=== PATIENT | male | born 1945 | race Caucasian/White ===

== ENCOUNTER 2019-09-30 12:02 | Inpatient (IN) | payer OTHER ==
[~2019-09-30] VITALS: Ht 177.8 cm; Wt 112.2 kg
[2019-09-30] MEDS ORDERED: SUCCINYLCHOLINE CHLORIDE 20 MG/ML 10ML VIAL IV ONE ×2 (12:12→12:15)
[2019-09-30] MEDS ORDERED: ETOMIDATE (2MG/ML) 20ML VIAL IV ONE ×2 (12:12→12:15)
[2019-09-30] MEDS: MIDAZOLAM DRIP 50 mg/50mL 50 ML IV SCH ×2 (12:15→21:53)
[2019-09-30] MEDS ORDERED: MIDAZOLAM DRIP 50 mg/50mL 50 ML IV ONE (12:20)
[2019-09-30] MEDS ORDERED: PROPOFOL 100 ML IV ONE (12:44)
[2019-09-30] MEDS ORDERED: SODIUM CHLORIDE 0.9% 1,000 ML IV ONE ×2 (12:45→12:50)
[2019-09-30 12:46] LABS: Basophils # (auto) 0.1 10 ^3/uL (0-0.2); Basophils % (auto) 0.7 % (0.0-2.0); Eosinophils # (auto) 0 10 ^3/uL (0-0.8); Lymphocytes # (auto) 1.5 10 ^3/uL (0.4-5.4); Lymphocytes % (auto) 17.6 % (10.0-50.0); Mean Corpuscular Hgb Conc. 31.3 g/dL (32.0-36.0); Mean Corpuscular Volume 86.3 fL (80.0-100.0); Monocytes # (auto) 0.7 10 ^3/uL (0-1.3); Monocytes % (auto) 8.1 % (0.0-12.0); Neutrophils # (auto) 6.3 10 ^3/uL (1.6-8.6); Neutrophils % (auto) 73.6 % (37.0-80.0); Nucleated Red Blood Cells % 0.3 %; Platelet Count (auto) 273 10^3/uL (140-450); Red Blood Cells 5.56 10^6/uL (4.5-5.90); Red Cell Distribution Width 18.4 % (11.8-14.3); White Blood Cell 8.6 10^3/uL (4.4-10.8)
[2019-09-30] MEDS ORDERED: InsuLIN R (HUMAN) 100 UNITS in SODIUM CHL 0.9% 99 ML IV SCH ×2 (12:50→18:04)
[2019-09-30] MEDS: SODIUM CHLORIDE 0.9% 1,000 ML IV SCH ×7 (12:50→22:04)
[2019-09-30] MEDS: PROPOFOL 100 ML IV SCH ×2 (12:50→22:41)
[2019-09-30] MEDS ORDERED: AZITHROMYCIN 500MG/ 250ML 250 ML IV ONE (13:00)
[2019-09-30] MEDS ORDERED: DEXTROSE (50%) 50ML SYRG IV PRN ×2 (13:00→18:15)
[2019-09-30] MEDS ORDERED: PIPERACILLIN-TAZOB 3.375GM 100 ML IV ONE (13:00)
[2019-09-30] MEDS ORDERED: SODIUM BICARBONATE 8.4 % INJ 50ML VIAL IV ONE ×3 (13:00→19:15)
[2019-09-30] MEDS ORDERED: INSULIN LANTUS (GLARGINE) 1 /0.01ml (100units/ml) SC ONE ×2 (13:00→18:15)
[2019-09-30] MEDS ORDERED: ACETAMINOPHEN 120 MG RECT SUPP PR ONE (13:04)
[2019-09-30 13:05] LABS: Albumin 2.7 g/dL (3.4-5.0); Anion Gap 22 (5-15); Blood Urea Nitrogen 13 mg/dL (7-18); Calcium 8.1 mg/dL (8.5-10.1); Carbon Dioxide 12 mmol/L (21-32); Chloride 99 mmol/L (98-107); Lactic Acid w/Reflex 11.8 mmol/L (0.4-2.0); Magnesium 2.5 mg/dL (1.6-2.6); Potassium 4.6 mmol/L (3.5-5.1); Sodium 133 mmol/L (136-145)
[2019-09-30 13:13] LABS: Alanine Aminotransferase 78 U/L (16-61); Alkaline Phosphatase 139 U/L (45-117); Aspartate Aminotransferase 97 U/L (15-37); BUN/Creatinine Ratio 7.1; Bilirubin, Total 0.3 mg/dL (0.2-1.0); GFR African American 47 mL/min; GFR Non-African American 39 mL/min; Lactate Dehydrogenase 596 U/L (87-241); Total Protein 7.8 g/dL (6.4-8.2)
[2019-09-30 13:30] LABS: Glucose 545 mg/dL (74-106)
[2019-09-30] MEDS ORDERED: ACETAMINOPHEN 650 MG RECT SUPP PR ONE (13:30)
[2019-09-30 13:36] LABS: CRP High Sensitivity > 19 mg/dL (< 0.3)
[2019-09-30 13:37] LABS: Urine Bacteria NONE SEEN /hpf (None Seen); Urine Blood 3+ /uL (Negative); Urine Mucus MODERATE (None Seen); Urine Specific Gravity 1.016 (1.001-1.035); Urine WBC 3 /hpf (0 - 3)
[2019-09-30] MEDS: ACCU-CHEK COMFORT CURVE STRIP VI SCH ×7 (13:45→23:54)
[2019-09-30] MEDS ORDERED: SODIUM CHLORIDE 0.9% 1,000 ML IV SCH ×3 (14:24→18:50)
[2019-09-30] MEDS ORDERED: DexAMETHasone SOD PHOS 10MG/1ML VIAL INJ IV ONE (14:30)
[2019-09-30] MEDS ORDERED: PANTOPRAZOLE 40 MG/10 ML VIAL INJ IV ONE (14:30)
[2019-09-30] MEDS ORDERED: DOCUSATE SOD 100 MG CAP PO PRN (14:30)
[2019-09-30] MEDS ORDERED: NITROGLYCERIN 0.4 MG SL TAB SL PRN ×2 (14:30→18:15)
[2019-09-30] MEDS ORDERED: ONDANSETRON HCL 4 MG/2 ML VIAL IV PRN (14:30)
[2019-09-30] MEDS ORDERED: MORPHINE SULF INJ 2 MG/ML SYRINGE 1ML IV PRN ×2 (14:30→18:15)
[2019-09-30] MEDS: D5W/SOD CHL 0.45%/KCL 20MEQ 1,000 ML IV SCH (18:04)
[2019-09-30] MEDS ORDERED: POTASSIUM CHL 20MEQ/100ML 200 ML IV PRN (18:15)
[2019-09-30 18:47] VITALS: BP 105/50
[2019-09-30] MEDS: cefTRIAXone 1GM/50ML D5W 50 ML IV SCH (18:54)
[2019-09-30] MEDS: MAGNESIUM SULFATE 1GM/100ML 200 ML IV ONE ×2 (18:55→18:58)
[2019-09-30 19:50] LABS: Basophils # (auto) 0 10 ^3/uL (0-0.2); Basophils % (auto) 0.2 % (0.0-2.0); Eosinophils # (auto) 0 10 ^3/uL (0-0.8); Hematocrit 43.7 % (41.0-53.0); Hemoglobin 14.3 g/dL (13.5-17.5); Lymphocytes # (auto) 0.2 10 ^3/uL (0.4-5.4); Lymphocytes % (auto) 2.7 % (10.0-50.0); Mean Corpuscular Hemoglobin 27.2 pg (28.0-32.0); Mean Corpuscular Hgb Conc. 32.6 g/dL (32.0-36.0); Mean Corpuscular Volume 83.4 fL (80.0-100.0); Monocytes # (auto) 0.2 10 ^3/uL (0-1.3); Monocytes % (auto) 4.1 % (0.0-12.0); Neutrophils # (auto) 5.7 10 ^3/uL (1.6-8.6); Nucleated Red Blood Cells % 0.1 %; Platelet Count (auto) 179 10^3/uL (140-450); Red Blood Cells 5.24 10^6/uL (4.5-5.90); Red Cell Distribution Width 17.3 % (11.8-14.3); White Blood Cell 6.1 10^3/uL (4.4-10.8)
[2019-09-30] MEDS ORDERED: methylPREDNISolone SOD SUCC 40 MG/ML VL IV ONE (20:15)
[2019-09-30] MEDS ORDERED: ACETAMINOPHEN 650 mg PER 20 mL UD PO ONE (20:15)
[2019-09-30] MEDS ORDERED: diphenhdrAMINE HCL 50 MG/1 ML VL IV ONE (20:15)
[2019-09-30 20:35] LABS: BUN/Creatinine Ratio 9.2; Calcium 7.6 mg/dL (8.5-10.1); Magnesium 2.8 mg/dL (1.6-2.6); Phosphorus 1.4 mg/dL (2.5-4.90); Potassium 3.8 mmol/L (3.5-5.1)
[2019-09-30 20:40] VITALS: BP 152/77
[2019-09-30] MEDS: TOCILIZUMAB 400 MG in SODIUM CHL 0.9% 80 ML IV SCH (20:45)
[2019-09-30 21:22] LABS: Amphetamine Screen, Urine NEGATIVE (NEGATIVE); Barbiturate Scree,Urine NEGATIVE (NEGATIVE); Benzodiazephine Screen, Urine POSITIVE (NEGATIVE); Cannabinoid Screen, Urine NEGATIVE (NEGATIVE); Cocaine Screen, Urine NEGATIVE (NEGATIVE); Opiate Scree,Urine NEGATIVE (NEGATIVE); Phencyclidine Screen, Urine NEGATIVE (NEGATIVE)
[2019-09-30] MEDS: ASCORBIC ACID 500 MG TAB PO SCH (21:52)
[2019-09-30] MEDS: DexAMETHasone SOD PHOS 4 MG/1ML SDV INJ IV SCH (21:52)
[2019-09-30] MEDS: FAMOTIDINE 20 MG TAB PO SCH (21:52)
[2019-09-30] MEDS ORDERED: FUROSEMIDE 40 MG/4 ML VIAL ONE (21:59)
[2019-09-30] MEDS ORDERED: FUROSEMIDE 40 MG/4 ML VIAL IV ONE (22:00)
[2019-09-30] MEDS ORDERED: POTA1080 (22:16)
[2019-09-30] MEDS ORDERED: GLIP10TA16 (22:16)
[2019-09-30] MEDS ORDERED: METF-372 (22:16)
[2019-09-30] MEDS ORDERED: LEVO150T10 (22:16)
[2019-09-30] MEDS ORDERED: BACL10TA (22:16)
[2019-09-30] MEDS ORDERED: MET25T (22:16)
[2019-09-30] MEDS ORDERED: GABA300C10 (22:16)
[2019-09-30] MEDS ORDERED: HYDR-4072 (22:16)
[2019-09-30] MEDS ORDERED: BRIM0.159 (22:16)
[2019-09-30] MEDS ORDERED: FLUO40CA (22:16)
[2019-09-30] MEDS ORDERED: LOVA40TA72 (22:16)
[2019-09-30] MEDS ORDERED: TAMS0.4C36 (22:16)
[2019-09-30] MEDS ORDERED: PRED-158 (22:16)
[2019-09-30 22:35] VITALS: BP 100/59
[2019-09-30 23:07] LABS: CRP High Sensitivity > 19.0 mg/dL (< 0.3); Lactate Dehydrogenase 695 U/L (87-241)
[2019-10-01] VITALS (12 sets, daily range): BP systolic 95–127; BP diastolic 49–57
[2019-10-01] MEDS: SODIUM CHLORIDE 0.9% 1,000 ML IV SCH ×2 (00:04→06:52)
[2019-10-01] MEDS: D5W/SOD CHL 0.45%/KCL 20MEQ 1,000 ML IV SCH ×2 (00:44→07:49)
[2019-10-01] MEDS: ACCU-CHEK COMFORT CURVE STRIP VI SCH ×14 (01:54→22:42)
[2019-10-01 02:05] LABS: Albumin 1.8 g/dL (3.4-5.0); Calcium 6.1 mg/dL (8.5-10.1)
[2019-10-01 02:10] LABS: Bilirubin, Total 0.3 mg/dL (0.2-1.0); Total Protein 5.9 g/dL (6.4-8.2)
[2019-10-01] MEDS: PROPOFOL 100 ML IV SCH ×3 (02:26→05:49)
[2019-10-01 04:04] LABS: INR 0.96 (0.9-1.15); Partial Thromboplastin Time 29.6 sec (23.64-32.05)
[2019-10-01] MEDS ORDERED: HEPARIN DRIP/D5W 100UNITS/ML 250 ML IV ONE (04:23)
[2019-10-01] MEDS ORDERED: HEPARIN SODIUM (PORCINE) 5000 UNITS/ML 1ML VIAL ONE ×2 (04:24→08:44)
[2019-10-01] MEDS ORDERED: HEPARIN SODIUM (PORCINE) 5000 UNITS/ML 1ML VIAL IV ONE (04:45)
[2019-10-01] MEDS ORDERED: InsuLIN R (HUMAN) 100 UNITS in SODIUM CHL 0.9% 99 ML IV SCH (05:08)
[2019-10-01 05:13] LABS: Basophils # (auto) 0 10 ^3/uL (0-0.2); Basophils % (auto) 0.3 % (0.0-2.0); Eosinophils # (auto) 0 10 ^3/uL (0-0.8); Hematocrit 36.5 % (41.0-53.0); Hemoglobin 12.1 g/dL (13.5-17.5); Lymphocytes # (auto) 0.2 10 ^3/uL (0.4-5.4); Lymphocytes % (auto) 3.7 % (10.0-50.0); Mean Corpuscular Hemoglobin 27.8 pg (28.0-32.0); Mean Corpuscular Hgb Conc. 33.2 g/dL (32.0-36.0); Mean Corpuscular Volume 83.7 fL (80.0-100.0); Monocytes # (auto) 0.1 10 ^3/uL (0-1.3); Monocytes % (auto) 2.7 % (0.0-12.0); Neutrophils # (auto) 4.3 10 ^3/uL (1.6-8.6); Neutrophils % (auto) 93.3 % (37.0-80.0); Nucleated Red Blood Cells % 0.1 %; Platelet Count (auto) 175 10^3/uL (140-450); Red Blood Cells 4.37 10^6/uL (4.5-5.90); Red Cell Distribution Width 17.7 % (11.8-14.3); White Blood Cell 4.6 10^3/uL (4.4-10.8)
[2019-10-01] MEDS: HEPARIN DRIP/D5W 100UNITS/ML 250 ML IV SCH (05:20)
[2019-10-01 05:34] LABS: BUN/Creatinine Ratio 9.9; Calcium 6.7 mg/dL (8.5-10.1); Potassium 4.2 mmol/L (3.5-5.1)
[2019-10-01] MEDS: MIDAZOLAM DRIP 50 mg/50mL 50 ML IV SCH (05:50)
[2019-10-01] MEDS ORDERED: InsuLIN REG 1unit/0.01ml Soln (100units/ml) ONE (06:25)
[2019-10-01] MEDS: InsuLIN REG 1unit/0.01ml Soln (100units/ml) SC SCH ×3 (06:52→17:00)
--- NOTE | 2019-10-01 06:54 | NUR ---
Respiratory note: RECEIVED PATIENT ON V2 V200 VENT ORALLY INTUBATED WITH AN 8.0 ETT SECURED VIA ODALYS AT THE 24CM MARKING AT THE LIP, AND MECHANICALLY VENTILATED WITH THE CHARTED SETTINGS. SPO2 95%, LUNG SOUNDS DIM T/O, NO SECRETIONS WHEN SUCTIONED. SKIN IS WARM/DRY TO THE TOUCH AND IS INTACT NEAR ODALYS SITE. THERE IS A NGT IN THE RIGHT NARE AND SECURED TO THE NOSE, AND A TRIPLE LUMEN CENTRAL LINE IS PLACED IN THE RIGHT IJ. NON PITTING EDEMA NOTED IN BILATERAL UPPER EXTREMITIES, AND PITTING EDEMA NOTED IN BILATERAL LOWER EXTREMITIES. NO NEW AM CXR TO ASSESS. PATIENT IS UNRESPONSIVE TO BOTH VERBAL/TACTILE STIMULI AND IS SEDATED ON VERSED AND PROPOFOL DRIPS. HE IS RESTING COMFORTABLY AND TOLERATING VENT WELL, NO CHANGES MADE. VENT PLUGGED INTO RED OUTLET AND ALL ALARMS ARE SET AND AUDIBLE. WILL CONTINUE TO ASSESS PATIENT WELL VENTILATOR FUNCTION.
[2019-10-01] MEDS ORDERED: methylPREDNISolone SOD SUCC 40 MG/ML VL IV ONE (08:15)
[2019-10-01] MEDS ORDERED: ACETAMINOPHEN 650 mg PER 20 mL UD PO ONE (08:15)
[2019-10-01] MEDS ORDERED: diphenhdrAMINE HCL 50 MG/1 ML VL IV ONE (08:15)
[2019-10-01] MEDS ORDERED: ceFAZolin 1GM/50ML 100 ML IV ONE (08:45)
[2019-10-01] MEDS ORDERED: INSULIN LANTUS (GLARGINE) 1 /0.01ml (100units/ml) SC SCH ×2 (10:00)
[2019-10-01] MEDS: TOCILIZUMAB 400 MG in SODIUM CHL 0.9% 80 ML IV SCH (10:00)
[2019-10-01] MEDS ORDERED: PIPERACILLIN-TAZOB 3.375GM 100 ML IV ONE (10:00)
[2019-10-01] MEDS ORDERED: AZITHROMYCIN 500MG/ 250ML 250 ML IV ONE (10:00)
[2019-10-01] MEDS ORDERED: ENOXAPARIN SOD 30 MG/0.3 ML SYRINGE SC SCH (10:00)
--- NOTE | 2019-10-01 10:18 | NUR ---
Respiratory note: VENT CHANGES MADE: RATE INCREASED TO 24, VT INCREASED TO 600, AND PEEP INCREASED TO [address] CRAMER'S VERBAL ORDER.
[2019-10-01] MEDS ORDERED: POTASSIUM PHOSPHATE 44 MEQ in D5W 5% 250 ML IV ONE (11:30)
[2019-10-01] MEDS ORDERED: FUROSEMIDE 40 MG/4 ML VIAL IV ONE (11:30)
[2019-10-01 11:40] LABS: Calcium 6.6 mg/dL (8.5-10.1); Potassium 4.1 mmol/L (3.5-5.1)
[2019-10-01 11:58] LABS: INR 0.98 (0.9-1.15)
[2019-10-01 12:03] LABS: Partial Thromboplastin Time 77.9 sec (23.64-32.05)
--- NOTE | 2019-10-01 12:20 | NUR ---
Respiratory note: FIO2 DECREASED TO 90% AT THIS TIME POST ABG RESULTS. RN MADE AWARE OF CHANGE. SPO2 MAINTAINED AT 97%, WILL CONTINUE TO TITRATE TOLERATED.
[2019-10-01] MEDS: DexAMETHasone SOD PHOS 4 MG/1ML SDV INJ IV SCH ×2 (12:30→22:21)
[2019-10-01] MEDS: cefTRIAXone 1GM/50ML D5W 50 ML IV SCH (12:30)
[2019-10-01] MEDS: ZINC SULFATE 220mg CAP or TAB PO SCH (12:30)
[2019-10-01] MEDS: AZITHROMYCIN 500MG/ 250ML 250 ML IV SCH (12:30)
[2019-10-01] MEDS ORDERED: SODIUM BICARBONATE 8.4 % INJ 50ML VIAL IV ONE (12:30)
[2019-10-01] MEDS: ASCORBIC ACID 500 MG TAB PO SCH ×2 (12:30→22:00)
[2019-10-01] MEDS ORDERED: MET25T PO (13:03)
[2019-10-01] MEDS ORDERED: TAMS0.4C36 PO (13:03)
[2019-10-01] MEDS ORDERED: GLIP10TA16 PO (13:03)
[2019-10-01] MEDS ORDERED: RAMI2.5C33 PO (13:03)
[2019-10-01] MEDS ORDERED: BRIM0.159 EACHEYE (13:03)
[2019-10-01] MEDS ORDERED: METF-372 PO (13:03)
[2019-10-01] MEDS ORDERED: POTA1080 PO (13:03)
[2019-10-01] MEDS ORDERED: PRED-158 PO (13:03)
[2019-10-01] MEDS ORDERED: FLUO40CA PO (13:03)
[2019-10-01] MEDS ORDERED: LOVA40TA72 PO (13:03)
[2019-10-01] MEDS ORDERED: GABA300C10 PO (13:03)
[2019-10-01] MEDS ORDERED: IBAN1TAB2 PO (13:03)
[2019-10-01] MEDS ORDERED: BACL10TA PO (13:03)
[2019-10-01] MEDS ORDERED: PANT40TA2 PO (13:03)
[2019-10-01] MEDS ORDERED: LEVO150T10 PO (13:03)
[2019-10-01] MEDS: IPRATROPIUM BROM 0.5 MG/2.5ML INH SOL NEB SCH ×3 (16:44→22:00)
[2019-10-01] MEDS: ALBUTEROL SULF 2.5 MG/0.5ML(0.5%) NEB SOLN NEB SCH ×3 (16:44→22:00)
[2019-10-01] MEDS ORDERED: SODIUM PHOSPHATES 20 MEQ in SODIUM CHL 0.9% 100 ML IV ONE (16:45)
[2019-10-01 17:09] LABS: BUN/Creatinine Ratio 8.1; Calcium 6.5 mg/dL (8.5-10.1); Potassium 3.9 mmol/L (3.5-5.1)
[2019-10-01 17:27] LABS: INR 0.97 (0.9-1.15); Partial Thromboplastin Time 56.4 sec (23.64-32.05)
[2019-10-01] MEDS: SODIUM BICARB 50ML SYR 75 ML in SOD CHL 0.45% 1,000 ML IV SCH (18:30)
[2019-10-01] MEDS: FUROSEMIDE 20 MG/2 ML VIAL IV SCH (20:43)
[2019-10-01] MEDS: FAMOTIDINE 20 MG TAB PO SCH (22:00)
[2019-10-01] MEDS: INSULIN LANTUS (GLARGINE) 1 /0.01ml (100units/ml) SC SCH (22:22)
[2019-10-01 22:59] LABS: INR 0.96 (0.9-1.15); Partial Thromboplastin Time 53.1 sec (23.64-32.05)
[2019-10-02] VITALS (97 sets, daily range): BP systolic 99–135; BP diastolic 53–78
[2019-10-02] MEDS: ACCU-CHEK COMFORT CURVE STRIP VI SCH ×9 (00:24→20:00)
--- NOTE | 2019-10-02 02:00 | NUR ---
Respiratory note: PT TRANSPORTED TO ICU BED 112 VIA TRANSPORT VENT WITHOUT INCIDENT.
[2019-10-02] MEDS ORDERED: InsuLIN REG 1unit/0.01ml Soln (100units/ml) ONE (02:39)
[2019-10-02 05:41] LABS: Basophils # (auto) 0 10 ^3/uL (0-0.2); Basophils % (auto) 0.1 % (0.0-2.0); Eosinophils # (auto) 0 10 ^3/uL (0-0.8); Hematocrit 36.9 % (41.0-53.0); Lymphocytes # (auto) 0.2 10 ^3/uL (0.4-5.4); Lymphocytes % (auto) 3.5 % (10.0-50.0); Mean Corpuscular Hemoglobin 27.2 pg (28.0-32.0); Mean Corpuscular Hgb Conc. 32.5 g/dL (32.0-36.0); Mean Corpuscular Volume 83.6 fL (80.0-100.0); Monocytes # (auto) 0.2 10 ^3/uL (0-1.3); Monocytes % (auto) 3.6 % (0.0-12.0); Neutrophils # (auto) 5.9 10 ^3/uL (1.6-8.6); Neutrophils % (auto) 92.8 % (37.0-80.0); Nucleated Red Blood Cells % 0.1 %; Platelet Count (auto) 205 10^3/uL (140-450); Red Blood Cells 4.41 10^6/uL (4.5-5.90); Red Cell Distribution Width 17.9 % (11.8-14.3); White Blood Cell 6.3 10^3/uL (4.4-10.8)
[2019-10-02 05:54] LABS: INR 0.97 (0.9-1.15); Partial Thromboplastin Time 45.4 sec (23.64-32.05)
[2019-10-02 05:58] LABS: Potassium 3.9 mmol/L (3.5-5.1)
[2019-10-02] MEDS: FUROSEMIDE 20 MG/2 ML VIAL IV SCH ×2 (06:00→18:14)
[2019-10-02 06:09] LABS: BUN/Creatinine Ratio 8.3; Calcium 6.7 mg/dL (8.5-10.1)
[2019-10-02] MEDS: IPRATROPIUM BROM 0.5 MG/2.5ML INH SOL NEB SCH ×6 (06:59→22:21)
[2019-10-02] MEDS: ALBUTEROL SULF 2.5 MG/0.5ML(0.5%) NEB SOLN NEB SCH ×6 (07:00→22:21)
[2019-10-02] MEDS ORDERED: InsuLIN R (HUMAN) 100 UNITS in SODIUM CHL 0.9% 99 ML IV SCH (07:05)
[2019-10-02] MEDS ORDERED: DEXTROSE (50%) 50ML SYRG IV PRN ×2 (07:15→10:45)
[2019-10-02] MEDS: InsuLIN REG 1unit/0.01ml Soln (100units/ml) SC SCH ×4 (07:38→20:00)
[2019-10-02] MEDS: HEPARIN DRIP/D5W 100UNITS/ML 250 ML IV SCH (07:42)
--- NOTE | 2019-10-02 08:00 | NUR ---
RESPIRATORY RT Kia decreased FIO2 to 90%.
[2019-10-02] MEDS: MIDAZOLAM DRIP 50 mg/50mL 50 ML IV SCH ×2 (08:08→10:50)
[2019-10-02] MEDS: SODIUM BICARB 50ML SYR 75 ML in SOD CHL 0.45% 1,000 ML IV SCH ×2 (08:31→19:10)
[2019-10-02] MEDS: NOREPINEPHRINE 8 MG/250ML KIT 250 ML IV SCH (08:33)
[2019-10-02] MEDS: cefTRIAXone 1GM/50ML D5W 50 ML IV SCH (08:58)
--- NOTE | 2019-10-02 09:10 | NUR ---
FAMILY Received phone call from patients daughter Andres, correct password provided and updated on patient condition.
[2019-10-02] MEDS: ASCORBIC ACID 500 MG TAB PO SCH (09:45)
[2019-10-02] MEDS: DexAMETHasone SOD PHOS 4 MG/1ML SDV INJ IV SCH (09:45)
[2019-10-02] MEDS: ZINC SULFATE 220mg CAP or TAB PO SCH (09:45)
[2019-10-02] MEDS: AZITHROMYCIN 500MG/ 250ML 250 ML IV SCH (09:45)
[2019-10-02] MEDS: INSULIN LANTUS (GLARGINE) 1 /0.01ml (100units/ml) SC SCH (09:46)
--- NOTE | 2019-10-02 10:00 | NUR ---
MD Dr. Leavitt at bedside updated on patient condition with no new orders, MD called and spoke to Belén and Marilyn regarding plan of care and obtained consent for plasma infusion for treatment of COVID 19.
--- NOTE | 2019-10-02 10:10 | NUR ---
CONSENT Obtain consent for blood transfusion via telephone with Belén, patients .
--- NOTE | 2019-10-02 10:15 | NUR ---
MD Dr. Solomon called and updated on patient condition with new orders. This RN to input into system. Will carry out orders. aware of slight pink tinge noted to urine output and patient is on Heparin GTT MD states " Consult Dr. Martinez and let him know about Heparin GTT."
--- NOTE | 2019-10-02 12:00 | NUR ---
RESPIRATORY RT Kia at bedside decreased FIO2 TO 80%.
[2019-10-02] MEDS: PROPOFOL 100 ML IV SCH (12:44)
--- NOTE | 2019-10-02 14:00 | NUR ---
RESPIRATORY RT Kia at bedside decreased FIO2 to 70%.
[2019-10-02 15:17] LABS: INR 0.95 (0.9-1.15); Partial Thromboplastin Time 60.8 sec (23.64-32.05)
--- NOTE | 2019-10-02 15:20 | NUR ---
HEPARIN GTT Received PTT results of 60.8 per protocol no change/bolus will continue Heparin GTT at current rate.
[2019-10-02 15:35] LABS: BUN/Creatinine Ratio 9.3; Calcium 6.6 mg/dL (8.5-10.1); Potassium 4.1 mmol/L (3.5-5.1)
[2019-10-02] MEDS: LINEZOLID 600MG/300ML 300 ML IV SCH (16:15)
--- NOTE | 2019-10-02 16:58 | NUR ---
WOUND CARE NOTE: Added patient to wound care monitoring list due to intubation status, putting patient to high risk for skin breakdown. Patient is 74 years old male with admitting diagnosis of Sepsis, DKA. Patient is resting in ICU bed in Rm. 112, on isolation due to CoVid. Patient is intubated, and mechanically ventilated. Patient appears to be in no pain using Mann Silverio Faces Pain Scale. HIs Luiz score is 15. Patient came in with open partial thickness to bilateral dorsal hand. Bedside nurse took photograph of patient's skin tear upon admission for reference, cleansed and applied Opti foam gentle dressing per MD order. Patient's nurse, ZAID Faria just got out of patient's room, clustering care for less exposure, reported that no other wound noted upon assessment other than skin tears to bilateral hands, no pressure injury per bedside nurse. He's receiving BID/PRN cleaning and application of Barrier cream to sacral, buttocks with preventative Opti foam sacral dressing. RECOMMENDATION: Nursing to continue with BID/PRN cleaning and application of Barrier cream to sacral, buttocks as preventative,continuation of Q3days dressing change to bilateral hand skin tear per MD order, Dietary consult, frequent turning and repositioning schedule as condition permits, redistribute pressure points with pillows, elevate heels on pillows, continue monitoring by wound care while patient is intubated.
--- NOTE | 2019-10-02 18:45 | NUR ---
RESPIRATORY RT decreased FIO2 to 60%.
[2019-10-03] VITALS (107 sets, daily range): BP systolic 107–149; BP diastolic 51–93
[2019-10-03] MEDS: ACCU-CHEK COMFORT CURVE STRIP VI SCH ×6 (00:29→23:00)
[2019-10-03] MEDS: InsuLIN REG 1unit/0.01ml Soln (100units/ml) SC SCH ×6 (00:30→23:10)
[2019-10-03] MEDS: NOREPINEPHRINE 8 MG/250ML KIT 250 ML IV SCH (01:30)
[2019-10-03 01:52] LABS: INR 0.99 (0.9-1.15); Partial Thromboplastin Time 38.8 sec (23.64-32.05)
[2019-10-03] MEDS: IPRATROPIUM BROM 0.5 MG/2.5ML INH SOL NEB SCH ×6 (02:25→22:26)
[2019-10-03] MEDS: ALBUTEROL SULF 2.5 MG/0.5ML(0.5%) NEB SOLN NEB SCH ×6 (02:25→22:26)
[2019-10-03] MEDS: MIDAZOLAM DRIP 50 mg/50mL 50 ML IV SCH ×2 (03:34→08:54)
[2019-10-03] MEDS: HEPARIN DRIP/D5W 100UNITS/ML 250 ML IV SCH (03:52)
[2019-10-03 05:25] LABS: Potassium 3.7 mmol/L (3.5-5.1)
[2019-10-03 05:35] LABS: BUN/Creatinine Ratio 10.9; Calcium 6.4 mg/dL (8.5-10.1)
[2019-10-03] MEDS: FUROSEMIDE 20 MG/2 ML VIAL IV SCH ×2 (07:00→18:00)
[2019-10-03] MEDS: cefTRIAXone 1GM/50ML D5W 50 ML IV SCH (08:55)
[2019-10-03] MEDS: SODIUM BICARB 50ML SYR 75 ML in SOD CHL 0.45% 1,000 ML IV SCH ×2 (09:30→23:50)
--- NOTE | 2019-10-03 09:30 | NUR ---
MD Dr. Leavitt at bedside updated on patient condition with new order after speaking to MD regarding Blood glucose in the 400's. This RN to input into system. Will carry out orders.
[2019-10-03] MEDS: PROPOFOL 100 ML IV SCH ×3 (09:57→18:40)
--- NOTE | 2019-10-03 10:00 | NUR ---
MD Dr. Hardin at bedside updated on patient condition with new orders to turn off Heparin GTT secondary to urine has become pink tinged in color. Will carry put orders.
[2019-10-03] MEDS: AZITHROMYCIN 500MG/ 250ML 250 ML IV SCH (10:05)
--- NOTE | 2019-10-03 10:20 | NUR ---
FAMILY Attempted to call patients daughter Sasha back at [phone] but phone number states "it has been disconnected."
--- NOTE | 2019-10-03 10:41 | NUR ---
Respiratory note: ROUTINE VENT CHECK COMPLETE. FIO2 TITRATED FROM 80%, TO 60% PER DR CRAMER ORDER. PT TOLERATING CHANGE WELL. RN AWARE. WILL CONTINUE TO MONITOR PT.
[2019-10-03] MEDS: DexAMETHasone SOD PHOS 4 MG/1ML SDV INJ IV SCH ×2 (10:43)
[2019-10-03] MEDS: LINEZOLID 600MG/300ML 300 ML IV SCH ×3 (10:43→23:00)
[2019-10-03] MEDS: ZINC SULFATE 220mg CAP or TAB PO SCH (10:43)
[2019-10-03] MEDS: ASCORBIC ACID 500 MG TAB PO SCH ×3 (10:44→23:00)
[2019-10-03] MEDS: INSULIN LANTUS (GLARGINE) 1 /0.01ml (100units/ml) SC SCH ×3 (11:05→22:38)
--- NOTE | 2019-10-03 12:57 | NUR ---
Consult Consider Jevity 1.2 at 35ml/hr per MD approval if TF is considered with prostat BID. Increase rate of Jevity 1.2 if pt propofol decreases. Propofol at current rate provides 913 kcal from fat Est energy needs 0468-7751 kcal (14-18 kcal/kg BW 115.298kg) Est protein needs 69-86g (0.6-0.75g/kg BW 115.289 kg, r/t elevated RFT, no HD) Will reassess prn. Addendum: 10/03/19 at [address] Amended: Links added.
--- NOTE | 2019-10-03 13:50 | NUR ---
PHYSICAL THERAPY Physical therapist came by and unable to perform rang of motion secondary to COVID 19 positive.
--- NOTE | 2019-10-03 16:09 | NUR ---
assessment Patient is a 74 year old male who is in ICU on a vent. Per patients daughter Marilyn Shell [phone] prior to admission patient lived home with his and needed some assistance with cooking and cleaning. Patient uses a fww at home. Patients PCP is Dr Roberson. Per Marilyn patient became ill last Monday09/25/19, patient went to ER at [facility] on Monday09/27/19 and was sent home the same day with anti nausea medication. Per Marilyn patient became more weak over the weekend with shortness of breath and she and patients took patient to [facility] urgent care on Monday morning. Patient was rushed to ER by ambulance and placed on a vent. Patient was found to be covid positive. Patients and daughter are self quarantine and has been tested for Covid. I informed Marilyn patients post discharge needs to be determined after extubation and prior to discharge. Marilyn verbalized understanding. Addendum: 10/03/19 at 1615 by Smita BARILLAS Amended: Links added.
--- NOTE | 2019-10-03 21:00 | NUR ---
NO SEDATION VACATION PERFORMED, IT IS INAPPROPRIATE AT THIS TIME; WILL CONT. TO MONITOR.
[2019-10-03] MEDS: FAMOTIDINE 20 MG TAB PO SCH ×2 (23:00)
[2019-10-04] VITALS (100 sets, daily range): BP systolic 103–139; BP diastolic 57–74
[2019-10-04] MEDS: fentaNYL Drip 2500mCg/250mlNS 250 ML IV SCH ×2 (00:52→08:22)
[2019-10-04] MEDS: NOREPINEPHRINE 8 MG/250ML KIT 250 ML IV SCH (01:30)
[2019-10-04] MEDS: IPRATROPIUM BROM 0.5 MG/2.5ML INH SOL NEB SCH ×6 (02:31→22:37)
[2019-10-04] MEDS: ALBUTEROL SULF 2.5 MG/0.5ML(0.5%) NEB SOLN NEB SCH ×6 (02:32→22:37)
[2019-10-04] MEDS: FUROSEMIDE 20 MG/2 ML VIAL IV SCH ×2 (06:00→17:50)
[2019-10-04] MEDS: InsuLIN REG 1unit/0.01ml Soln (100units/ml) SC SCH ×5 (06:20→17:37)
[2019-10-04] MEDS: ACCU-CHEK COMFORT CURVE STRIP VI SCH ×4 (06:24→17:37)
[2019-10-04 06:43] LABS: Basophils # (auto) 0 10 ^3/uL (0-0.2); Basophils % (auto) 0.1 % (0.0-2.0); Eosinophils # (auto) 0 10 ^3/uL (0-0.8); Hematocrit 35.8 % (41.0-53.0); Hemoglobin 11.8 g/dL (13.5-17.5); Lymphocytes # (auto) 0.3 10 ^3/uL (0.4-5.4); Lymphocytes % (auto) 4.9 % (10.0-50.0); Mean Corpuscular Hemoglobin 27.1 pg (28.0-32.0); Mean Corpuscular Volume 82.2 fL (80.0-100.0); Monocytes # (auto) 0.3 10 ^3/uL (0-1.3); Monocytes % (auto) 4.4 % (0.0-12.0); Neutrophils # (auto) 5.2 10 ^3/uL (1.6-8.6); Neutrophils % (auto) 90.6 % (37.0-80.0); Nucleated Red Blood Cells % 0.1 %; Platelet Count (auto) 259 10^3/uL (140-450); Red Blood Cells 4.36 10^6/uL (4.5-5.90); Red Cell Distribution Width 17.4 % (11.8-14.3); White Blood Cell 5.7 10^3/uL (4.4-10.8)
[2019-10-04 07:05] LABS: BUN/Creatinine Ratio 14.7; Calcium 6.5 mg/dL (8.5-10.1); Potassium 3.1 mmol/L (3.5-5.1)
[2019-10-04] MEDS: cefTRIAXone 1GM/50ML D5W 50 ML IV SCH (09:11)
[2019-10-04] MEDS: AZITHROMYCIN 500MG/ 250ML 250 ML IV SCH (09:41)
[2019-10-04] MEDS: INSULIN LANTUS (GLARGINE) 1 /0.01ml (100units/ml) SC SCH ×2 (10:00→22:00)
[2019-10-04] MEDS: DexAMETHasone SOD PHOS 4 MG/1ML SDV INJ IV SCH (10:03)
[2019-10-04] MEDS: LINEZOLID 600MG/300ML 300 ML IV SCH ×2 (10:03→22:00)
[2019-10-04] MEDS: ASCORBIC ACID 500 MG TAB PO SCH ×2 (10:04→22:00)
[2019-10-04] MEDS: ZINC SULFATE 220mg CAP or TAB PO SCH (10:04)
[2019-10-04] MEDS ORDERED: SODIUM BICARB 50ML SYR 50 ML in SOD CHL 0.45% 1,000 ML IV SCH (11:30)
[2019-10-04] MEDS: POTASSIUM CHL 20MEQ/100ML 100 ML IV SCH ×2 (11:30→13:30)
--- NOTE | 2019-10-04 12:00 | NUR ---
UNABLE TO REPOSITION PATIENT UNABLE TO REPOSITION PATIENT DUE TO PATIENT O2 SAT DECREASING INTO MID 80'S AND TAKING SEVERAL MINUTES TO BRING UP OXYGEN LEVELS. DR. CRAMER, ANDREZ AND CELESTE ALL AWARE.
[2019-10-04] MEDS: MIDAZOLAM DRIP 50 mg/50mL 50 ML IV SCH ×2 (12:15→22:00)
--- NOTE | 2019-10-04 12:25 | NUR ---
DECREASED RESP. RATE TO 20, PER DR. CRAMER'S ORDERS.
--- NOTE | 2019-10-04 12:51 | NUR ---
UPDATED PATIENTS DAUGHTER ON PATIENTS CURRENT CONDITION. ALL QUESTIONS ANSWERED.
--- NOTE | 2019-10-04 19:17 | NUR ---
Report received from ZAID Allen. Patient intubated ETT 8.0 24 CM at L/L. Vent settings: AC 20 Tv 600 FiO2 40%, PEEP 12. Patient IV Drips: Propofol 30 mcg/kg/min; Versed 15 mg/hr; Fentanyl 25 mcg/hr. Will continue with POC; and, will continue to monitor VS, RASS, and clinical status.
[2019-10-04] MEDS: FAMOTIDINE 20 MG TAB PO SCH (22:00)
--- NOTE | 2019-10-04 22:00 | NUR ---
Versed bag changed to new bag.
--- NOTE | 2019-10-04 22:45 | NUR ---
Diprovan bottle changed to new bottle.
[2019-10-04] MEDS: PROPOFOL 100 ML IV SCH (22:58)
--- NOTE | 2019-10-04 23:40 | NUR ---
Respiratory note: CHANGED PT TO V5 VENT AT THIS TIME DUE TO PREVIOUS VENT RESTARTING WHILE PT WAS CONNECTED. PT DESAT TO 84% BEFORE VENT TURNED BACK ON AND STARTED VENTILATING. PT RECOVERED TO SAT OF 94%
[2019-10-05] VITALS (97 sets, daily range): BP systolic 93–136; BP diastolic 60–79
--- NOTE | 2019-10-05 | NUR ---
Accucheck 265 mg/dl. Patient covered with Regular Insulin S/S 6 units SQ.
[2019-10-05] MEDS: InsuLIN REG 1unit/0.01ml Soln (100units/ml) SC SCH ×4 (00:25→18:24)
[2019-10-05] MEDS: fentaNYL Drip 2500mCg/250mlNS 250 ML IV SCH (00:52)
[2019-10-05] MEDS: NOREPINEPHRINE 8 MG/250ML KIT 250 ML IV SCH (01:30)
[2019-10-05] MEDS: MIDAZOLAM DRIP 50 mg/50mL 50 ML IV SCH (02:01)
[2019-10-05] MEDS: ALBUTEROL SULF 2.5 MG/0.5ML(0.5%) NEB SOLN NEB SCH ×6 (02:43→22:15)
[2019-10-05] MEDS: IPRATROPIUM BROM 0.5 MG/2.5ML INH SOL NEB SCH ×6 (02:43→22:15)
[2019-10-05] MEDS: PROPOFOL 100 ML IV SCH ×6 (03:01→21:37)
--- NOTE | 2019-10-05 03:20 | NUR ---
Warping Machine Operator at bedside. Spool Maker collected blood from CVC and specimens given to Warping Machine Operator, specimens sent to lab.
--- NOTE | 2019-10-05 06:00 | NUR ---
Accucheck 170 mg/dl. Patient covered with Regular Insulin 3 units SQ.
[2019-10-05] MEDS: FUROSEMIDE 20 MG/2 ML VIAL IV SCH ×2 (06:24→18:00)
[2019-10-05] MEDS: ACCU-CHEK COMFORT CURVE STRIP VI SCH ×4 (06:25→18:23)
[2019-10-05] MEDS: cefTRIAXone 1GM/50ML D5W 50 ML IV SCH (09:16)
[2019-10-05] MEDS: DexAMETHasone SOD PHOS 4 MG/1ML SDV INJ IV SCH (11:15)
[2019-10-05] MEDS: AZITHROMYCIN 500MG/ 250ML 250 ML IV SCH (11:16)
--- NOTE | 2019-10-05 11:55 | NUR ---
Nutrition Followup Notes Wt: 115.2 kg Pt continues to be intubated sedated with propofol @ 20.75 ml/hr providing 547 kcals from fats. pt continues to be NPO Est energy needs 5602-7380 kcal (14-18 kcal/kg BW 115.298kg) Est protein needs 69-86g (0.6-0.75g/kg BW 115.289 kg, r/t elevated RFT, no HD) Will reassess prn. LABS: BUN 34 H, CREAT 2.31 H, CA 6.5 L GI: Pt has no BM reported per RN doc. BS: 15 mod risk. Please refer to wound assessment report for full details. PES: 1) Altered nutrition related lab values r.t current chronic medical condition aeb elevated RFTs, hyperglycemia, severe hypoalb Recommendation: 1) Consider alternate nutrition if pt is NPO >48 hours 2) Consider Glucerna at 45 ml/hr on current rate of propofol 3) Advance diet as medically feasible to Renal Speicifc 70g if pt is not on HD 4) F/u 2-3 days
[2019-10-05] MEDS: ASCORBIC ACID 500 MG TAB PO SCH ×2 (12:00→21:38)
[2019-10-05] MEDS: INSULIN LANTUS (GLARGINE) 1 /0.01ml (100units/ml) SC SCH ×2 (12:00→21:39)
[2019-10-05] MEDS: ZINC SULFATE 220mg CAP or TAB PO SCH (12:00)
[2019-10-05] MEDS: LINEZOLID 600MG/300ML 300 ML IV SCH ×2 (13:30→21:37)
[2019-10-05] MEDS ORDERED: Glucerna 1.2 Cal 1Liter BOTTLE GT SCH (19:45)
--- NOTE | 2019-10-05 20:00 | NUR ---
SHIFT OPENING NOTE RECEIVED PATIENT SEDATED AND INTUBATED, FENTANYL INFUSING AT 25 AND PROPOFOL AT 30. ETT SIZE 8, 23 AT THE LIP. VENT SETTINGS AC 18, TV 600, FI02 40% PEEP 12, NG TUBE TO RIGHT NARE CLAMPED. DYE CATH DRAINING YELLOW URINE WITH SEDIMENT TO GRAVITY. RIGHT IJ 3 LUMEN INFUSING DRIPS. ON ISOLATION FOR POSITIVE COVID. PHYSICAL ASSESSMENT COMPLETED, SEE INTERVENTIONS. WILL CLOSELY MONITOR.
[2019-10-05] MEDS: FAMOTIDINE 20 MG TAB PO SCH (21:37)
[2019-10-06] VITALS (104 sets, daily range): BP systolic 101–140; BP diastolic 60–98
[2019-10-06] MEDS: ACCU-CHEK COMFORT CURVE STRIP VI SCH ×4 (00:16→18:30)
[2019-10-06] MEDS: NOREPINEPHRINE 8 MG/250ML KIT 250 ML IV SCH (00:16)
[2019-10-06] MEDS: fentaNYL Drip 2500mCg/250mlNS 250 ML IV SCH (00:20)
[2019-10-06] MEDS: InsuLIN REG 1unit/0.01ml Soln (100units/ml) SC SCH ×4 (00:21→18:28)
[2019-10-06] MEDS: IPRATROPIUM BROM 0.5 MG/2.5ML INH SOL NEB SCH ×6 (02:47→22:39)
[2019-10-06] MEDS: ALBUTEROL SULF 2.5 MG/0.5ML(0.5%) NEB SOLN NEB SCH ×6 (02:47→22:39)
[2019-10-06] MEDS: FUROSEMIDE 20 MG/2 ML VIAL IV SCH ×2 (05:05→18:30)
--- NOTE | 2019-10-06 05:15 | NUR ---
MORNING HYGIENE CARE PARTIAL BED BATH PERFORMED WITH CHG WIPES. PARTIAL LINEN CHANGED. PATIENT DID NOT TOLERATED TURN WELL. POX FELL INTO THE 60S. PATIENT PULLED UP IN BED AND ELEVATED HEAD OF BED. SATS SLOWLY STARTED TO RISE. POX NOW 96%.
[2019-10-06 05:18] LABS: Albumin 2.5 g/dL (3.4-5.0); Calcium 7.1 mg/dL (8.5-10.1); Potassium 3.7 mmol/L (3.5-5.1)
[2019-10-06 05:20] LABS: BUN/Creatinine Ratio 20.5
[2019-10-06 05:23] LABS: Bilirubin, Total 0.8 mg/dL (0.2-1.0); Total Protein 6.7 g/dL (6.4-8.2)
[2019-10-06] MEDS: PROPOFOL 100 ML IV SCH (06:36)
--- NOTE | 2019-10-06 07:05 | NUR ---
END OF SHIFT REPORT GIVEN AND CARE ENDORSED TO JENNY MAR.
--- NOTE | 2019-10-06 09:45 | NUR ---
FAMILY: Received phone call from patient's daughter, provided update on patient condition. Informed daughter that patient remains stable, and that at this time there is no plan or order to attempt ventilator weaning. Verbalized understanding.
[2019-10-06] MEDS: cefTRIAXone 1GM/50ML D5W 50 ML IV SCH (10:00)
--- NOTE | 2019-10-06 10:00 | NUR ---
ROUNDS; Tube feeding started as per orders at 30 mL/hr. Oral care provided. Propofol remains on pause at this time patient opens eyes to name, does not follow commands. Patient does not tolerate large turns to either side, able to slightly reposition side to side without desaturations.
[2019-10-06] MEDS: DexAMETHasone SOD PHOS 4 MG/1ML SDV INJ IV SCH (10:22)
[2019-10-06] MEDS: ASCORBIC ACID 500 MG TAB PO SCH ×2 (10:23→21:59)
[2019-10-06] MEDS: ZINC SULFATE 220mg CAP or TAB PO SCH (10:23)
[2019-10-06] MEDS: AZITHROMYCIN 500MG/ 250ML 250 ML IV SCH (10:50)
--- NOTE | 2019-10-06 11:04 | NUR ---
AT BEDSIDE: Dr. Hardin at bedside, discussed medication regimen and lab values. Orders received.
[2019-10-06] MEDS: LINEZOLID 600MG/300ML 300 ML IV SCH ×2 (11:25→21:59)
[2019-10-06] MEDS: MIDAZOLAM DRIP 50 mg/50mL 50 ML IV SCH (12:15)
[2019-10-06] MEDS: INSULIN LANTUS (GLARGINE) 1 /0.01ml (100units/ml) SC SCH ×2 (12:30→21:59)
[2019-10-06 14:01] LABS: Basophils # (auto) 0 10 ^3/uL (0-0.2); Eosinophils # (auto) 0.2 10 ^3/uL (0-0.8); Hematocrit 38.4 % (41.0-53.0); Monocytes # (auto) 0.2 10 ^3/uL (0-1.3); Neutrophils # (auto) 8.8 10 ^3/uL (1.6-8.6); White Blood Cell 9.4 10^3/uL (4.4-10.8)
[2019-10-06 14:02] LABS: Basophils % (auto) 0.2 % (0.0-2.0); Eosinophils % (auto) 1.9 % (0.0-7.0); Hemoglobin 12.7 g/dL (13.5-17.5); Lymphocytes # (auto) 0.2 10 ^3/uL (0.4-5.4); Lymphocytes % (auto) 1.9 % (10.0-50.0); Mean Corpuscular Hemoglobin 27.1 pg (28.0-32.0); Mean Corpuscular Volume 82.1 fL (80.0-100.0); Monocytes % (auto) 2.3 % (0.0-12.0); Neutrophils % (auto) 93.7 % (37.0-80.0); Nucleated Red Blood Cells % 0.3 %; Platelet Count (auto) 282 10^3/uL (140-450); Red Blood Cells 4.68 10^6/uL (4.5-5.90); Red Cell Distribution Width 17.4 % (11.8-14.3)
--- NOTE | 2019-10-06 19:30 | NUR ---
OPENING SHIFT RECEIVED REPORT FROM DAY SHIFT RN. ASSUMED CARE OF PATIENT. PATIENT INTUBATED AND SEDATED WITH NO SIGNS OR SYMPTOMS OF SOB, PAIN OR DISTRESS. RIGHT INTERNAL JUGULAR TLC AND LEFT ANTECUBITAL IV - CLEAN/DRY/INTACT. PATIENT DOES NOT TOLERATE MAJOR TURNS, ABLE TO TOLERATE SLIGHT TURNS WITHOUT DESATURATIONS. DYE HUNG TO GRAVITY. SEDATION: FENTANYL - 25MCG/HR PROPOFOL - 5MCG/KG/HR BED IN LOWEST POSITION, SIDE RAILS UP X2. WILL CONTINUE TO MONITOR.
[2019-10-06] MEDS: FAMOTIDINE 20 MG TAB PO SCH (21:59)
[2019-10-07] VITALS (107 sets, daily range): BP systolic 78–140; BP diastolic 50–78
[2019-10-07] MEDS: fentaNYL Drip 2500mCg/250mlNS 250 ML IV SCH ×2 (00:52→18:49)
[2019-10-07] MEDS: NOREPINEPHRINE 8 MG/250ML KIT 250 ML IV SCH (01:30)
[2019-10-07] MEDS: ALBUTEROL SULF 2.5 MG/0.5ML(0.5%) NEB SOLN NEB SCH ×6 (02:29→22:23)
[2019-10-07] MEDS: IPRATROPIUM BROM 0.5 MG/2.5ML INH SOL NEB SCH ×6 (02:29→22:23)
[2019-10-07] MEDS: ACCU-CHEK COMFORT CURVE STRIP VI SCH ×4 (05:16→18:12)
[2019-10-07] MEDS: InsuLIN REG 1unit/0.01ml Soln (100units/ml) SC SCH ×4 (05:16→18:00)
[2019-10-07] MEDS ORDERED: POTASSIUM CHL 20MEQ/100ML 100 ML IV SCH (05:45)
[2019-10-07 05:58] LABS: Potassium 3.1 mmol/L (3.5-5.1)
[2019-10-07] MEDS: FUROSEMIDE 20 MG/2 ML VIAL IV SCH ×2 (06:04→18:13)
[2019-10-07 06:09] LABS: Albumin 2.5 g/dL (3.4-5.0); BUN/Creatinine Ratio 22.3; Bilirubin, Total 0.8 mg/dL (0.2-1.0); Total Protein 6.5 g/dL (6.4-8.2)
--- NOTE | 2019-10-07 06:27 | NUR ---
PAGED DR. ALONSO AWAITING CALL BACK
--- NOTE | 2019-10-07 06:52 | NUR ---
O2 SATURATIONS AT 89%, INCREASED FIO2 TO 60%. SPO2 NOW MAINTAINING 94%.
--- NOTE | 2019-10-07 07:37 | NUR ---
END OF SHIFT REPORT GIVEN TO DAY SHIFT RN. CARE ENDORSED.
--- NOTE | 2019-10-07 08:00 | NUR ---
INITIAL CONTACT REPORT RECEIVED FROM DEE RN, CARE ASSUMED. MALE PT OBSERVED RESTING IN BED, ORALLY INTUBATED. PT SEDATED ON DIPRIVAN AND FENTANYL GTT. PT OPENS EYES AND ATTEMPTS TO TRACK WITH TACTILE STIMULI. 99.5 RECTAL TEMPERATURE. SINUS TACHYCARDIA 110-120'S ON RESEARCH RN SPEC. PT WITH R. IJ TLC ALL PORTS PATENT EXCEPT WHITE PORT DOES PROVIDE SOME RESISTANCE WHEN FLUSHING. DRESSING CDI. RIGHT NARE NGT CONNECTED TO TUBE FEEDINGS. RESIDUAL CHECKED. TOLERATING AT THIS TIME. PLACEMENT VERIFIED. DYE TO GRAVITY DRAINING YELLOW URINE. BILATERAL LOWER EXTREMITIES SCD'S IN PLACE. SEE SKIN ASSESSMENT. BED IN LOWEST LOCKED POSITION. PILLOWS USED TO OFFLOAD BONY PROMINENCES AND BILATERAL HEELS. PATIENT ON FREQUENT TURNING SCHEDULE. PT NOT STABLE AT THIS TIME FOR BIG TURNS DUE TO DESATURATION. HOB ELEVATED 30 DEGREES. ORAL CARE PROVIDED. PT IN FULL VIEW OF RN STATION. WILL CONTINUE TO MONITOR.
--- NOTE | 2019-10-07 09:20 | NUR ---
LABS Blood obtained from right IJ TLC, sent to lab.
[2019-10-07] MEDS: cefTRIAXone 1GM/50ML D5W 50 ML IV SCH (09:42)
[2019-10-07] MEDS: PROPOFOL 100 ML IV SCH ×2 (09:42→13:53)
[2019-10-07] MEDS: POTASSIUM CHL 20MEQ/100ML 100 ML IV SCH ×2 (09:42→11:22)
[2019-10-07] MEDS: ZINC SULFATE 220mg CAP or TAB PO SCH (09:42)
--- NOTE | 2019-10-07 09:43 | NUR ---
MD VISIT Dr.Momin fernandez. aware of am labs.
--- NOTE | 2019-10-07 09:50 | NUR ---
MD VISIT Dr.Ahluwalia fernandez. MD aware of labs, IV medications, CXR, and current ventilator settings. New orders received.
--- NOTE | 2019-10-07 10:10 | NUR ---
FAMILY Spoke with daughter regarding plan of care. All questions and concerns addressed.
[2019-10-07 10:13] LABS: CRP High Sensitivity 1.81 mg/dL (< 0.3)
--- NOTE | 2019-10-07 10:30 | NUR ---
VENT CHANGES ORDERED BY DR CRAMER: DECREASED RR TO 16, INCREASED PEEP TO +14. CHANGES MADE WITHOUT INCIDENT. PLATEAU PRESSURE MEASURED [id number], MD AWARE OF PLATEAU PRESSURE, NO NEW ORDERS. WILL CONTINUE TO MONITOR.
[2019-10-07] MEDS: ASCORBIC ACID 500 MG TAB PO SCH ×2 (11:00→22:12)
[2019-10-07] MEDS: LINEZOLID 600MG/300ML 300 ML IV SCH ×2 (11:00→22:12)
[2019-10-07] MEDS: DexAMETHasone SOD PHOS 4 MG/1ML SDV INJ IV SCH (11:00)
[2019-10-07] MEDS: INSULIN LANTUS (GLARGINE) 1 /0.01ml (100units/ml) SC SCH ×2 (11:00→22:32)
--- NOTE | 2019-10-07 11:45 | NUR ---
TF Tube feeding residuals checked, only 20 cc noted. Continue at same rate.
[2019-10-07] MEDS: MIDAZOLAM DRIP 50 mg/50mL 50 ML IV SCH (12:15)
--- NOTE | 2019-10-07 12:22 | NUR ---
Nutrition Followup Notes Wt: 115.3 kg Pt in isolation room d/t COVID positive. Pt continues to be intubated sedated with propofol @ 10.377 ml/hr providing 274 kcals from fats. pt continues to be NPO. Glucerna 1.2 ordered at 30ml/hr Est energy needs 3051-3723 kcal (14-18 kcal/kg BW 115.298kg) Est protein needs 69-86g (0.6-0.75g/kg BW 115.289 kg, r/t elevated RFT, no HD) Will reassess prn. LABS: BUN 33H, Creat 1.48H, GLUC 138H, Ca 8.0L, Alb 2.5L GI: Pt has no BM reported per RN doc. BS: 12 high risk. Please refer to wound assessment report for full details. PES: 1) Altered nutrition related lab values r.t current chronic medical condition aeb elevated RFTs, hyperglycemia, severe hypoalb Recommendation: 1) Consider alternate nutrition if pt is NPO >48 hours 2) Consider Glucerna at 45 ml/hr on current rate of propofol 3) Advance diet as medically feasible to Renal Speicifc 70g if pt is not on HD 4) F/u 2-3 days
[2019-10-07] MEDS: AZITHROMYCIN 500MG/ 250ML 250 ML IV SCH (13:53)
--- NOTE | 2019-10-07 14:10 | NUR ---
VENT CHANGES VT DECREASED TO [address] CRAMER. CHANGES MADE WITHOUT INCIDENT. NOTIFIED RN OF VENT CHANGES. CURRENT VENT SETTINGS: AC, RR 16, VT 550, PEEP +14, FIO2 60%
--- NOTE | 2019-10-07 14:26 | NUR ---
SVT Patient had a short episode of svt 182. Patient then returned 120's without any intervention.
--- NOTE | 2019-10-07 16:51 | NUR ---
CARES Oral care complete. Patient pulled up in bed. Patient turned on side with assistance. Sacrum skin assessed. Skin is moist, old Optifoam removed, mild amount of serous drainage noted. Antifungal cream applied to groin area near reddened skin. Patient tolerated activity fair, oxygen saturations decreased to 88% temporarily put returned to 93%. No distress noted. Tube feeding residuals checked, 30 cc noted. Continue at same rate.
--- NOTE | 2019-10-07 19:18 | NUR ---
REPORT Report given to Rayne MAR, care endorsed.
--- NOTE | 2019-10-07 20:05 | NUR ---
OPEN NOTES ASSUMED CARE OF PATIENT. PATIENT RECEIVED SEDATED WITH IV PROPOFOL AND FENTANYL. OPEN EYES TO STIMULI, NOT RESTLESS. MITTENS AT BOTH HANDS. COUGH AND GAG NOTED. INTUBATED AND VENTILATED AC MODE, FIO2 60% SUCTIONED BLOOD ORALLY SMALL AMOUNT, ETT THICK CREAMY. ORAL CARE DONE. BED ON TURN ASSIST MODE. HR 120'S /MIN, BP STABLE. TEMP 99.5F RIGHT NARES NGT WITH GLUCERNA AT 30ML/HR. RESIDUAL CHECKED = 60MLS. HELD FEEDING FOR NOW.WILL RECHECK IN 2HOURS. DYE CATHETER DRAINING TO YELLOWISH WITH SEDIMENTS OUTPUT SCD'S AT BOTH LEGS. FULL ASSESSMENT -REFER INTERVENTIONS ON ISOLATION FOR COVID POSITIVE
[2019-10-07] MEDS: ENOXAPARIN SOD 60 MG/0.6 ML SYRINGE SC SCH (22:12)
[2019-10-07] MEDS: FAMOTIDINE 20 MG TAB PO SCH (22:12)
--- NOTE | 2019-10-07 22:20 | NUR ---
TUBE FEEDING RESIDUAL CHECKED 15MLS RE-STARTED FEEDING AT 20ML/HR WILL CONTINUE TO MONITOR
[2019-10-08] VITALS (105 sets, daily range): BP systolic 70–135; BP diastolic 39–75
[2019-10-08] MEDS: ACCU-CHEK COMFORT CURVE STRIP VI SCH ×4 (00:10→17:34)
[2019-10-08] MEDS: InsuLIN REG 1unit/0.01ml Soln (100units/ml) SC SCH ×4 (00:13→18:12)
[2019-10-08] MEDS: PROPOFOL 100 ML IV SCH ×3 (00:31→20:30)
[2019-10-08] MEDS: NOREPINEPHRINE 8 MG/250ML KIT 250 ML IV SCH (01:30)
[2019-10-08] MEDS: ALBUTEROL SULF 2.5 MG/0.5ML(0.5%) NEB SOLN NEB SCH ×5 (02:25→22:45)
[2019-10-08] MEDS: IPRATROPIUM BROM 0.5 MG/2.5ML INH SOL NEB SCH ×5 (02:25→22:45)
[2019-10-08] MEDS: fentaNYL Drip 2500mCg/250mlNS 250 ML IV SCH ×2 (04:09→16:44)
[2019-10-08 04:42] LABS: Basophils # (auto) 0 10 ^3/uL (0-0.2); Basophils % (auto) 0.2 % (0.0-2.0); Eosinophils # (auto) 0.2 10 ^3/uL (0-0.8); Eosinophils % (auto) 1.2 % (0.0-7.0); Hematocrit 39.3 % (41.0-53.0); Hemoglobin 12.9 g/dL (13.5-17.5); Lymphocytes # (auto) 0.5 10 ^3/uL (0.4-5.4); Lymphocytes % (auto) 3.1 % (10.0-50.0); Mean Corpuscular Hemoglobin 27.3 pg (28.0-32.0); Mean Corpuscular Hgb Conc. 32.9 g/dL (32.0-36.0); Mean Corpuscular Volume 83.1 fL (80.0-100.0); Monocytes # (auto) 0.3 10 ^3/uL (0-1.3); Monocytes % (auto) 2.1 % (0.0-12.0); Neutrophils # (auto) 13.7 10 ^3/uL (1.6-8.6); Neutrophils % (auto) 93.4 % (37.0-80.0); Platelet Count (auto) 352 10^3/uL (140-450); Red Blood Cells 4.73 10^6/uL (4.5-5.90); Red Cell Distribution Width 17.6 % (11.8-14.3); White Blood Cell 14.6 10^3/uL (4.4-10.8)
[2019-10-08 04:53] LABS: Albumin 2.5 g/dL (3.4-5.0); Calcium 8.6 mg/dL (8.5-10.1); Potassium 3.8 mmol/L (3.5-5.1)
[2019-10-08 04:58] LABS: Bilirubin, Total 0.7 mg/dL (0.2-1.0); Total Protein 6.7 g/dL (6.4-8.2)
--- NOTE | 2019-10-08 05:03 | NUR ---
RADIOLOGIST CALLED RE:CHEST XRAY DONE THIS AM HE SAID THAT IS WORSE THAN THE LAST XRAY REFER CHEST XRAY REPORT
[2019-10-08] MEDS: FUROSEMIDE 20 MG/2 ML VIAL IV SCH ×2 (05:16→17:34)
[2019-10-08] MEDS ORDERED: ADENOSINE 6 MG/2 ML INJ IV ONE ×2 (06:55→06:56)
--- NOTE | 2019-10-08 07:08 | NUR ---
SVT PATIENT HAD AN EPISODE OF SVT [address] MAGUIRE NOTIFIED - ORDERED IV ADENOSINE 6MG X 1 DOSE - WITH NO EFFECT ICE PACKS AROUND THE HEAD - HR DROPPED TO 126/MIN SINUS TACH BP STABLE THE WHOLE INCIDENT
--- NOTE | 2019-10-08 07:15 | NUR ---
REPORT REPORT GIVEN TO ZAID PHILLIPS INFORMED OF SVT EPISODE AND CHEST XRAY RESULTS ASKED TO INFORM PULMONOLOGY AND CARDIOLOGY MDS
--- NOTE | 2019-10-08 07:40 | NUR ---
INITIAL CONTACT REPORT RECEIVED FROM SCOTTIE MAR, CARE ASSUMED. MALE PT OBSERVED RESTING IN BED, ORALLY INTUBATED. PT SEDATED ON DIPRIVAN AND FENTANYL GTT. PT OPENS EYES AND ATTEMPTS TO TRACK WITH TACTILE STIMULI. NO DISTRESS NOTED. 100.0 RECTAL TEMPERATURE, COOLING MEASURES INITIATED. SINUS TACHYCARDIA 120'S ON PHOTOGRAPHY INSTRUCTOR. PT WITH RIGHT IJ TLC ALL PORTS PATENT EXCEPT WHITE PORT DOES PROVIDE SOME RESISTANCE WHEN FLUSHING. DRESSING CDI. RIGHT NARE NGT CONNECTED TO TUBE FEEDINGS. TOLERATING AT THIS TIME. PLACEMENT VERIFIED. DYE TO GRAVITY DRAINING YELLOW URINE. BILATERAL LOWER EXTREMITIES SCD'S IN PLACE. SEE SKIN/WOUND ASSESSMENT. BED IN LOWEST LOCKED POSITION. PILLOWS USED TO OFFLOAD BONY PROMINENCES AND BILATERAL HEELS. PATIENT ON CONTINUOUS TURNING ROTATION ON BED. PT NOT STABLE AT THIS TIME FOR BIG TURNS DUE TO DESATURATION AND EPISODE OF SVT. HOB ELEVATED 30 DEGREES. ORAL CARE PROVIDED. PT IN FULL VIEW OF RN STATION. WILL CONTINUE TO MONITOR.
--- NOTE | 2019-10-08 08:45 | NUR ---
FAMILY SPOKE WITH DAUGHTER DENNIS REGARDING STATUS AND PLAN OF CARE.
--- NOTE | 2019-10-08 09:00 | NUR ---
TEMPERATURE 99.7 RECTAL, NEW ICE PACKS APPLIED TO TRUNK AND GROIN. COOL COMPRESS PLACED ON FOREHEAD.
[2019-10-08] MEDS: ZINC SULFATE 220mg CAP or TAB PO SCH (09:12)
[2019-10-08] MEDS: ENOXAPARIN SOD 60 MG/0.6 ML SYRINGE SC SCH ×2 (09:12→22:15)
[2019-10-08] MEDS: ASCORBIC ACID 500 MG TAB PO SCH ×2 (09:12→22:15)
[2019-10-08] MEDS: cefTRIAXone 1GM/50ML D5W 50 ML IV SCH (09:12)
[2019-10-08] MEDS: DexAMETHasone SOD PHOS 4 MG/1ML SDV INJ IV SCH (09:12)
--- NOTE | 2019-10-08 09:20 | NUR ---
TF Tube feeding residuals checked, only 10 cc noted. Continue at 30 CC/HR.
[2019-10-08] MEDS: INSULIN LANTUS (GLARGINE) 1 /0.01ml (100units/ml) SC SCH ×2 (09:41→22:30)
[2019-10-08] MEDS: AZITHROMYCIN 500MG/ 250ML 250 ML IV SCH (09:43)
--- NOTE | 2019-10-08 10:00 | NUR ---
MD VISIT DR.MOMIN LOPEZ. MD AWARE OF LABS, CXR, AND VENTILATOR SETTING. NO NEW ORDERS RECEIVED AT THIS TIME. WILL CONTINUE TO MONITOR.
--- NOTE | 2019-10-08 10:30 | NUR ---
MD VISIT DR.AHLUWALIA LOPEZ. AWARE OF CHEST XRAY RESULTS AND ABG RESULTS. NEW VENT ORDERS RECEIVED. WOULD ALSO LIKE TO PLACE PATIENT ON REMDESIVIR ADMINISTRATION. AWAITING TO ROUND TO APPROVE.
--- NOTE | 2019-10-08 10:42 | NUR ---
PHARMACY APPROVED OF REMDESIVIR ADMINISTRATION. PHARMACIST NOTIFIED OF NEW ORDER.
--- NOTE | 2019-10-08 11:24 | NUR ---
CHANGED VT TO [address] Ang CRAMER'S ORDERS.
--- NOTE | 2019-10-08 11:32 | NUR ---
CONSENTS CONSENT OBTAINED FOR REMDESIVIR VIA TELEPHONE BY TWO RN FROM MARICRUZ. CONSENT PLACED IN CHART AND COPY SENT TO PHARMACY.
[2019-10-08] MEDS: MIDAZOLAM DRIP 50 mg/50mL 50 ML IV SCH (11:48)
[2019-10-08] MEDS: LINEZOLID 600MG/300ML 300 ML IV SCH ×2 (11:48→22:13)
[2019-10-08] MEDS ORDERED: REMDESIVIR 200 MG in NS 210ml LOADING DOSE ADULT IV ONE (14:00)
--- NOTE | 2019-10-08 14:00 | NUR ---
REMDESIVIR ADMINISTRATION BEGUN. PT TOLERATING INFUSION. NO ADVERSE REACTIONS NOTED AT THIS TIME. WILL CONTINUE TO MONITOR.
--- NOTE | 2019-10-08 15:08 | NUR ---
CARES RN AND RT AT BEDSIDE. PATIENT PREOXYGENATED. PT REPOSITIONED UP IN BED. RN ABLE TO POSITION PATIENT ON SIDE TO PERFORM RIGO CARE, PHOTOGRAPH OF SACRUM, AND PLACE OPTIFOAM. PARTIAL LINE CHANGE COMPLETE. PATIENT REPOSITIONED ON BED. CONTINUOUS TURN ROTATION IN PLACE. ALL EXTREMITIES OFF LOADED ON PILLOWS. ORAL CARE COMPLETE. NO DISTRESS NOTED. SEDATION INCREASED DUE TO PATIENT STACKING BREATHS AFTER REPOSITIONING. OXYGEN SATURATION 97%, ALL OTHER VITAL SIGNS REMAIN STABLE AT THIS TIME. WILL CONTINUE TO MONITOR.
--- NOTE | 2019-10-08 15:28 | NUR ---
FAMILY SPOKE WITH DAUGHTER DENNIS REGARDING STATUS. ALL QUESTIONS AND CONCERNS ADDRESSED.
--- NOTE | 2019-10-08 18:10 | NUR ---
AFIB RVR PATIENT HEART RATE INCREASED TO 160'S AND SUSTAINING. EKG PERFORMED, AFIB RVR ON TWO EKG READINGS. NOTIFIED OF EVENT. ORDERS OBTAINED FOR AMIODARONE PROTOCOL.
[2019-10-08] MEDS ORDERED: AMIODARONE HCL (50 MG/ ML) 3 ML VIAL IV ONE (18:11)
[2019-10-08] MEDS: AMIODARONE 450mg/250ml AE 250 ML IV SCH ×2 (18:15→23:32)
[2019-10-08] MEDS ORDERED: AMIODARONE HCL 150 MG in D5W 5% 100 ML IV ONE (18:15)
--- NOTE | 2019-10-08 18:50 | NUR ---
CARDIOLOGY PAGED SPOKE WITH REGARDING SCT, AFIB RVR, AND AMIODARONE PROTOCOL INITIATED. MD AWARE. ORDERS OBTAINED FOR ADENOSINE IV PUSH IF PATIENT GOES BACK INTO SVT. NO FURTHER ORDERS RECEIVED AT THIS TIME.
--- NOTE | 2019-10-08 19:13 | NUR ---
REPORT REPORT GIVEN TO SCOTTIE MAR, CARE ENDORSED.
[2019-10-08] MEDS ORDERED: ADENOSINE 6 MG/2 ML INJ IV PRN (19:45)
--- NOTE | 2019-10-08 21:31 | NUR ---
OPEN NOTES PATIENT RECEIVED SEDATED WITH IV PROPOFOL AND FENTANYL. OPEN EYES TO STIMULI, NOT RESTLESS. MITTENS AT BOTH HANDS. COUGH AND GAG NOTED. ISOLATED FOR POSITIVE COVID TEST TEMP 99.5F RECTALLY INTUBATED AND VENTILATED AC MODE, FIO2 60% , TV INCREASED TO 600MLS SUCTIONED BLOOD ORALLY SMALL AMOUNT. ORAL CARE DONE. BED ASSIST TURNING DONE. PATIENT IS NOW ON IV AMIODARONE AT 1MG/MIN. HR 100-105/MIN SINUS TACHYCARDIA. BP STABLE. WILL DECREASE IV AMIODARONE TO 0.5MG/MIN AT 0100HRS PER PROTOCOL NGT WITH TUBE FEEDING GLUCERNA AT 30ML/HR TOLERATED WELL, 5ML RESIDUAL ASPIRATED. DYE CATHETER DRAINING TO YELLOWISH OUTPUT WITH SEDIMENTS FULL ASSESSMENT DONE -REFER INTERVENTIONS WILL CONTINUE TO MONITOR
[2019-10-08] MEDS: FAMOTIDINE 20 MG TAB PO SCH (22:15)
[2019-10-09] VITALS (105 sets, daily range): BP systolic 88–134; BP diastolic 36–77
[2019-10-09] MEDS: ACCU-CHEK COMFORT CURVE STRIP VI SCH ×4 (00:27→17:57)
[2019-10-09] MEDS: InsuLIN REG 1unit/0.01ml Soln (100units/ml) SC SCH ×4 (00:33→17:58)
[2019-10-09] MEDS: AMIODARONE 450mg/250ml AE 250 ML IV SCH ×2 (01:00→11:54)
--- NOTE | 2019-10-09 01:00 | NUR ---
AMIODARONE DECREASED TO 0.5MG/MIN PER PROTOCOL
[2019-10-09] MEDS: NOREPINEPHRINE 8 MG/250ML KIT 250 ML IV SCH (01:30)
[2019-10-09] MEDS: fentaNYL Drip 2500mCg/250mlNS 250 ML IV SCH ×2 (03:48→15:55)
[2019-10-09 04:26] LABS: Basophils # (auto) 0 10 ^3/uL (0-0.2); Basophils % (auto) 0.3 % (0.0-2.0); Eosinophils # (auto) 0.1 10 ^3/uL (0-0.8); Eosinophils % (auto) 1.2 % (0.0-7.0); Hematocrit 36.1 % (41.0-53.0); Lymphocytes # (auto) 0.5 10 ^3/uL (0.4-5.4); Lymphocytes % (auto) 4.3 % (10.0-50.0); Mean Corpuscular Hemoglobin 27.5 pg (28.0-32.0); Mean Corpuscular Hgb Conc. 33.1 g/dL (32.0-36.0); Monocytes # (auto) 0.3 10 ^3/uL (0-1.3); Monocytes % (auto) 2.8 % (0.0-12.0); Neutrophils # (auto) 9.6 10 ^3/uL (1.6-8.6); Neutrophils % (auto) 91.4 % (37.0-80.0); Nucleated Red Blood Cells % 0.1 %; Platelet Count (auto) 301 10^3/uL (140-450); Red Blood Cells 4.36 10^6/uL (4.5-5.90); Red Cell Distribution Width 17.1 % (11.8-14.3); White Blood Cell 10.5 10^3/uL (4.4-10.8)
--- NOTE | 2019-10-09 04:30 | NUR ---
HYGIENE PATIENT CLEANED WITH CHG WIPES LINENS CHANGED - TOLERATED WELL REPOSITIONED ORAL CARE DONE
[2019-10-09 04:47] LABS: Albumin 2.3 g/dL (3.4-5.0); Potassium 3.2 mmol/L (3.5-5.1)
[2019-10-09 04:50] LABS: Calcium 8.7 mg/dL (8.5-10.1)
[2019-10-09 04:52] LABS: Bilirubin, Total 0.6 mg/dL (0.2-1.0); Total Protein 6.4 g/dL (6.4-8.2)
[2019-10-09] MEDS: FUROSEMIDE 20 MG/2 ML VIAL IV SCH ×2 (05:21→18:00)
--- NOTE | 2019-10-09 05:30 | NUR ---
TEMP 100.0F RECTALLY COOLING MEASURES STARTED
--- NOTE | 2019-10-09 05:45 | NUR ---
ASAEL ALEXIS FOR LAB RESULTS TALKED TO DR. PHAM OVER THE PHONE AND INFORMED OF POTASSIUM 3.2 MMOL TELEPHONE ORDER RECEIVED AND VERIFIED
[2019-10-09] MEDS: POTASSIUM CHL 20MEQ/100ML 100 ML IV SCH ×2 (06:24→08:22)
[2019-10-09] MEDS: ALBUTEROL SULF 2.5 MG/0.5ML(0.5%) NEB SOLN NEB SCH ×3 (06:50→22:45)
[2019-10-09] MEDS: IPRATROPIUM BROM 0.5 MG/2.5ML INH SOL NEB SCH ×3 (06:50→22:45)
--- NOTE | 2019-10-09 07:31 | NUR ---
REPORT REPORT GIVEN TO ZAID HACKETT
--- NOTE | 2019-10-09 07:31 | NUR ---
REPORT RECEIVED FROM ASSOCIATE PROFESSOR OF EDUCATION RN
[2019-10-09] MEDS: PROPOFOL 100 ML IV SCH (07:36)
[2019-10-09] MEDS: cefTRIAXone 1GM/50ML D5W 50 ML IV SCH (08:22)
[2019-10-09] MEDS: AZITHROMYCIN 500MG/ 250ML 250 ML IV SCH (08:59)
[2019-10-09] MEDS: ENOXAPARIN SOD 60 MG/0.6 ML SYRINGE SC SCH ×2 (10:04→22:00)
[2019-10-09] MEDS: ASCORBIC ACID 500 MG TAB PO SCH ×2 (10:04→22:00)
[2019-10-09] MEDS: INSULIN LANTUS (GLARGINE) 1 /0.01ml (100units/ml) SC SCH ×2 (10:04→22:00)
[2019-10-09] MEDS: DexAMETHasone SOD PHOS 4 MG/1ML SDV INJ IV SCH (10:05)
[2019-10-09] MEDS: ZINC SULFATE 220mg CAP or TAB PO SCH (10:05)
--- NOTE | 2019-10-09 10:41 | NUR ---
DR. CRAMER AT BEDSIDE
--- NOTE | 2019-10-09 10:42 | NUR ---
DR. MAGUIRE AT BEDSIDE
[2019-10-09] MEDS: LINEZOLID 600MG/300ML 300 ML IV SCH ×2 (11:36→22:00)
[2019-10-09] MEDS: MIDAZOLAM DRIP 50 mg/50mL 50 ML IV SCH (12:15)
--- NOTE | 2019-10-09 12:41 | NUR ---
FAMILY UPDATED ON PATIENT STATUS. ALL QUESTIONS AND CONCERNS ADDRESSED AT THIS TIME
[2019-10-09] MEDS ORDERED: REMDESIVIR 100mg in NS 230ml DAILYx4DAYS (NO VENT) IV SCH (14:00)
--- NOTE | 2019-10-09 14:12 | NUR ---
ORAL CARE PERFORMED PATIENT TOLERATED WELL
--- NOTE | 2019-10-09 16:26 | NUR ---
Nutrition Followup Notes Wt: 113.0 kg Pt is in isolation room d/t COVID positive. Pt continues to be intubated sedated with propofol @ 3.48 ml/hr providing 92 kcals from fats. Pt continues to be NPO receiving EN nutrition support Glucerna 1.2 at 30ml/hr, tolerating well. Will continue to monitor PO status, skin status, pertinent labs and weight trends. Will f/u in 2-3 days. Est energy needs 1077-2711 kcal (14-18 kcal/kg BW 115.298kg) Est protein needs 69-86g (0.6-0.75g/kg BW 115.289 kg, r/t elevated RFT, no HD) Will reassess prn. LABS: BUN 35 H, Creat 1.40 H, GFR 53 L, GLUC 137 H, Alb 2.3 L GI: Pt has no BM reported per RN doc. BS: 12 high risk. Please refer to wound assessment report for full details. PES: 1) Altered nutrition related lab values r.t current chronic medical condition aeb elevated RFTs, hyperglycemia, severe hypoalb Recommendation: 1) Consider alternate nutrition if pt is NPO >48 hours ([id number]) 2) Consider Glucerna at 45 ml/hr on current rate of propofol 3) Advance diet as medically feasible to Renal Specific 70g if pt is not on HD 4) F/u 2-3 days
--- NOTE | 2019-10-09 16:34 | NUR ---
UNABLE TO TURN PATIENT AT THIS TIME PATIENT POSITIONED TO RIGHT SIDE 02 SATURATIONS DROPPED INTO 80'S PATIENT PLACED BACK IN PREVIOUS POSITION
[2019-10-09] MEDS: REMDESIVIR 100mg in NS 230ml DAILYx4DAYS (NO VENT) IV SCH (17:23)
--- NOTE | 2019-10-09 18:30 | NUR ---
Respiratory note: RECEIVED PT ON VENT V5. VENT CHECK BEING DONE BY DOOR DUE TO COVID-19, PRECAUTIONS. VENT IS SEEN TO BE CONNECTED TO RED OUTLET AND O2 SOURCE. AMBU BAG AND MASK IS VISIBLE AND AT BEDSIDE. CURRENT BODY TEMP READS 99.6F. WILL CONTINUE TO MONITOR.
--- NOTE | 2019-10-09 19:42 | NUR ---
ADMITTED ON 09/30/2019 FROM AN URGENT CARE. INTUBATED IN OUR ER. +COVID, - INFLUENZA AND - STREP. LATEST BLOOD CULTURE NEGATIVE.LAST RESPIRATORY CULTURE KENDRICK. HYPOKALEMIC TODAY. POTASSIUM REPLACED. ECHOCARDIOGRAM PENDING. FIRST DAY OF 4 ON REMDESIVIR. ETT TO VENTILATOR. SEDATION: DIPRIVAN AND FENTANYL. PREVIOUS SVT AND IS ON AN AMIODARONE DRIP AT .5. NUTRITION: GLUCERNA AT 30CC/HR. SKIN ISSUES: GLUTEAL CLEFT RED. RIGHT EAR DTI. RIGHT THUMB BLISTER. SKIN TEAR ON RIGHT ARM X 2 AND LEFT ARM X 1. ACCUCHECK Q 6.
--- NOTE | 2019-10-09 20:00 | NUR ---
USING BED TO TURN PATIENT. ADDED AIR TO THE ETT CUFF. EMPTIED WATER FROM THE VENTILATOR TUBING. ORAL CARE DONE. PATIENT OPENED EYES AND LOOKED AT ME. GOOD URINE OUTPUT. 15CC RESIDUAL FROM THE TUBE FEEDING. PULSES WEAK. BILATERAL MITTENS ON. GENERALIZED EDEMA.
[2019-10-09] MEDS: FAMOTIDINE 20 MG TAB PO SCH (22:00)
--- NOTE | 2019-10-09 22:45 | NUR ---
Respiratory note: AT BEDSIDE FOR ROUTINE VENT CHECK. MED NEB TX GIVEN VIA AEROGEN. NO ADVERSE REACTION NOTED. CURRENT BODY TEMP READS 99.3F. WILL CONTINUE TO MONITOR.
[2019-10-10] VITALS (102 sets, daily range): BP systolic 76–129; BP diastolic 26–76
--- NOTE | 2019-10-10 | NUR ---
USING BED TO TURN PATIENT. TOLERATING THE TURNING. NSR WITHOUT ECTOPY. SBP STABLE. NO FEVERS. ABDOMEN ROUND SOFT, LARGE. ADEQUATE URINE OUTPUT. LEFT ARM IS WEEPING A LARGE AMOUNT OF SEROUS FLUID ONTO A PAD. NGT RESIDUAL 20CC. SUCTIONED ETT FOR A SMALL AMOUNT OF CREAMY SECRETIONS. ORAL CARE DONE. SMALL AMOUNT OF BLOOD FROM THE MOUTH. FILM OF BLOOD ON LIP. MOISTURIZER TO LIP. GENERALIZED EDEMA. SEDATION IS HOLDING HIM IN A GOOD PLACE WHERE HE IS ABLE TO WAKE UP , OPEN HIS EYES AND THEN PEACEFULLY FALL BACK ASLEEP.
[2019-10-10] MEDS: NOREPINEPHRINE 8 MG/250ML KIT 250 ML IV SCH (01:30)
--- NOTE | 2019-10-10 02:00 | NUR ---
TURNED THE PATIENT TO HIS LEFT . ONLY LASTED ABOUT 30 MINUTES AND THEN DESATURATED. TURNED HIM BACK TO SUPINE POSITION AND NOW HIS SATURATION IS 97%. NSR WITHOUT ECTOPY. SBP STABLE. ADEQUATE URINE OUTPUT. NGT RESIDUAL 30 CC. CONTINUING THE GLUCERNA AT 25CC/HR. ORAL CARE DONE. HAS A SORE ON THE BOTTOM LIP. HAVE BEEN PUTTING MOISTURIZER ON THE LIP AND I HAVE BEEN ABLE TO CLEAN THE BLOOD FROM THE LIPS COMPLETELY NOW. PATIENT WAKES UP. OPENS EYES . LOOKS AT YOU. NEVER ATTEMPTS TO MOVE LIPS TO COMMUNICATE WITH US. NEVER MOVES EXTREMITIES.
[2019-10-10] MEDS: AMIODARONE 450mg/250ml AE 250 ML IV SCH ×2 (02:13→06:17)
[2019-10-10] MEDS: fentaNYL Drip 2500mCg/250mlNS 250 ML IV SCH ×2 (02:13→15:21)
--- NOTE | 2019-10-10 04:00 | NUR ---
AM LABS DRAWN
[2019-10-10 04:55] LABS: Calcium 8.7 mg/dL (8.5-10.1); Potassium 3.2 mmol/L (3.5-5.1)
[2019-10-10 04:57] LABS: BUN/Creatinine Ratio 26.3
[2019-10-10] MEDS: ACCU-CHEK COMFORT CURVE STRIP VI SCH ×4 (06:00→18:00)
[2019-10-10] MEDS: FUROSEMIDE 20 MG/2 ML VIAL IV SCH ×2 (06:00→18:03)
[2019-10-10] MEDS: InsuLIN REG 1unit/0.01ml Soln (100units/ml) SC SCH ×4 (06:00→18:10)
[2019-10-10] MEDS: ALBUTEROL SULF 2.5 MG/0.5ML(0.5%) NEB SOLN NEB SCH ×3 (06:27→22:19)
[2019-10-10] MEDS: IPRATROPIUM BROM 0.5 MG/2.5ML INH SOL NEB SCH ×3 (06:27→22:19)
--- NOTE | 2019-10-10 06:58 | NUR ---
DURING BATH I LAID HIM FLAT. HE DESATURATED TO 88% AND IT NEVER IMPROVED WITH ME SITTING HIM UP, SUCTIONING. RT IN ROOM. SHE DID THE SAME THING, LAVAGE, SUCTION AND HER DECISION WAS TO INCREASE THE FIO2 TO 60%. THE SAT IS NOW 93%
--- NOTE | 2019-10-10 07:39 | NUR ---
LEFT A MESSAGE TO DR. YANES'S WITH [employer] TO CALL BACK FOR ABNORMAL LAB RESULTS.
[2019-10-10] MEDS: POTASSIUM CHL 20MEQ/100ML 100 ML IV SCH ×2 (08:18→10:22)
[2019-10-10] MEDS: cefTRIAXone 1GM/50ML D5W 50 ML IV SCH (08:46)
--- NOTE | 2019-10-10 09:30 | NUR ---
AM ASSESSMENT COMPLETED PT REMAINS ON COVID 19 ISOLATION REMAINS INTUBATED ON FENTANYL AT 200 MCG/HR AND ON PROPOFOL AT 10 MCG/KG/MIN PT ABLE TO TRACK WITH EYES AND ANSWERS YES AND NO QUESTIONS BY NODDING HIS HEAD. LS CTA IN UPPER LOBES AND DIMINISHED ON THE BASES, PT IS ON 60 % FIO2, SUCTIONED THICK STEINBERG ETT SECRETIONS AND COPIOUS AMOUNTS OF THIN BLOODY ORAL SECRETIONS, WITH BLOOD CLOTS. PT HAS MULTIPLE SMALL ORAL CAVITY SORES FROM ETT. HE ALSO HAS A LARGE BLISTER TO RT HAND AND MULTILEX SKIN TEARS TOB TO HIS UPPER EXTREMITIES. COCCYX WILL BE INSPECTED WITH SPORTS MANAGEMENT PROFESSOR. PICTURES SEEN. PT IS VERY SENSITIVE TO ACTIVITY, HIS OXYGENATION DROPS WHEN HE GETS REPOSITIONED PER CREDIT UNION TELLER REPORT THAT I RECEIVE. ALL ALARMS VERIFIED. ORAL CARE RENDERED, EDUCATED ON POC, PT NODDED HEAD ON AGREEMENT.
[2019-10-10] MEDS: INSULIN LANTUS (GLARGINE) 1 /0.01ml (100units/ml) SC SCH ×2 (10:00→22:00)
--- NOTE | 2019-10-10 10:00 | NUR ---
DR. YANES ROUNDING ON PT. NO NEW ORDERS RECEIVED. UPDATED ON CURRENT GTTS.
[2019-10-10] MEDS: AZITHROMYCIN 500MG/ 250ML 250 ML IV SCH (10:23)
[2019-10-10] MEDS: ZINC SULFATE 220mg CAP or TAB PO SCH (10:23)
[2019-10-10] MEDS: DexAMETHasone SOD PHOS 4 MG/1ML SDV INJ IV SCH (10:23)
[2019-10-10] MEDS: ASCORBIC ACID 500 MG TAB PO SCH ×2 (10:24→22:25)
[2019-10-10] MEDS: ENOXAPARIN SOD 60 MG/0.6 ML SYRINGE SC SCH ×2 (10:24→22:25)
--- NOTE | 2019-10-10 11:00 | NUR ---
ACTIVITY INTOLERANCE PT SPO2 DROPPED TO THE LOW 82 % AFTER BEING REPOSITION FOR PICTURE TAKING FOR WOUND CARE. PT TURNED PURPLE AND IT TOOK HIM ALMOST ONE HOUR TO RECOVER. I SUCTIONED THICK STEINBERG ORAL SECRETIONS SBP DROPPED. LEVOPHED HAD TO BE STARTED AT 2 MCG/MIN. PT HAD TO BI GIVE 100% FIO2 INTERMITTENTLY FOR 2 MIN FOR ALMOST AN HOUR, RT HAD TO GIVE PT A BREATHING TREATMENT TO HELP PT RECOVER FROM COUGHING SPELLS. PT'S FIO2 HAD TO BE INCREASED AGAIN FROM 55% WHICH WAS PREVIOUSLY ORDERED BY DR. Ang BEEBE BACK UP TO 65% FIO2.
--- NOTE | 2019-10-10 11:00 | NUR ---
WOUND CARE NOTE: IN TO SEE PATIENT AT THIS TIME FOR SKIN/WOUND MONITORING. PATIENT CONTINUES TO BE INTUBATED, LIGHTLY SEDATED, COVID POSITIVE. PATIENT HAS DEVELOPED MULTIPLE SKIN INTEGRITY ISSUES OVER THE LAST WEEK. HE IS NOTED TO HAVE GENERALIZED EDEMA. PATIENT HAS DEVELOPED SMALL SKIN TEARS TO THE RIGHT AND LEFT FOREARM/HANDS. PATIENT'S BILATERAL HANDS/FOREARM IS VERY EDEMATOUS, LEFT FOREARM HAS BEEN WEEPING. SKIN TEARS ARE SMALL, PARTIAL THICKNESS. APPLIED THERAHONE, OPTIFOAM GENTLE DRESSINGS TO THESE OPEN WOUNDS. RIGHT DORSAL HAND AT # 2 FINGER HAS A LONG, THIN SERUM FILLED BLISTER OVER ECCHYMOSIS. LEFT OPEN TO AIR, WOUND REMAINS INTACT. RIGHT EAR HAS A DTI WITH BLISTER NOTED. PATIENT HAS BEEN FAVORING TURNING HIS HEAD TO THE RIGHT. APPLIED OPTIFOAM GENTLE DRESSING TO COVER AND PROTECT. PATIENT HAS DEVELOPED WHAT APPEARS TO BE ABRASIONS OR SCABBED BLISTERS TO HIS RIGHT/LEFT LOWER LIP. HE WOULD BENEFIT FROM DAILY BACITRACIN OINTMENT TO THE AREA. PATIENT ALSO HAS DEVELOPED A LINEAR SKIN TEAR TO THE INTRAGLUTEAL FOLD/SACRUM. WOUND IS PARTIAL THICKNESS. APPLIED ZGUARD, OPTIFOAM GENTLE SACRAL DRESSING TO WOUND. ALL WOUNDS PHOTOGRAPHED AT THIS TIME FOR REFERENCE. ALL WOUND STATS CAN BE FOUND WITHIN WOUND ASSESSMENT, LINKED TO THIS NOTE. RECOMMEND: FREQUENT TURN SCHEDULE Q 2 HOURS, PRN CONDITION PERMITS, WITH PRESSURE REDISTRIBUTION USING PILLOWS/WEDGES, DAILY/PRN DRESSING CHANGE WITH ZGUARD/OPTIFOAM GENTLE SACRAL DRESSING TO SACRAL WOUND, EOD/PRN DRESSING CHANGES TO OPEN WOUNDS ON BILATERAL UPPER EXTREMITIES, OPTIFOAM GENTLE DRESSING TO COVER AND PROTECT RIGHT EAR WOUND, BID BACITRACIN TO RIGHT LOWER LIP, CONTINUATION WITH ALL OTHER WOUND CARE ORDERS PREVIOUSLY PRESCRIBED BY MD. WOUND CARE TEAM WILL CONTINUE TO MONITOR. Addendum: 10/10/19 at 1604 by Arin Waters RN Amended: Links added.
--- NOTE | 2019-10-10 11:15 | NUR ---
FIO2 TITRATED TO 55% PER DR. CRAMER.
[2019-10-10] MEDS: PROPOFOL 100 ML IV SCH ×2 (12:03→22:26)
--- NOTE | 2019-10-10 12:10 | NUR ---
FIO2 INCREASED TO 65% DUE TO PT'S DESATURATION TO 80'S. RN BREE MADE AWARE
[2019-10-10] MEDS: MIDAZOLAM DRIP 50 mg/50mL 50 ML IV SCH (12:15)
[2019-10-10] MEDS: LINEZOLID 600MG/300ML 300 ML IV SCH ×2 (13:08→22:25)
--- NOTE | 2019-10-10 16:32 | NUR ---
ETT ADVANCED TO 26 PER XRAY. ZAID GIRON MADE AWARE
[2019-10-10] MEDS: REMDESIVIR 100mg in NS 230ml DAILYx4DAYS (NO VENT) IV SCH (18:02)
--- NOTE | 2019-10-10 19:31 | NUR ---
ADMITTED FROM AN URGENT CARE. DYSPNEA FOR 4 DAYS. OFFICIAL MD DIAGNOSIS SEPSIS, NSTEMI, + COVID. NEGATIVE INFLUENZA, NEGATIVE STREP. NEGATIVE MRSA. DIABETES BEING CONTROLLED WITH LANTUS AND Q 6 HOUR ACCUCHECKS THAT FOLLOW A MODERATE SCALE. CONTINUES ON ANTIBIOTICS. HAS GENERALIZED PITTING EDEMA. RIGHT THUMB BLISTER. LEFT ARM AC PERIPHERAL IV IS SALINE LOCKED AND STILL USEFUL. LEFT FOREARM SKIN TEAR X 2 DRAINING SEROUS FLUID. USING THERA HONEY ON WOUNDS. HAS A RIGHT EAR DTI AND BLISTER. USING THERAHONEY ON ALL WOUNDS AND COVERING WITH A FOAM DRESSING. INTERGLUTEAL SKIN TEAR. OPTIFOAM ON. PT REQUEST IN. ECHOCARDIOGRAM IS STILL PENDING. POTASSIUM LEVEL DUE AT 1999.
--- NOTE | 2019-10-10 19:37 | NUR ---
RT NOTE RECEIVED PT INTUBATED AND ON VENT V5 ON STATED SETTINGS. VENT IS PLUGGED TO RED OUTLET. ALARMS ARE ON AND AUDIBLE TO NURSING. AMBU BAG AT BEDSIDE AND CONNECTED TO O2 SOURCE. 8.0 ETT SECURED WITH ANCHORFAST AT 26 CM TO THE ORAL CENTER.NOTED ORAL BREAKDOWN ON BOTH CORNERS OF MOUTH. RN KAREN NOTIFIED. BS ARE CLEAR/DIMINISHED. PT WAS SUCTIONED FOR SMALL BLOOD TINGED RETURN FROM ETT AND ORALLY. CONT ORDERED. POX 97% Addendum: 10/10/19 at 1951 by Nguyen López RT Amended: Links added.
--- NOTE | 2019-10-10 20:00 | NUR ---
REPOSITIONED TO BACK. ORAL CARE DONE. BOTH SORES ON BOTTOM LIP BLED. HELD PRESSURE. RIGHT HAND SKIN TEAR : FOAM DRESSING SOAKED WITH SEROUS FLUID. LEFT FOREARM: 2 SKIN TEARS, BOTH DRESSINGS SOAKED WITH SEROUS FLUID. ALL WOUNDS CLEANED WITH WOUND CLEANSER. DRIED. THERAHONEY PATCH PLACED OVER WOUNDS. NEW FOAM DRESSINGS APPLIED TO SITES. RIGHT LATERAL HAND IS AN ABRASION/PARTIALLY DARK SCABBED AREA. THERAHONEY PATCH APPLIED TO SITE , FOAM DRESSING APPLIED. LUNGS CLEAR. BLOOD TINGED ETT SECRETIONS. NGT RESIDUAL 30CC. GLUCERNA AT 30CC/HR. NO STOOLS. RIGO AREA REDNESS. CREAM APPLIED TO REDNESS. RECTAL TEMP PROBE IN AND HOOKED TO MONITOR. GENERALIZED PITTING EDEMA. ALL PULSES WEAK AND BARELY PALPABLE. HEELS OFF BED. NSR WITHOUT ECTOPY. SBP STABLE OFF LEVOPHED.
--- NOTE | 2019-10-10 20:27 | NUR ---
RT NOTE ROUTINE VENT CHECK DONE. PT INTUBATED AND ON VENT V5 ON STATED SETTINGS WITH HEATED WIRE CIRCUIT. VENT IS PLUGGED TO RED OUTLET. ALARMS ARE ON AND AUDIBLE TO NURSING. AMBU BAG AT BEDSIDE AND CONNECTED TO O2 SOURCE. 8.0 ETT SECURED WITH ANCHORFAST AT 26 CM TO THE ORAL CENTER.NOTED ORAL BREAKDOWN ON BOTH CORNERS OF MOUTH. RN KAREN AWARE.WATER LEVEL ADEQUATE. CONT ORDERED. POX 97% Addendum: 10/10/19 at 2031 by Nguyen López RT Amended: Links added.
--- NOTE | 2019-10-10 22:00 | NUR ---
RIGHT THUMB HAS A THIN LINEAR BLOOD FILLED BLISTER THAT IS INTACT. REPOSITIONED. NSR WITHOUT ECTOPY. GLUCERNA CONTINUES AT 30CC/HR.
[2019-10-10] MEDS: FAMOTIDINE 20 MG TAB PO SCH (22:25)
--- NOTE | 2019-10-10 22:25 | NUR ---
RT NOTE ROUTINE VENT CHECK DONE. PT INTUBATED AND ON VENT V5 ON STATED SETTINGS WITH HEATED WIRE CIRCUIT. VENT IS PLUGGED TO RED OUTLET. ALARMS ARE ON AND AUDIBLE TO NURSING. AMBU BAG AT BEDSIDE AND CONNECTED TO O2 SOURCE. 8.0 ETT SECURED WITH ANCHORFAST AT 26 CM TO THE ORAL CENTER.NOTED ORAL BREAKDOWN ON BOTH CORNERS OF MOUTH. RN KAREN AWARE. WATER LEVEL ADEQUATE. BS ARE CLEAR/DIM. HHN GIVEN INLINE WITH 5.0 MG ALBUTEROL AND 0.5 MG ATROVENT VIA AEROGEN WITHOUT ADVERSE REACTION. PT IS AWAKE AND ABLE TO ANSWER YES OR NO QUESTIONS. PT DOES NOT WANT SUCTION AT THIS TIME. CONT ORDERED. POX 98%, PT TEMP 99.3 Addendum: 10/10/19 at 2236 by Nguyen López RT Amended: Links added.
--- NOTE | 2019-10-10 23:30 | NUR ---
DROPPED BLOOD PRESSURE AFTER ONE HOUR OF TURNING. DROPPED THE O2 SATURATION TO 90. PLACED ON BACK AND IT DID NOT IMPROVE . LEVOPHED STARTED AT 2353. OFF AT 0037. NO FEVER ISSUES. ORAL CARE DONE. SMALL AMOUNT OF BLOOD ORALLY AND THROUGH THE ETT. NSR WITHOUT ECTOPY. ABDOMEN SOFT. ALL THE DRESSINGS : WOUNDS ARE WEEPING SEROUS FLUID SLOWLY. GENERALIZED EDEMA PERSISTS. ALL PULSES WEAK. DIPRIVAN AND FENTANYL REMAIN THE SEDATION CHOICE. URINE OUTPUT ADEQUATE PER DYE. PROPOFOL TUBING CHANGED.
[2019-10-11] VITALS (103 sets, daily range): BP systolic 83–153; BP diastolic 37–93
--- NOTE | 2019-10-11 | NUR ---
AWAKE. DEVYN. RESISTS ORAL CARE.NSR WITHOUT ECTOPY. ADEQUATE URINE OUTPUT.
--- NOTE | 2019-10-11 00:17 | NUR ---
RT NOTE ROUTINE VENT CHECK DONE. PT INTUBATED AND ON VENT V5 ON STATED SETTINGS WITH HEATED WIRE CIRCUIT. VENT IS PLUGGED TO RED OUTLET. ALARMS ARE ON AND AUDIBLE TO NURSING. AMBU BAG AT BEDSIDE AND CONNECTED TO O2 SOURCE. 8.0 ETT SECURED WITH ANCHORFAST AT 26 CM TO THE ORAL CENTER.NOTED ORAL BREAKDOWN ON BOTH CORNERS OF MOUTH. RN KAREN AWARE. WATER LEVEL ADEQUATE. CONT ORDERED. POX 96%, PT TEMP 99.0 Addendum: 10/11/19 at 0018 by Nguyen López RT Amended: Links added.
[2019-10-11] MEDS: InsuLIN REG 1unit/0.01ml Soln (100units/ml) SC SCH ×4 (00:28→18:59)
[2019-10-11] MEDS: ACCU-CHEK COMFORT CURVE STRIP VI SCH ×4 (00:28→18:45)
--- NOTE | 2019-10-11 02:47 | NUR ---
RT NOTE ROUTINE VENT CHECK DONE. PT INTUBATED AND ON VENT V5 ON STATED SETTINGS WITH HEATED WIRE CIRCUIT. VENT IS PLUGGED TO RED OUTLET. ALARMS ARE ON AND AUDIBLE TO NURSING. AMBU BAG AT BEDSIDE AND CONNECTED TO O2 SOURCE. 8.0 ETT SECURED WITH ANCHORFAST AT 26 CM TO THE ORAL CENTER.NOTED ORAL BREAKDOWN ON BOTH CORNERS OF MOUTH. RN KAREN AWARE. WATER LEVEL ADEQUATE. INLINE SUCTION CHANGED WITHOUT INCIDENT. CONT ORDERED. POX 92%, PT TEMP 99.0 Addendum: 10/11/19 at 0247 by Nguyen López RT Amended: Links added.
--- NOTE | 2019-10-11 03:17 | NUR ---
UNABLE TO BE TURNED. HE DESATURATES EACH TIME. AND HE DROPS HIS BLOOD PRESSURE.
--- NOTE | 2019-10-11 04:17 | NUR ---
RT NOTE ROUTINE VENT CHECK DONE. PT INTUBATED AND ON VENT V5 ON STATED SETTINGS WITH HEATED WIRE CIRCUIT. VENT IS PLUGGED TO RED OUTLET. ALARMS ARE ON AND AUDIBLE TO NURSING. AMBU BAG AT BEDSIDE AND CONNECTED TO O2 SOURCE. 8.0 ETT SECURED WITH ANCHORFAST AT 26 CM TO THE ORAL CENTER.NOTED ORAL BREAKDOWN ON BOTH CORNERS OF MOUTH. RN KAREN AWARE. WATER LEVEL ADEQUATE. CONT ORDERED. POX 92%, PT TEMP 99.0 Addendum: 10/11/19 at 0418 by Nguyen López RT Amended: Links added.
[2019-10-11 04:55] LABS: Basophils # (auto) 0 10 ^3/uL (0-0.2); Basophils % (auto) 0.6 % (0.0-2.0); Eosinophils # (auto) 0.1 10 ^3/uL (0-0.8); Eosinophils % (auto) 1.8 % (0.0-7.0); Hematocrit 34.3 % (41.0-53.0); Hemoglobin 11.2 g/dL (13.5-17.5); Lymphocytes # (auto) 0.5 10 ^3/uL (0.4-5.4); Lymphocytes % (auto) 9.1 % (10.0-50.0); Mean Corpuscular Hemoglobin 27.5 pg (28.0-32.0); Mean Corpuscular Hgb Conc. 32.8 g/dL (32.0-36.0); Mean Corpuscular Volume 83.8 fL (80.0-100.0); Monocytes # (auto) 0.4 10 ^3/uL (0-1.3); Monocytes % (auto) 6.8 % (0.0-12.0); Neutrophils # (auto) 4.3 10 ^3/uL (1.6-8.6); Neutrophils % (auto) 81.7 % (37.0-80.0); Nucleated Red Blood Cells % 0.1 %; Platelet Count (auto) 280 10^3/uL (140-450); Red Blood Cells 4.09 10^6/uL (4.5-5.90); Red Cell Distribution Width 16.8 % (11.8-14.3); White Blood Cell 5.2 10^3/uL (4.4-10.8)
--- NOTE | 2019-10-11 05:00 | NUR ---
TRIED TURNING THE PATIENT TO THE RIGHT AND WITHIN MINUTES THE BP DROPPED. TURNED THE PATIENT BACK AND INCREASED THE PROPOFOL. SBP DROPPED. LEVOPHED STARTED. PATIENT IS SLOWLY REGAINING THE O2 SATURATION.
[2019-10-11 05:13] LABS: BUN/Creatinine Ratio 23.7; Calcium 8.7 mg/dL (8.5-10.1); Potassium 3.1 mmol/L (3.5-5.1)
[2019-10-11] MEDS: fentaNYL Drip 2500mCg/250mlNS 250 ML IV SCH ×2 (05:30→18:26)
[2019-10-11] MEDS: PROPOFOL 100 ML IV SCH ×3 (05:30→19:30)
--- NOTE | 2019-10-11 06:00 | NUR ---
CENTRAL LINE DRESSING CHANGE. NO REDNESS, SWELLING OR DRNG AT SITE. NSR RATE OF 79, NOW THAT HE IS MORE QUIET. SBP HAS INCREASED. LEVOPHED OFF.
[2019-10-11] MEDS: FUROSEMIDE 20 MG/2 ML VIAL IV SCH ×2 (06:16→18:59)
[2019-10-11] MEDS: ALBUTEROL SULF 2.5 MG/0.5ML(0.5%) NEB SOLN NEB SCH ×3 (07:03→22:34)
[2019-10-11] MEDS: IPRATROPIUM BROM 0.5 MG/2.5ML INH SOL NEB SCH ×3 (07:03→22:34)
--- NOTE | 2019-10-11 08:50 | NUR ---
DR. YANES CALLED TO GET AN UPDATED ON PT'S CONDITION I UPDATED HIM ON PT'S HIGH O2 DEMAND, NO RESERVES, DESATURATION WITH TURNING AND TAKING ABOUT ONE HOUR TO RECOVER AFTER TURNING. NOT TOLERATING BEING TURNED. LOW K 3.1, ADDED A MG LEVEL TO AM LABS. REVIEWED DATE OF INTUBATION.
[2019-10-11] MEDS: cefTRIAXone 1GM/50ML D5W 50 ML IV SCH (09:08)
[2019-10-11] MEDS: AMIODARONE 450mg/250ml AE 250 ML IV SCH (09:08)
--- NOTE | 2019-10-11 09:20 | NUR ---
DR. THAKKAR COVERING FOR DR. CONCEPCIÓN ALEXIS WANTS PT COMPLETELY SEDATED, TV AT 500 AND FI02 DECREASED TO 40%. HE ALSO WANTS DAILY CHEST X-RAY. STARTED INCREASING SEDATION.
[2019-10-11] MEDS: POTASSIUM CHL 20MEQ/100ML 100 ML IV SCH ×3 (09:44→14:06)
[2019-10-11] MEDS: AZITHROMYCIN 500MG/ 250ML 250 ML IV SCH (09:44)
--- NOTE | 2019-10-11 10:00 | NUR ---
AM ASSESSMENT COMPLETED REMAINS ON COVID 19 ISOLATION WITH [facility]. PT STILL REQUIRING HIGH OXYGENATION D/T LOW RESERVES WITH INCREASED ACTIVITY. PT SPO2 DROPS TO THE LOW 80'S WHEN REPOSITIONED OR SOMETIMES WHEN SUCTIONED BOTH THROUGH ETT AND ORALLY. PT HAS MULTIPLE LESIONS ON HIS LIP FROM ETT WHICH ARE BEING TEATED WITH BACITRACIN OINTMENT. ORAL CARE PROVIDED AT THIS TIME. PT CURRENTLY ABLE TO FOLLOW COMMANDS D/T LOW SEDATION, SEDATION IS BEING TITRATED UP TO KEEP PT MORE COMFORTABLE AND INCREASE ACTIVITY ALTHOUGH PRESSORS WILL HAVE TO BE STARTED FOR HYPOTENSION. SEE IV FLOW SHEET FOR TITRATION OF BOTH SEDATION AND PRESSORS. PT IS ALSO ON DIURETICS BID WHICH ALSO ATTRIBUTE TO PT'S HYPOTENSION. PT TOLERATING TUBE FEEDINGS RESIDUAL IS ONLY 30 ML OF SEMIDIGESTED TF. ALL MONITOR ALARMS VERIFIED.
--- NOTE | 2019-10-11 10:20 | NUR ---
DECREASED OXYGENATION PT DID NOT TOLERATE DECREASED FI02 OF 40%, SPO2 DROPPED TO 82%, DR. THAKKAR NOTIFIED HE ASKED TO PLACE PT ON 100% FIO2, WHICH I DID IMMEDIATELY RT AYE NOTIFIED OF EVENT. UNABLE TO REPOSITION PT. PT WAS STARTED ON LEVOPHED GTT TO COMPENSATE FOR INCREASED SEDATION. DR. THAKKAR WANTS PT TO BE COMPLETELY SEDATED. PT BECOMES MORE SEDATED B/P BECOMES LOWER. REFER TO IV FLOW SHEET.
[2019-10-11] MEDS: DexAMETHasone SOD PHOS 4 MG/1ML SDV INJ IV SCH (10:45)
[2019-10-11] MEDS: NOREPINEPHRINE 8 MG/250ML KIT 250 ML IV SCH ×2 (10:45→18:28)
[2019-10-11] MEDS: ENOXAPARIN SOD 60 MG/0.6 ML SYRINGE SC SCH ×2 (10:46→22:00)
[2019-10-11] MEDS: ASCORBIC ACID 500 MG TAB PO SCH ×2 (10:46→22:00)
[2019-10-11] MEDS: ZINC SULFATE 220mg CAP or TAB PO SCH (10:46)
[2019-10-11] MEDS: INSULIN LANTUS (GLARGINE) 1 /0.01ml (100units/ml) SC SCH ×2 (10:47→22:00)
[2019-10-11] MEDS: LINEZOLID 600MG/300ML 300 ML IV SCH ×2 (11:44→22:00)
[2019-10-11] MEDS: MIDAZOLAM DRIP 50 mg/50mL 50 ML IV SCH (12:15)
--- NOTE | 2019-10-11 13:30 | NUR ---
NUTRITION STILL TOLERATING TF , RESIDUAL 60 ML OF SEMI DIGESTED TF.
[2019-10-11] MEDS: BACITRACIN TOP OINT 1 UD PKG TOP SCH (14:06)
--- NOTE | 2019-10-11 14:32 | NUR ---
Nutrition Followup Notes Wt: 113.0 kg Pt is in isolation room d/t COVID positive. Pt continues to be intubated sedated with propofol @ 6.918 ml/hr providing 182 kcals from fats. Pt continues to be NPO receiving EN nutrition support Glucerna 1.2 at 30ml/hr, tolerating well. Will continue to monitor PO status, skin status, pertinent labs and weight trends. Will f/u in 2-3 days. Est energy needs 4891-5304 kcal (14-18 kcal/kg BW 115.298kg) , Est protein needs 69-86g (0.6-0.75g/kg BW 115.289 kg, r/t elevated RFT, no HD). Will reassess prn. LABS: BUN 28 H, GLUC 130 H, Alb 2.3 L, CO2 33 H GI: Pt had 1 bm 10/08 per RN doc. BS: 15 mod risk. Please refer to wound assessment report for full details. PES: 1) Altered nutrition related lab values r.t current chronic medical condition aeb elevated RFTs, hyperglycemia, severe hypoalb Recommendation: 1) Consider Glucerna at 45 ml/hr on current rate of propofol 2) Advance diet as medically feasible to Renal Specific 70g if pt is not on HD 4) F/u 2-3 days
[2019-10-11] MEDS: REMDESIVIR 100mg in NS 230ml DAILYx4DAYS (NO VENT) IV SCH (18:13)
--- NOTE | 2019-10-11 19:30 | NUR ---
ABLE TO TITRATE DOWN FIO2 BACK TO 60 % , PT STILL HAS HIGH OXYGEN CONSUMPTION WITH INCREASED ACTIVITY OR WHEN SUCTIONING. REPORT GIVEN TO BELT SEWER RN.
--- NOTE | 2019-10-11 19:46 | NUR ---
ADMITTED WITH THE MULTIPLE DIAGNOSIS OF PNEUMONIA, COVID +, NEL, HYPOKALEMIA. CXR TODAY STATED THE INFILTRATES HAVE NCREASED. DR THAKKAR WANTS HIM MORE SEDATED. FENTANYL 200 MCG, PROPOFOL 30 MCG. AMIODARONE DRIP: CONTINUES A .5. WITH THE INCREASE IN SEDATION, LEVOPHED WAS ADDED. NSR IN THE 60S. October WILL BE HIS 14TH DAY OF INTUBATION. DIFFICULTY WITH RESPIRATORY DISTRESS AND DESATURATION WITH TURNING. NUTRITION: GLUCERNA AT 20CC/HR. RESIDUALS ON THE PREVIOUS SHIFT ARE ELEVATED. NO BM. DYE IN PLACE DRAINING CLEAR YELLOW LIQUID TO DOWN DRAIN BAG. GENERALIZED EDEMA. SKIN: 2 LEFT FOREARM SKIN TEARS CONTINUE TO WEEP. RIGHT HAND SKIN TEAR AND LATERAL HAND WOUND IS WEEPING. ALL ARE BEING TREATED WITH THERAHONEY AND COVER WITH A FOAM DRESSING. ALL PULSES ARE WEAK AND PALPABLE. NO NEW CULTURES. TODAY WAS THE 3RD IV REMDESIVIR. NO FEVERS. RIGO AREA REDNESS. SLIGHT IMPROVEMENT IN REDNESS. GLUTEAL SKIN TEAR. USING Z GUARD. SCDS ON.
--- NOTE | 2019-10-11 21:00 | NUR ---
NGT RESIDUAL 110CC. GLUCERNA REDUCED TO 10CC/HR. ORAL CARE DONE. 2 SORES ON MOUTH THAT BLEED EASILY. ETT SUCTIONED FOR A SMALL AMOUNT OF CLEAR FLUID. PATIENT LAID FLAT. O2 SAT DECREASED FROM 97 TO 93% FOR 15 MINUTES AND THEN I THE PATIENT RETURNED TO A SITTING POSITION. REMDESIVIR FINISHED. FLUSHED LINE WITH 60CC OF NORMAL SALINE. BILATERAL WOUND DRESSINGS REMOVED. WOUNDS CLEANED WITH ANTIBACTERIAL SOAP. DRIED. NEW THERAHONEY STRIP PLACED ON TOP OF WOUND . ALL COVERED WITH A FOAM DRESSING.
[2019-10-11] MEDS: FAMOTIDINE 20 MG TAB PO SCH (22:00)
--- NOTE | 2019-10-11 22:00 | NUR ---
LIFTED HIS HEAD TO REMOVED PILLOW AND PLACE A STABILIZATION PROP SO THAT I COULD DO HIS EAR DRESSING, LED TO HIM COUGHING, WHICH LED TO HIS O2 DESATURATION TO 88%. HIS RECOVERY PERIOD TO AN IMPROVED SATURATION IS DELAYED. IT DID RETURN TO 96%, BUT IT TOOK APPROXIMATELY 10 MINUTES. DRESSING REMOVED FROM RIGHT EAR. EAR CLEANED WITH ANTIBACTERIAL SOAP. DRIED. THERAHONEY STRIP PLACED TO AN APPROXIMATELY 1/2 INCH AREA OF EARLOBE THAT IS RED, SHRUNKEN, OPEN AND RED. THEN COVERED AREA WITH A FOAM DRESSING. THE AREA HAD SATURATED A FOAM DRESSING WITH SEROUS DRNG. ETT SUCTIONED FOR CLEAR SECRETIONS. ORAL CARE DONE. LARGE AMOUNT OF BLOODY DRNG IN THE MOUTH. NGT RESIDUAL IS 10CC. REINSTILLED AND CONTINUED THE TUBE FEEDING AT 10CC/HR. GOOD URINE OUTPUT.
[2019-10-12] VITALS (60 sets, daily range): BP systolic 80–133; BP diastolic 43–65
--- NOTE | 2019-10-12 | NUR ---
REPOSITIONED TO RIGHT USING PILLOW INSTEAD OF THE BED TO TURN HIM. HE INITIALLY DESATURATED TO 91%. BUT THEN PICKED UP WITHIN 3 MINUTES AND SLOWLY BEGAN TO RECAPTURE HIS O2 SATURATION GRADUALLY TO 96%. LUNGS CLEAR. SMALL AMOUNT OF BLOODY SECRETIONS FROM THE ETT AND ORAL CAVITY. ABDOMEN SOFT. TEMP PICKING UP WITH BLANKETS ON. DIURESING. TUBE FEEDING OFF 20CC IN, 30CC OUT FOR 2 HOURS. AMIODARONE TUBING CHANGE.
[2019-10-12] MEDS: ACCU-CHEK COMFORT CURVE STRIP VI SCH ×4 (00:28→18:30)
[2019-10-12] MEDS: InsuLIN REG 1unit/0.01ml Soln (100units/ml) SC SCH ×4 (00:29→18:51)
[2019-10-12] MEDS: PROPOFOL 100 ML IV SCH ×4 (00:30→20:00)
--- NOTE | 2019-10-12 03:27 | NUR ---
AM LAB DRAW
[2019-10-12 04:42] LABS: Basophils # (auto) 0 10 ^3/uL (0-0.2); Basophils % (auto) 0.7 % (0.0-2.0); Eosinophils # (auto) 0.1 10 ^3/uL (0-0.8); Eosinophils % (auto) 1.4 % (0.0-7.0); Hematocrit 34.2 % (41.0-53.0); Hemoglobin 11.2 g/dL (13.5-17.5); Lymphocytes # (auto) 0.5 10 ^3/uL (0.4-5.4); Lymphocytes % (auto) 8.2 % (10.0-50.0); Mean Corpuscular Hemoglobin 27.4 pg (28.0-32.0); Mean Corpuscular Hgb Conc. 32.8 g/dL (32.0-36.0); Mean Corpuscular Volume 83.3 fL (80.0-100.0); Monocytes # (auto) 0.5 10 ^3/uL (0-1.3); Monocytes % (auto) 7.5 % (0.0-12.0); Neutrophils # (auto) 5.3 10 ^3/uL (1.6-8.6); Neutrophils % (auto) 82.2 % (37.0-80.0); Nucleated Red Blood Cells % 0.1 %; Platelet Count (auto) 327 10^3/uL (140-450); Red Blood Cells 4.11 10^6/uL (4.5-5.90); Red Cell Distribution Width 16.6 % (11.8-14.3); White Blood Cell 6.4 10^3/uL (4.4-10.8)
[2019-10-12 04:55] LABS: Albumin 2.3 g/dL (3.4-5.0); Calcium 8.4 mg/dL (8.5-10.1); Magnesium 2.1 mg/dL (1.6-2.6); Potassium 3.3 mmol/L (3.5-5.1)
[2019-10-12 04:58] LABS: BUN/Creatinine Ratio 23.3; Bilirubin, Total 0.5 mg/dL (0.2-1.0); Total Protein 6.3 g/dL (6.4-8.2)
--- NOTE | 2019-10-12 05:00 | NUR ---
LESLIG BATH. Z GUARD TO RED RIGO AREA.
[2019-10-12] MEDS: fentaNYL Drip 2500mCg/250mlNS 250 ML IV SCH ×2 (05:53→17:20)
[2019-10-12] MEDS: FUROSEMIDE 20 MG/2 ML VIAL IV SCH ×2 (06:00→20:12)
--- NOTE | 2019-10-12 06:00 | NUR ---
DIPRIVAN TUBING CHANGED. ICE BAGS TO BACK OF NECK AND BOTH AXILLA FOR A TEMP OF 99.4 AXILLARY. SCDS OFF. BLANKETS OFF. RECTAL TEMP PROBE INACCURATE. DRAW SHEET CHANGED. PATIENT DID NOT DESATURATE. WE DID HAVE TO SUCTION HIM. WE OBTAINED PINK SECRETIONS. SMEAR OF BROWN STOOL (INCONTINENT) . TUBE FEEDING TURNED BACK ON. RESIDUAL WAS 10CC OF CREAMY LIQUID.
[2019-10-12] MEDS: IPRATROPIUM BROM 0.5 MG/2.5ML INH SOL NEB SCH ×3 (06:18→22:30)
[2019-10-12] MEDS: ALBUTEROL SULF 2.5 MG/0.5ML(0.5%) NEB SOLN NEB SCH ×3 (06:19→22:30)
--- NOTE | 2019-10-12 06:30 | NUR ---
ACCUCHECK 58. D50 GIVEN. REPEAT ACCHCHECK 202.
[2019-10-12] MEDS: INSULIN LANTUS (GLARGINE) 1 /0.01ml (100units/ml) SC SCH ×2 (08:23→22:00)
[2019-10-12] MEDS: cefTRIAXone 1GM/50ML D5W 50 ML IV SCH (09:53)
[2019-10-12] MEDS: LINEZOLID 600MG/300ML 300 ML IV SCH ×2 (10:34→22:00)
[2019-10-12] MEDS: DexAMETHasone SOD PHOS 4 MG/1ML SDV INJ IV SCH (10:35)
[2019-10-12] MEDS: ASCORBIC ACID 500 MG TAB PO SCH ×2 (10:35→22:00)
[2019-10-12] MEDS: ENOXAPARIN SOD 60 MG/0.6 ML SYRINGE SC SCH ×2 (10:35→22:00)
[2019-10-12] MEDS: ZINC SULFATE 220mg CAP or TAB PO SCH (10:36)
[2019-10-12] MEDS: BACITRACIN TOP OINT 1 UD PKG TOP SCH (10:36)
--- NOTE | 2019-10-12 11:00 | NUR ---
PATIENT'S DAUGHTER PHONES THIS AM - UPDATED ON CURRENT PATIENT CONDITION - VERBALIZES UNDERSTANDING.
--- NOTE | 2019-10-12 11:15 | NUR ---
ATTEMPTED TURN ASSIST MODE FOR PATIENT - DESATTED TO 90% - FURTHER REPOSITIONING HELD.
--- NOTE | 2019-10-12 11:30 | NUR ---
DR YANES VISITS PATIENT - ORDERS RECEIVED.
--- NOTE | 2019-10-12 12:00 | NUR ---
TF RESIDUAL 60 ML -WILL CONTINUE TO INFUSE AT 10ML/HR
[2019-10-12] MEDS: MIDAZOLAM DRIP 50 mg/50mL 50 ML IV SCH ×3 (12:15→20:00)
[2019-10-12] MEDS: AZITHROMYCIN 500MG/ 250ML 250 ML IV SCH (13:00)
[2019-10-12] MEDS ORDERED: METOCLOPRAMIDE HCL 5MG/ml INJ 2ml VIAL IV ONE (13:15)
[2019-10-12] MEDS: AMIODARONE 450mg/250ml AE 250 ML IV SCH ×2 (13:45)
[2019-10-12] MEDS: POTASSIUM CHL 20MEQ/100ML 100 ML IV SCH ×2 (14:46→16:28)
--- NOTE | 2019-10-12 15:40 | NUR ---
PATIENT WITH RAPID, SHALLOW RESP RATE 40-45, R.T. AT BEDSIDE, SAO2 92%. DR STEELE VISITS - REQUESTS VERSED BE ADDED TO SEDATION REGIMEN. DIPRIVAN NOT INCREASED SECONDARY TO BRADYCARDIA.
--- NOTE | 2019-10-12 16:25 | NUR ---
PATIENT AWAKE AND TRACKING [employer] GOODS PRESS HAND, DOES NOT FOLLOW COMMANDS. Addendum: 10/12/19 at 1626 by Viviane Aguilar RN Amended: Links added.
--- NOTE | 2019-10-12 17:30 | NUR ---
PATIENT CURRENTLY IN DEEP SEDATION.
--- NOTE | 2019-10-12 18:00 | NUR ---
TF RESIDUAL 100ML-TF HELD.
[2019-10-12] MEDS: REMDESIVIR 100mg in NS 230ml DAILYx4DAYS (NO VENT) IV SCH (18:30)
--- NOTE | 2019-10-12 20:00 | NUR ---
ADMITTED WITH SEVERE PNA, COVID TEST +, RESPIRATORY FAILURE, ATELECTASIS, NEL, HYPOKALEMIA AND HIGH A1C. REMAINS INTUBATED. DAY 14 OF INTUBATION WILL BE October. TODAY, THE DAUGHTER CALLED AND REPORTED THAT THE OTHER SISTER IS NOW SICK. DESATURATED WITH TURNING. SB 59. SBP BEING SUPPORTED WITH LEVOPHED. SEDATION: VERSED, FENTANYL AND PROPOFOL. TUBE FEEDING OFF DUE TO HIGH RESIDUALS. SKIN ISSUES UNCHANGED. ABDOMEN SOFT, ROUND AND LARGE. KUB IS UNREMARKABLE. SCDS ON. DYE TO DOWN DRAIN BAG. DIURESING FROM THE BID LASIX. HAS A RIJ TLC THAT IS WORKING WELL. RAMDESIVIR 3RD DOSE TODAY. AMIODARONE DRIP AT .5. NO ECTOPY.
[2019-10-12] MEDS: FAMOTIDINE 20 MG TAB PO SCH (22:00)
--- NOTE | 2019-10-12 22:00 | NUR ---
LAID PATIENT FLAT. DID NOT DESATURATE OR DROP HIS BLOOD PRESSURE. THE HEART RATE DID GO FROM 60 TO 56. THEN IT PICKED UP IN A FEW MINUTES. PATIENT IS VERY SEDATED. ALLOWS US TO DO ORAL CARE. BOTH ARMS ARE WEEPING AT SKIN TEAR SITES. RIGHT EAR IS DRAINING FROM AN OPEN DTI WOUND. DYE DRAINING CLEAR YELLOW LIQUID IN ADEQUATE AMOUNTS. SCDS ON. NO BM. NSR WITHOUT ECTOPY. IV SITE RIJ : DRESSING IS CLEAN, DRY AND BIOPATCH AT SITE.
[2019-10-12] MEDS: NOREPINEPHRINE 8 MG/250ML KIT 250 ML IV SCH (22:50)
[2019-10-13] VITALS (93 sets, daily range): BP systolic 74–186; BP diastolic 41–95
--- NOTE | 2019-10-13 | NUR ---
REPOSITIONED TO THE RIGHT SIDE WITHOUT INCIDENT. NO DROP IN HEART RATE, NO DROP IN BLOOD PRESSURE. NO DISTRESS. ETT SUCTIONED FOR A SMALL AMT OF BLOOD TINGED SECRETIONS. ORAL CARE DONE. MOISTURIZER TO LIPS. LUNGS CLEAR. DYE DRAINING AN ADEQUATE AMOUNT OF YELLOW LIQUID TO DOWN DRAIN BAG. ARMS AREN'T WEEPING MUCH. TINY AMOUNT OF DARK BROWN STOOL. RT HAS WEANED THE FIO2 TO 40% FROM 55%. NO CHANGE IN DRIP RATES. VERY SEDATED . NO DISTRESS. TOOK AN ORAL TEMP VERSUS RECTAL TEMP PROBE. ORAL TEMP IS 98, RECTAL TEMP PROBE 97 DEGREES. SINUS BRADYCARDIA 55. NO ECTOPY
[2019-10-13] MEDS: PROPOFOL 100 ML IV SCH ×3 (01:14→09:00)
--- NOTE | 2019-10-13 02:00 | NUR ---
REPOSITIONED TO BACK. SINUS BRADYCARDIA LOW 48. DECREASED THE PROPOFOL AND VERSED. PATIENT IS STILL VERY SLEEPY. GOOD URINE OUTPUT.
--- NOTE | 2019-10-13 04:06 | NUR ---
Respiratory note: AT BEDSIDE, IN FULL PPE, TO HELP RN WITH PT REPOSITION. PT TOLERATING WELL. SPO2 NOTED AT 94%.
[2019-10-13 04:55] LABS: Basophils # (auto) 0 10 ^3/uL (0-0.2); Basophils % (auto) 0.5 % (0.0-2.0); Eosinophils # (auto) 0 10 ^3/uL (0-0.8); Eosinophils % (auto) 0.8 % (0.0-7.0); Hematocrit 34.4 % (41.0-53.0); Hemoglobin 11.4 g/dL (13.5-17.5); Lymphocytes # (auto) 0.4 10 ^3/uL (0.4-5.4); Lymphocytes % (auto) 8.3 % (10.0-50.0); Mean Corpuscular Hemoglobin 27.7 pg (28.0-32.0); Mean Corpuscular Hgb Conc. 33.1 g/dL (32.0-36.0); Mean Corpuscular Volume 83.6 fL (80.0-100.0); Monocytes # (auto) 0.4 10 ^3/uL (0-1.3); Monocytes % (auto) 8.3 % (0.0-12.0); Neutrophils # (auto) 4.4 10 ^3/uL (1.6-8.6); Neutrophils % (auto) 82.1 % (37.0-80.0); Nucleated Red Blood Cells % 0.1 %; Platelet Count (auto) 287 10^3/uL (140-450); Red Blood Cells 4.11 10^6/uL (4.5-5.90); Red Cell Distribution Width 16.7 % (11.8-14.3); White Blood Cell 5.3 10^3/uL (4.4-10.8)
[2019-10-13 05:17] LABS: Potassium 3.4 mmol/L (3.5-5.1)
[2019-10-13 05:27] LABS: BUN/Creatinine Ratio 19.8; Calcium 8.1 mg/dL (8.5-10.1)
[2019-10-13] MEDS: ACCU-CHEK COMFORT CURVE STRIP VI SCH ×4 (05:57→18:30)
[2019-10-13] MEDS: InsuLIN REG 1unit/0.01ml Soln (100units/ml) SC SCH ×4 (05:58→18:30)
[2019-10-13] MEDS: fentaNYL Drip 2500mCg/250mlNS 250 ML IV SCH ×2 (06:00→17:54)
[2019-10-13] MEDS: AMIODARONE 450mg/250ml AE 250 ML IV SCH (06:00)
[2019-10-13] MEDS: FUROSEMIDE 20 MG/2 ML VIAL IV SCH ×2 (06:00→20:13)
--- NOTE | 2019-10-13 06:00 | NUR ---
SEVERAL LINE CHANGES. BACKED OFF ON SEDATION TO REGAIN THE HEART RATE. PROPOFOL AND VERSED ARE LESS. TOLERATED TURNING WELL WITH PILLOWS , NOT THE BED.SMALL BM.
[2019-10-13] MEDS: ALBUTEROL SULF 2.5 MG/0.5ML(0.5%) NEB SOLN NEB SCH ×3 (07:12→22:37)
[2019-10-13] MEDS: IPRATROPIUM BROM 0.5 MG/2.5ML INH SOL NEB SCH ×3 (07:12→22:37)
--- NOTE | 2019-10-13 09:00 | NUR ---
PATIENT WITH SPONTANEOUS EYE OPENING - TRACKS SOFTWARE PROGRAM MANAGER - APPEARS ANXIOUS-SEDATION INCREASED - SEE IV SPREAD SHEET Addendum: 10/13/19 at 2030 by Viviane Aguilar RN Amended: Links added.
[2019-10-13] MEDS: cefTRIAXone 1GM/50ML D5W 50 ML IV SCH (09:15)
[2019-10-13] MEDS: DexAMETHasone SOD PHOS 4 MG/1ML SDV INJ IV SCH (09:26)
[2019-10-13] MEDS: LINEZOLID 600MG/300ML 300 ML IV SCH ×2 (09:26→22:00)
[2019-10-13] MEDS: BACITRACIN TOP OINT 1 UD PKG TOP SCH (09:28)
[2019-10-13] MEDS ORDERED: PANTOPRAZOLE 40 MG/10 ML VIAL INJ IV SCH (10:00)
--- NOTE | 2019-10-13 10:03 | NUR ---
PATIENT'S DAUGHTER DENNIS PHONES - GIVEN UPDATE ON PATIENT CONDITION - VERBALIZES UNDERSTANDING. DIRECTOR HEALTH PHONEElba RADIOLOGY FOR STAT CT BRAIN - STATE HAVE TO DO STAT CXR BEFORE CT BRAIN. Addendum: 10/13/19 at 1006 by Viviane Aguilar RN INCORRECT ENTRY - WRONG PATIENT.
[2019-10-13] MEDS: AZITHROMYCIN 500MG/ 250ML 250 ML IV SCH (10:16)
[2019-10-13] MEDS: ZINC SULFATE 220mg CAP or TAB PO SCH (10:17)
[2019-10-13] MEDS: ASCORBIC ACID 500 MG TAB PO SCH ×2 (10:17→22:00)
[2019-10-13] MEDS: ENOXAPARIN SOD 60 MG/0.6 ML SYRINGE SC SCH ×2 (10:17→22:00)
--- NOTE | 2019-10-13 11:17 | NUR ---
DR MERCEDES VISITS - ORDERS RECEIVED. DR YANES PHONED PATIENT'S DAUGHTER DENNIS AND DISCUSSED PATIENT CONDITION AND POC.
--- NOTE | 2019-10-13 11:29 | NUR ---
TF REMAINS ON HOLD THIS AM DUE TO HIGH RESIDUALS. SBP LOW THIS AM LEVOPHED INCREASED - SEE IV SPREAD SHEET.
[2019-10-13] MEDS ORDERED: TPN PER PHARMACY 0 ML IV SCH (11:45)
[2019-10-13 12:12] LABS: Albumin 2.4 g/dL (3.4-5.0); Bilirubin, Direct 0.4 mg/dL (0-0.2); Magnesium 2.1 mg/dL (1.6-2.6)
[2019-10-13 12:15] LABS: Bilirubin, Total 0.6 mg/dL (0.2-1.0); Phosphorus 2.8 mg/dL (2.5-4.90); Total Protein 6.4 g/dL (6.4-8.2)
[2019-10-13] MEDS ORDERED: POTASSIUM CHL 20MEQ/100ML 100 ML IV ONE (13:45)
--- NOTE | 2019-10-13 19:00 | NUR ---
Opening shift note: Primary RN received report on patient. Pt intubated ETT 8.0/24cm @ LL, Vent settings: AC 16/ TV 600/ FIO2 40%/ PEEP 14, O2 saturation 96%, bilateral lung sounds clear and diminished. Central line to right IJ triple lumen, infusing Propofol @ 30, Fentanyl @ 200, Versed @ 3, Amiodorone @ 0.5 and levo @ 5. NGT to right nare clamped, placement checked. Hernandez catheter draining via gravity with yellow urine and sediment. Safety precautions in place. Will continue to monitor. Patient in isolation for COVID-19 positive.
[2019-10-13] MEDS ORDERED: TPN PER PHARMACY IV NR ×8 (20:00)
--- NOTE | 2019-10-13 20:00 | NUR ---
TPN not administered: RN attempted to administer TPN per MD orders. Patient currently had a right IJ central line but one port is no longer flushing or pulling back. Patient currently running propofol, fentanyl, versed, levo and amio through the other two ports and they cannot be disconnected at this time d/t patient's condition. RN attempted multiple times to start peripheral IV's but was unsuccessful.
[2019-10-13] MEDS: FAMOTIDINE 20 MG TAB PO SCH (22:00)
[2019-10-13] MEDS: INSULIN LANTUS (GLARGINE) 1 /0.01ml (100units/ml) SC SCH (22:00)
--- NOTE | 2019-10-13 22:59 | NUR ---
Patient unstable: RN provided repositioning with patient and noted patient to de-saturate to 69%. RT present at bedside. Patient's FIO2 was increased to 100%, patient was given time to relax and was noted to now have a pulse ox of 96%. RN and RT decreased FIO2 to 50%. Patient continues to sat at 95%. RN will continue to monitor and assess.
[2019-10-14] VITALS (103 sets, daily range): BP systolic 94–161; BP diastolic 51–79
[2019-10-14] MEDS: AMIODARONE 450mg/250ml AE 250 ML IV SCH (01:00)
[2019-10-14] MEDS: NOREPINEPHRINE 8 MG/250ML KIT 250 ML IV SCH (01:30)
[2019-10-14] MEDS ORDERED: fentaNYL Drip 2500mCg/250mlNS 250 ML IV ONE (04:40)
[2019-10-14 04:58] LABS: Basophils # (auto) 0.1 10 ^3/uL (0-0.2); Basophils % (auto) 1.4 % (0.0-2.0); Eosinophils # (auto) 0.1 10 ^3/uL (0-0.8); Eosinophils % (auto) 2.2 % (0.0-7.0); Hematocrit 36.6 % (41.0-53.0); Lymphocytes # (auto) 0.6 10 ^3/uL (0.4-5.4); Lymphocytes % (auto) 14.2 % (10.0-50.0); Mean Corpuscular Hemoglobin 27.5 pg (28.0-32.0); Mean Corpuscular Volume 83.3 fL (80.0-100.0); Monocytes # (auto) 0.4 10 ^3/uL (0-1.3); Monocytes % (auto) 10.6 % (0.0-12.0); Neutrophils % (auto) 71.6 % (37.0-80.0); Nucleated Red Blood Cells % 0.5 %; Platelet Count (auto) 315 10^3/uL (140-450); Red Blood Cells 4.39 10^6/uL (4.5-5.90); Red Cell Distribution Width 16.7 % (11.8-14.3); White Blood Cell 4.1 10^3/uL (4.4-10.8)
[2019-10-14 05:18] LABS: Albumin 2.4 g/dL (3.4-5.0); Calcium 8.1 mg/dL (8.5-10.1); Magnesium 2.1 mg/dL (1.6-2.6); Potassium 3.5 mmol/L (3.5-5.1)
[2019-10-14 05:24] LABS: Bilirubin, Total 0.6 mg/dL (0.2-1.0); Phosphorus 2.6 mg/dL (2.5-4.90); Pre Albumin 29.7 mg/dL (20.0-40.0); Total Protein 6.6 g/dL (6.4-8.2)
[2019-10-14] MEDS: InsuLIN REG 1unit/0.01ml Soln (100units/ml) SC SCH ×4 (06:15→17:36)
[2019-10-14] MEDS: ACCU-CHEK COMFORT CURVE STRIP VI SCH ×4 (06:15→17:50)
[2019-10-14] MEDS: FUROSEMIDE 20 MG/2 ML VIAL IV SCH ×2 (06:21→17:35)
[2019-10-14] MEDS: IPRATROPIUM BROM 0.5 MG/2.5ML INH SOL NEB SCH ×3 (06:59→22:48)
[2019-10-14] MEDS: ALBUTEROL SULF 2.5 MG/0.5ML(0.5%) NEB SOLN NEB SCH ×3 (06:59→22:48)
[2019-10-14] MEDS: cefTRIAXone 1GM/50ML D5W 50 ML IV SCH (09:00)
--- NOTE | 2019-10-14 09:28 | NUR ---
SEDATION VACATION SEDATION VACATION HELD DUE TO PATIENT O2 SAT BEING COMPROMISED. AWARE
[2019-10-14] MEDS: ENOXAPARIN SOD 60 MG/0.6 ML SYRINGE SC SCH ×2 (10:00→23:53)
[2019-10-14] MEDS: ASCORBIC ACID 500 MG TAB PO SCH ×2 (10:00→23:49)
[2019-10-14] MEDS: BACITRACIN TOP OINT 1 UD PKG TOP SCH (10:00)
[2019-10-14] MEDS: ZINC SULFATE 220mg CAP or TAB PO SCH (10:00)
[2019-10-14] MEDS: DexAMETHasone SOD PHOS 4 MG/1ML SDV INJ IV SCH (10:00)
[2019-10-14] MEDS: AZITHROMYCIN 500MG/ 250ML 250 ML IV SCH (11:42)
[2019-10-14] MEDS: MIDAZOLAM DRIP 50 mg/50mL 50 ML IV SCH (13:07)
[2019-10-14] MEDS: LINEZOLID 600MG/300ML 300 ML IV SCH ×2 (13:07→23:48)
[2019-10-14 14:49] LABS: INR 0.99 (0.9-1.15)
--- NOTE | 2019-10-14 15:04 | NUR ---
Nutrition Followup Notes Wt: 113.0 kg Pt is in isolation room d/t COVID positive. Pt continues to be intubated sedated with propofol @ 17.295 ml/hr providing 457 kcals from fats. Pt continues to be NPO receiving EN nutrition support Glucerna 1.2 at 10ml/hr. Noted TPN order for pt not yet initiated. Will continue to monitor PO status, skin status, pertinent labs and weight trends. Will f/u in 2-3 days. Est energy needs 0024-5624 kcal (14-18 kcal/kg BW 115.298kg) , Est protein needs 69-86g (0.6-0.75g/kg BW 115.289 kg, r/t elevated RFT, no HD). Will reassess prn. LABS: GLUC 182 H, Alb 2.4 L, CO2 34 H, Ca 8.1 L GI: Pt had 1 bm 10/08 per RN doc. BS: 9 high risk. Please refer to wound assessment report for full details. PES: 1) Altered nutrition related lab values r.t current chronic medical condition aeb elevated RFTs, hyperglycemia, severe hypoalb Recommendation: 1) Consider Glucerna at 45 ml/hr on current rate of propofol 2) Advance diet as medically feasible to Renal Specific 70g if pt is not on HD 4) F/u 2-3 days Addendum: 10/14/19 at [address] Additional Note: Scheduled TPN to run @ 43 ml/hr, providing 50g Protein, 1050 kcals and 850 NPCs. Pt with inadequate energy intake from scheduled PN support aeb 52-65% of est caloric needs. Protein intake from PN support is inadequate aeb 58-72% of est protein needs.
--- NOTE | 2019-10-14 15:23 | NUR ---
Respiratory note: PEEP DECREASED TO [address] CRAMER'S VERBAL ORDER. ZAID ARMENDARIZ MADE AWARE OF CHANGE.
[2019-10-14] MEDS: PROPOFOL 100 ML IV SCH (16:26)
--- NOTE | 2019-10-14 19:30 | NUR ---
PT ETT TO VENT, SETTINGS AC18/TV550/FIO2 45%/PEEP10, POX96%, DIMINISHED LUNG SOUNDS BL, PT DESAT WHILE TURNING. SR ON THE MONITOR, HR 70-80'S. PT HAS RT IJ TL INTACT AND PATENT, INFUSING PROPOFOL, VERSED, LEVOPHED, TPN, AND ABX. PT HAS RT NARE NGT, PLACEMENT CHECKED, CLAMPED. DYE CATHETER DRAINING VIA GRAVITY W/ YELLOW URINE AND SEDIMENT. DRESSING INTACT ON LFA AND LOWER LFA. PT HAS DRIED BLOOD AND SCABBING ON RT AND LT SIDES OF MOUTH, HAS SMALL AMT OF BLOOD WHILE W/ ORAL CARE. SAFETY PRECAUTIONS IN PLACE. WILL CONTINUE TO MONITOR.
[2019-10-14] MEDS ORDERED: TPN PER PHARMACY IV NR ×10 (20:00)
[2019-10-14] MEDS: FAMOTIDINE 20 MG TAB PO SCH (23:49)
[2019-10-14] MEDS: AMIODARONE HCL 200 MG TAB PO SCH (23:49)
[2019-10-14] MEDS: INSULIN LANTUS (GLARGINE) 1 /0.01ml (100units/ml) SC SCH (23:50)
[2019-10-15] VITALS (101 sets, daily range): BP systolic 96–147; BP diastolic 51–75
[2019-10-15] MEDS: InsuLIN REG 1unit/0.01ml Soln (100units/ml) SC SCH ×4 (00:14→17:38)
[2019-10-15] MEDS: ACCU-CHEK COMFORT CURVE STRIP VI SCH ×4 (00:31→17:37)
[2019-10-15] MEDS: PROPOFOL 100 ML IV SCH ×3 (03:20→21:15)
[2019-10-15] MEDS: NOREPINEPHRINE 8 MG/250ML KIT 250 ML IV SCH (05:18)
--- NOTE | 2019-10-15 06:00 | NUR ---
PT ETT SECRETIONS THICK LARGE AMT, PT TOLERATING WELL, POX 95%. Addendum: 10/15/19 at 0652 by CARINA GE RN RN PT TOLERATED ETT SUCTIONING WELL, POX 95%.
[2019-10-15] MEDS: FUROSEMIDE 20 MG/2 ML VIAL IV SCH ×2 (06:30→17:37)
[2019-10-15 06:33] LABS: Basophils # (auto) 0 10 ^3/uL (0-0.2); Basophils % (auto) 0.4 % (0.0-2.0); Eosinophils # (auto) 0.1 10 ^3/uL (0-0.8); Eosinophils % (auto) 0.8 % (0.0-7.0); Hematocrit 35.2 % (41.0-53.0); Hemoglobin 11.6 g/dL (13.5-17.5); Lymphocytes # (auto) 0.7 10 ^3/uL (0.4-5.4); Lymphocytes % (auto) 7.9 % (10.0-50.0); Mean Corpuscular Hemoglobin 27.7 pg (28.0-32.0); Mean Corpuscular Hgb Conc. 33.1 g/dL (32.0-36.0); Mean Corpuscular Volume 83.8 fL (80.0-100.0); Monocytes # (auto) 0.4 10 ^3/uL (0-1.3); Monocytes % (auto) 4.4 % (0.0-12.0); Neutrophils # (auto) 8.1 10 ^3/uL (1.6-8.6); Neutrophils % (auto) 86.5 % (37.0-80.0); Platelet Count (auto) 253 10^3/uL (140-450); Red Cell Distribution Width 17.2 % (11.8-14.3); White Blood Cell 9.4 10^3/uL (4.4-10.8)
[2019-10-15] MEDS: IPRATROPIUM BROM 0.5 MG/2.5ML INH SOL NEB SCH ×3 (07:01→22:13)
[2019-10-15] MEDS: ALBUTEROL SULF 2.5 MG/0.5ML(0.5%) NEB SOLN NEB SCH ×3 (07:01→22:13)
--- NOTE | 2019-10-15 07:04 | NUR ---
Respiratory note: RECEIVED PATIENT ON V5 ESPRIT VENT ORALLY INTUBATED WITH AN 8.0 ETT SECURED VIA ODALYS AT THE 27CM MARKING AT THE LIP, AND MECHANICALLY VENTILATED WITH THE CHARTED SETTINGS. SPO2 95%, LUNG SOUNDS DIM T/O, SMALL AMOUNT OF THICK YELLOW SECRETIONS WHEN SUCTIONED. SKIN IS WARM/DRY TO THE TOUCH AND IS SHOWING SOME BREAKDOWN/IRRITATION ON UPPER LIP UNDER ODALYS. THERE IS PITTING EDEMA NOTED IN BILATERAL UPPER AND BILATERAL LOWER EXTREMITIES. AM CXR ASSESSED AND IT SHOWS ETT IN SATISFACTORY POSITION SITTING APPROX 3.5CM ABOVE THE ROXANNA, NO INDICATION TO ADJUST TUBE AT THIS TIME. PATIENT IS UNRESPONSIVE TO ALL STIMULI AND IS SEDATED ON PROPOFOL AND VERSED DRIPS. HE IS RESTING COMFORTABLY AND TOLERATING VENT WELL, NO CHANGES MADE. VENT PLUGGED INTO A RED OUTLET AND ALL ALARMS ARE SET AND AUDIBLE. WILL CONTINUE TO ASSESS PATIENT WELL VENTILATOR FUNCTION. MED-NEB RUN INLINE, ABG DRAWN.
[2019-10-15 07:15] LABS: Albumin 2.3 g/dL (3.4-5.0); BUN/Creatinine Ratio 20.4; Bilirubin, Total 0.6 mg/dL (0.2-1.0); Calcium 8.3 mg/dL (8.5-10.1); Magnesium 2.1 mg/dL (1.6-2.6); Total Protein 6.3 g/dL (6.4-8.2)
[2019-10-15 07:23] LABS: Potassium 2.9 mmol/L (3.5-5.1)
--- NOTE | 2019-10-15 07:36 | NUR ---
CALL OUT TO FATOUMATA MÉNDEZ REGARDING CRITICAL LAB OF POTASSIUM OF 2.9. DR. RHOADES STATES HE WILL PUT IN ORDERS RIGHT NOW FOR POTASSIUM.
[2019-10-15] MEDS: POTASSIUM CHL 20MEQ/100ML 100 ML IV SCH ×2 (08:03→08:48)
[2019-10-15] MEDS: cefTRIAXone 1GM/50ML D5W 50 ML IV SCH (09:16)
--- NOTE | 2019-10-15 09:30 | NUR ---
DR. Ang CRAMER HERE TO SEE PATIENT. SEE MD NOTES AND EMR FOR ANY NEW ORDERS.
[2019-10-15] MEDS ORDERED: POTASSIUM EFFERVESENT TAB 25 MEQ GT ONE (09:45)
[2019-10-15] MEDS: ZINC SULFATE 220mg CAP or TAB PO SCH (10:00)
[2019-10-15] MEDS: AMIODARONE HCL 200 MG TAB PO SCH ×2 (10:00→22:00)
[2019-10-15] MEDS: BACITRACIN TOP OINT 1 UD PKG TOP SCH (10:00)
[2019-10-15] MEDS: ASCORBIC ACID 500 MG TAB PO SCH ×2 (10:00→22:00)
[2019-10-15] MEDS: AZITHROMYCIN 500MG/ 250ML 250 ML IV SCH (10:03)
--- NOTE | 2019-10-15 10:12 | NUR ---
Respiratory note: VENT CHANGES MADE AT THIS TIME PER DR. CRAMER'S VERBAL ORDER. RR DECREASED TO 14, VT INCREASED TO 600, PEEP DECREASED TO 8. PATIENT TOLERATING CHANGES WELL AND CONTINUES TO BE UNRESPONSIVE TO STIMULI AND SEDATED ON VERSED AND PROPOFOL DRIPS. ZAID ARMENDARIZ MADE AWARE OF CHANGES.
[2019-10-15] MEDS: DexAMETHasone SOD PHOS 4 MG/1ML SDV INJ IV SCH (10:45)
[2019-10-15] MEDS: LINEZOLID 600MG/300ML 300 ML IV SCH ×2 (11:12→22:00)
[2019-10-15] MEDS: MIDAZOLAM DRIP 50 mg/50mL 50 ML IV SCH (12:15)
[2019-10-15] MEDS ORDERED: POTASSIUM PHOSPHATE 44 MEQ in D5W 5% 250 ML IV ONE (14:00)
--- NOTE | 2019-10-15 17:38 | NUR ---
CALL OUT TO DR. MON REGARDING BLOOD SUGAR OF [phone]. AWAITING CALL BACK.
--- NOTE | 2019-10-15 19:10 | NUR ---
Report received from ZAID Gamez. Patient intubated with ETT 8.0 at 24 CM L/L. Vent settings: AC 16, Vt 550, FiO2 40%, PEEP 8. Patient IVF: Levophed 3.984 mcg/min (7.47 ml/hr); Propofol 30 mcg/kg/min (20.88 ml/hr); Versed drip 5 mg/hr (5 ml/hr); TPN at 43 ml/hr. Versed to be discontinued after current bag infused. Patient to possibly discontinue sedation for SIMV in am and CPAP Trials on . Will continue with POC; and, will continue to monitor VS, RASS, and clinical status.
[2019-10-15] MEDS ORDERED: TPN*HIGH CONC* PER PHARMACY IV NR ×10 (20:00)
--- NOTE | 2019-10-15 20:20 | NUR ---
TPN bag changed to new bag.
--- NOTE | 2019-10-15 21:15 | NUR ---
Propofol bottle exchanged to new bottle.
[2019-10-15] MEDS: FAMOTIDINE 20 MG TAB PO SCH (22:00)
[2019-10-15] MEDS: INSULIN LANTUS (GLARGINE) 1 /0.01ml (100units/ml) SC SCH (22:00)
--- NOTE | 2019-10-15 22:00 | NUR ---
Accucheck 301 mg/dl. Patient medicated with scheduled Lantus 30 units SQ.
--- NOTE | 2019-10-15 23:30 | NUR ---
Levophed drip decrease to 3.499 mcg/min (6.56 ml/hr) due to BP 117/60.
[2019-10-16] VITALS (100 sets, daily range): BP systolic 91–149; BP diastolic 51–75
--- NOTE | 2019-10-16 | NUR ---
Accucheck 293 mg/dl. Patient covered with Regular Insulin 9 units SQ per Sliding Scale.
[2019-10-16] MEDS: ACCU-CHEK COMFORT CURVE STRIP VI SCH ×4 (00:58→18:27)
--- NOTE | 2019-10-16 01:15 | NUR ---
Levophed drip decrease to 2.997 mcg/min (5.62 ml/hr) due to BP 135/72.
[2019-10-16] MEDS: PROPOFOL 100 ML IV SCH ×6 (02:30→22:45)
--- NOTE | 2019-10-16 02:30 | NUR ---
Propofol bottle exchanged to new bottle.
--- NOTE | 2019-10-16 03:30 | NUR ---
Propofol increase to 35 mcg/kg/min (24.36 ml/hr) due to patient over-riding vent 21-23 breaths/min.
--- NOTE | 2019-10-16 04:05 | NUR ---
Head Of [employer] outside of room. Silk Winding Machine Operator collects am blood draw from CVC TLC. Specimens given to Head Of [employer] and specimens sent to lab.
[2019-10-16 04:54] LABS: Basophils # (auto) 0 10 ^3/uL (0-0.2); Basophils % (auto) 0.5 % (0.0-2.0); Eosinophils # (auto) 0.1 10 ^3/uL (0-0.8); Eosinophils % (auto) 0.8 % (0.0-7.0); Hematocrit 34.1 % (41.0-53.0); Hemoglobin 11.3 g/dL (13.5-17.5); Lymphocytes # (auto) 0.7 10 ^3/uL (0.4-5.4); Lymphocytes % (auto) 10.1 % (10.0-50.0); Mean Corpuscular Hemoglobin 27.7 pg (28.0-32.0); Monocytes # (auto) 0.4 10 ^3/uL (0-1.3); Monocytes % (auto) 6.3 % (0.0-12.0); Neutrophils # (auto) 5.4 10 ^3/uL (1.6-8.6); Neutrophils % (auto) 82.3 % (37.0-80.0); Nucleated Red Blood Cells % 0.2 %; Platelet Count (auto) 266 10^3/uL (140-450); Red Blood Cells 4.06 10^6/uL (4.5-5.90); Red Cell Distribution Width 17.1 % (11.8-14.3); White Blood Cell 6.6 10^3/uL (4.4-10.8)
[2019-10-16 05:12] LABS: Potassium 4.3 mmol/L (3.5-5.1)
[2019-10-16 05:18] LABS: Albumin 2.4 g/dL (3.4-5.0); BUN/Creatinine Ratio 25.2; Bilirubin, Total 0.6 mg/dL (0.2-1.0); Calcium 8.3 mg/dL (8.5-10.1); Magnesium 2.2 mg/dL (1.6-2.6); Phosphorus 3.1 mg/dL (2.5-4.90); Total Protein 6.3 g/dL (6.4-8.2)
--- NOTE | 2019-10-16 05:21 | NUR ---
PCXR done at bedside.
--- NOTE | 2019-10-16 05:50 | NUR ---
Accucheck 216 mg/dl. Patient covered with Regular Insulin 6 units SQ per Sliding Scale.
[2019-10-16] MEDS: FUROSEMIDE 20 MG/2 ML VIAL IV SCH ×2 (06:03→18:22)
[2019-10-16] MEDS: InsuLIN REG 1unit/0.01ml Soln (100units/ml) SC SCH ×4 (06:05→18:26)
[2019-10-16] MEDS: ALBUTEROL SULF 2.5 MG/0.5ML(0.5%) NEB SOLN NEB SCH ×3 (07:34→22:46)
[2019-10-16] MEDS: IPRATROPIUM BROM 0.5 MG/2.5ML INH SOL NEB SCH ×3 (07:35→22:46)
[2019-10-16] MEDS: INSULIN LANTUS (GLARGINE) 1 /0.01ml (100units/ml) SC SCH ×2 (09:30→21:34)
--- NOTE | 2019-10-16 09:45 | NUR ---
DR. BEEBE ROUNDING ON PT. NEW ORDERS RECEIVED.
[2019-10-16] MEDS ORDERED: ENOXAPARIN SOD 40 MG/0.4 ML SYRINGE SC SCH (10:00)
--- NOTE | 2019-10-16 10:00 | NUR ---
AM ASSESSMENT COMPLETED PT ON COVID ISOLATION, ALL CARE IS BEING CLUSTERED. REMAINS ON VENTILATOR. PT NOW ON 40% FI02 , IS TRYING TO WEAN DOWN SEDATION AND TRY SIMV MODE OF VENTILATION TO SEE IF PT CAN BE WEANED OFF VENTILATOR. LS CL IN UPPER LOBES AND DIMINISHED ON THE BASES, PT IS OBESE AND HAS DIFFICULTY CLEARING UP SECRETIONS. HAS ABDOMINAL COUGHING SPELLS. WHICH TAKE PT A WHILE TO RECOVER AFTER SUCTIONING OR AFTER REPOSITIONING. PT IS ON LOW DOSE OF LEVOPHED FOR BP SUPPORT WHILE ON SEDATION. SEE IV FLOW SHEET FOR TITRATION OF GTTS. PT DID NOT TOLERATED TUBE FEEDINGS AND IS RECEIVING TPN. AND IS ON ACCUCHECKS WITH BOTH REGULAR INSULIN AND LONG ACTING INSULIN COVERAGE, REFER TO PT'S E-MAR. ORAL CARE PROVIDED AT THIS TIME.
[2019-10-16] MEDS: AZITHROMYCIN 500MG/ 250ML 250 ML IV SCH (10:12)
[2019-10-16] MEDS: DexAMETHasone SOD PHOS 4 MG/1ML SDV INJ IV SCH (10:12)
[2019-10-16] MEDS: ZINC SULFATE 220mg CAP or TAB PO SCH (10:12)
[2019-10-16] MEDS: AMIODARONE HCL 200 MG TAB PO SCH ×2 (10:14→21:33)
[2019-10-16] MEDS: ASCORBIC ACID 500 MG TAB PO SCH ×2 (10:15→21:34)
[2019-10-16] MEDS: BACITRACIN TOP OINT 1 UD PKG TOP SCH (10:15)
[2019-10-16] MEDS: ENOXAPARIN SOD 60 MG/0.6 ML SYRINGE SC SCH (10:17)
[2019-10-16] MEDS: LINEZOLID 600MG/300ML 300 ML IV SCH ×2 (13:03→21:33)
--- NOTE | 2019-10-16 13:52 | NUR ---
Respiratory note: PLACED PT ON SIMV MODE ORDERED BY . PT DID NOT TOLERATE, INSTANT NOTED INCREASE IN RR AND DECREASE IN VT. PT PLACED BACK ON PREVIOUS AC MODE AND SETTING. PT NOTED TO BE TOLERATING MUCH BETTER. DECREASE IN RR NOTED AND INCREASED IN VT. RN BREE AWARE OF PT NOT TOLERATING SIMV MODE.
[2019-10-16] MEDS: ACETAMINOPHEN 325 MG TAB PO PRN (15:31)
--- NOTE | 2019-10-16 15:49 | NUR ---
Nutrition Followup Notes Wt: 113.0 kg Pt is in isolation room d/t COVID positive. Pt continues to be intubated sedated with propofol @ 24.36 ml/hr providing 643 kcals from fats. Pt continues to be NPO receiving TPN nutrition support 36ml/hr, providing 90g proteins, 860 kcals, and 500 kcal NPCs. Pt with inadequate energy intake from PN support as it meets 41% to 53% of est caloric needs. Protein intake from PN support is adequate as it meets 105% to 130% protein needs. Pt with no noted distress per RN doc. Will continue to monitor PO status, skin status, pertinent labs and weight trends. Will f/u in 2-3 days. Est energy needs 3447-8497 kcal (14-18 kcal/kg BW 115.298kg) , Est protein needs 69-86g (0.6-0.75g/kg BW 115.289 kg, r/t elevated RFT, no HD). Will reassess prn. LABS: Na 135 L, GLUC 252 H, A1c 9.6 H, Alb 2.6 L, CO2 35 H, GI: Pt had 1 bm 7/ per RN doc. BS: 11 high risk. Please refer to wound assessment report for full details. PES: 1) Altered nutrition related lab values r.t current chronic medical condition aeb elevated RFTs, hyperglycemia, severe hypoalb Recommendation: 1) Consider Glucerna at 45 ml/hr on current rate of propofol 2) Advance diet as medically feasible to Renal Specific 70g if pt is not on HD 4) F/u 2-3 days Addendum: 10/14/19 at [address] Additional Note: Scheduled TPN to run @ 43 ml/hr, providing 50g Protein, 1050 kcals and 850 NPCs. Pt with inadequate energy intake from scheduled PN support aeb 52-65% of est caloric needs. Protein intake from PN support is inadequate aeb 58-72% of est protein needs.
--- NOTE | 2019-10-16 16:48 | NUR ---
NOTIFIED DR. Blair BEEBE THAT PT DID NOT TOLERATE IMV SETTINGS AT ALL, HE'LL HAVE COUGHING FITS, LOW SPO2'S AND LOW TV IN THE LOW 200'S. PT ALSO NEEDS ADDITIONAL SEDATION. PT STILL AWAKE ON 50 ZOHRA OF PROPOFOL AND CONTINUES TO HAVE COUGHING FITS. OK TO ADD VERSED FOR SEDATION.
[2019-10-16] MEDS ORDERED: TPN*HIGH CONC* PER PHARMACY IV NR ×10 (20:00)
--- NOTE | 2019-10-16 20:00 | NUR ---
Opening Shift Note: Patient is intubated/sedated. ET size 8.0/24 @ lip. Vent settings: AC rate 14; vT 600; FiO2 40%; PEEP 8. Neuro: pupils are 5 mm in size/sluggish; flaccid extremities; + cough/gag. Cardio: NSR 80s-90s; SBPS 90s-100s; radial pulses palpable; DP pulses weak but palpable. Respiratory: lung sounds coarse throughout anterior; small amounts of blood orally; ET secretions none. GI: right nare NGT clamped; last BM 10/16/19 per report small smear. : trent inserted on 09/30/19 for strict I/O. Skin: multiple issues: see charting. IV right IJ TLC inserted on 09/30/19: running Propofol @ 50 mcg; Levo @ 3 mcg; TPN @ 44 ml/hr. Pending: echo for NSTEMI & PT. Will continue to round/reposition as tolerated/perform oral care prn.
[2019-10-16] MEDS: NOREPINEPHRINE 8 MG/250ML KIT 250 ML IV SCH (20:48)
--- NOTE | 2019-10-16 21:00 | NUR ---
Sedation Vacation: Patient is not hemodynamically stable for sedation vacation at this time.
--- NOTE | 2019-10-16 21:30 | NUR ---
Versed restarted related to patient RR in the 30s with frequent episodes of coughing/biting on tubing. Saturations are intermittently in the high 80s to low 90s.
[2019-10-16] MEDS: MIDAZOLAM DRIP 50 mg/50mL 50 ML IV SCH (21:33)
[2019-10-16] MEDS: FAMOTIDINE 20 MG TAB PO SCH (21:34)
--- NOTE | 2019-10-16 23:30 | NUR ---
FiO2 increased by RT from 40% to 60%: Patient sustaining in the high 80s related to coughing/breathing over the vent. Versed restarted at 0 along with propofol maxed @ 50 mcg.
[2019-10-17] VITALS (97 sets, daily range): BP systolic 85–178; BP diastolic 48–85
[2019-10-17] MEDS: InsuLIN REG 1unit/0.01ml Soln (100units/ml) SC SCH ×4 (00:45→18:29)
[2019-10-17] MEDS: PROPOFOL 100 ML IV SCH ×2 (02:05→22:30)
--- NOTE | 2019-10-17 04:00 | NUR ---
FiO2 decreased from 60% to 40%.
[2019-10-17] MEDS: FUROSEMIDE 20 MG/2 ML VIAL IV SCH ×2 (05:01→18:00)
[2019-10-17] MEDS: ACCU-CHEK COMFORT CURVE STRIP VI SCH ×4 (05:09→18:30)
[2019-10-17 06:31] LABS: Basophils # (auto) 0.1 10 ^3/uL (0-0.2); Basophils % (auto) 1.4 % (0.0-2.0); Eosinophils # (auto) 0.1 10 ^3/uL (0-0.8); Eosinophils % (auto) 1.9 % (0.0-7.0); Hematocrit 34.1 % (41.0-53.0); Hemoglobin 11.3 g/dL (13.5-17.5); Lymphocytes # (auto) 0.7 10 ^3/uL (0.4-5.4); Lymphocytes % (auto) 10.4 % (10.0-50.0); Mean Corpuscular Hemoglobin 27.7 pg (28.0-32.0); Mean Corpuscular Volume 83.7 fL (80.0-100.0); Monocytes # (auto) 0.4 10 ^3/uL (0-1.3); Monocytes % (auto) 5.5 % (0.0-12.0); Neutrophils # (auto) 5.3 10 ^3/uL (1.6-8.6); Neutrophils % (auto) 80.8 % (37.0-80.0); Nucleated Red Blood Cells % 0.2 %; Platelet Count (auto) 237 10^3/uL (140-450); Red Blood Cells 4.07 10^6/uL (4.5-5.90); Red Cell Distribution Width 16.9 % (11.8-14.3); White Blood Cell 6.5 10^3/uL (4.4-10.8)
[2019-10-17 06:54] LABS: Potassium 4.4 mmol/L (3.5-5.1)
[2019-10-17] MEDS: MIDAZOLAM DRIP 50 mg/50mL 50 ML IV SCH ×4 (07:00→23:24)
[2019-10-17 07:13] LABS: Albumin 2.5 g/dL (3.4-5.0); BUN/Creatinine Ratio 35.7; Bilirubin, Total 0.8 mg/dL (0.2-1.0); Calcium 8.4 mg/dL (8.5-10.1); Magnesium 2.5 mg/dL (1.6-2.6); Phosphorus 3.6 mg/dL (2.5-4.90); Total Protein 6.5 g/dL (6.4-8.2)
--- NOTE | 2019-10-17 07:35 | NUR ---
Opening Shift Note Assumed care of patient sedated and on AC mechanical ventilation. No S/S of distress/SOB or pain. Bed is in lowest position and locked. Call light within reach. Board updated. Continuous EKG monitoring, continuous pulse oximetry monitoring, and continuous rectal thermometer in place. BP cuff is to right bicep and is set to take BP measurement q 15 minutes. Instructed on POC and to call for assist PRN, will continue to monitor for changes Q1hr and PRN.
[2019-10-17] MEDS: cefTRIAXone 1GM/50ML D5W 50 ML IV SCH (08:03)
--- NOTE | 2019-10-17 08:04 | NUR ---
MD Hardin at bedside. made aware that we are currently unable to turn patient because he is hemodynamically unstable. agreed that patient should not be placed on sedation vacation for CPAP trial today.
--- NOTE | 2019-10-17 08:45 | NUR ---
MD Soler at bedside. No new orders given.
[2019-10-17] MEDS: ALBUTEROL SULF 2.5 MG/0.5ML(0.5%) NEB SOLN NEB SCH ×2 (08:47→15:18)
[2019-10-17] MEDS: IPRATROPIUM BROM 0.5 MG/2.5ML INH SOL NEB SCH ×2 (08:47→15:18)
--- NOTE | 2019-10-17 09:05 | NUR ---
Unable to attempt sedation vacation at this time. BP is currently 100/56. Oxygen saturation is 91% on 40% FiO2, down from 98% after we tony the patient up in bed. Patient's BP drops and oxygen saturation drops to 86-87% when turned. Will notify MD that sedation vacation not attempted.
--- NOTE | 2019-10-17 09:12 | NUR ---
Pharmacist called and requested patient's Diprivan be lowered if possible to prevent increase in patient's AST and ALT levels.
[2019-10-17] MEDS: fentaNYL Drip 2500mCg/250mlNS 250 ML IV SCH (09:46)
[2019-10-17] MEDS: AZITHROMYCIN 500MG/ 250ML 250 ML IV SCH (09:51)
[2019-10-17] MEDS: DexAMETHasone SOD PHOS 4 MG/1ML SDV INJ IV SCH (09:51)
[2019-10-17] MEDS: ZINC SULFATE 220mg CAP or TAB PO SCH (09:51)
[2019-10-17] MEDS: AMIODARONE HCL 200 MG TAB PO SCH ×2 (09:52→22:00)
[2019-10-17] MEDS: BACITRACIN TOP OINT 1 UD PKG TOP SCH (09:52)
[2019-10-17] MEDS: ASCORBIC ACID 500 MG TAB PO SCH ×2 (09:52→22:00)
[2019-10-17] MEDS: ENOXAPARIN SOD 60 MG/0.6 ML SYRINGE SC SCH (09:52)
[2019-10-17] MEDS: LINEZOLID 600MG/300ML 300 ML IV SCH ×2 (10:39→22:00)
--- NOTE | 2019-10-17 10:48 | NUR ---
WOUND CARE NOTE: Wound care in to see patient for reevaluation of wounds and skin integrity monitoring. Patient continue resting in ICU bed in Rm. 112. He's CoVid Positive, intubated, sedated, mechanically ventilated . Patient appears to be in no pain using Mann Silverio Faces Pain Scale. His Luiz score is 8. Skin/wound assessment done with the assistance of patient's nurse, ZAID Zavaleta. Patient continue to display generalized edema. His Rt ear lobe display scabbed abrasion and so his lower lips. ZAID Zavaleta giving patient oral care and applying ointment per MD order. Rt medial hand has resolving blister with brown scab. Rt lateral hand has intact, dry scabbed abrasion vs dry blister. Puncture skin tear noted to his Rt dorsal hand with minimal serous drainage. Patient's L hand digits display intact ecchymosis. His L forearm also has multi ecchymosis and skin tears (0.8x1cm) with minimal sanguinous drainage. Cleansed open skin tears with wound cleanser,patted dry with gauze, applied Thera honey gel and covered with Opti foam gentle dressing. Patient's bilateral dorsal foot developed rashes like, scattered erythema, more prominently to L dorsal foot. ZAID Zavaleta is aware and to notify MD. Unable to assess patient's sacral and back due to desaturation. ZAID Zavaleta reported that patient is not tolerating full turning and so pressure redistribution is done with minimal lifting of bony area and applying pillows. New photograph of mentioned skin issue are taken for reference. Patient tolerated well. RECOMMENDATION: Continuation of all wound care orders prescribed by MD, continue with skin/wound plan of care, continue monitoring by wound care while patient is hospitalized. Addendum: 10/17/19 at 1644 by Celina Regalado RN Amended: Links added.
--- NOTE | 2019-10-17 11:42 | NUR ---
Nutrition Followup Notes Wt: 113.0 kg Pt is in isolation room d/t COVID positive. Pt continues to be intubated sedated with propofol @ 34.589 ml/hr providing 912 kcal from lipids. Pt continues to be NPO receiving TPN nutrition support 44ml/hr, providing 105g proteins, 920 kcals, and 500 kcal NPCs. Pt with inadequate energy intake from PN support as it meets 41% to 53% of est caloric needs while TPN and propofol together provide 88-114% of energy needs. Protein intake from PN support is adequate as it meets 105% to 130% protein needs. Pt with no noted distress per RN doc. Will continue to monitor PO status, skin status, pertinent labs and weight trends. Will f/u in 2-3 days. Est energy needs 6687-5663 kcal (14-18 kcal/kg BW 115.298kg) , Est protein needs 69-86g (0.6-0.75g/kg BW 115.289 kg, r/t elevated RFT, no HD). Will reassess prn. LABS: BUN 35H, Gluc 232H, Alb 2.5L GI: Pt had 1 bm 10/08 per RN doc. Pt with 230 ml of gastric stool 10/12 BS: 8 high risk. Please refer to wound assessment report for full details. PES: 1) Altered nutrition related lab values r.t current chronic medical condition aeb elevated RFTs, hyperglycemia, severe hypoalb Consider adding Nephrovite and Vit C 500mg BID for wound healing Recommendation: 1) Advance TPN to meet >75% of needs if propofol rate decreases 2) Consider Glucerna at 45 ml/hr on current rate of propofol 3) Advance diet as medically feasible to Renal Specific 70g if pt is not on HD 4) F/u 2-3 days
--- NOTE | 2019-10-17 12:45 | NUR ---
Increased Levophed to 7 mcg/min. Patient's BP is 97/59 and oxygen saturation is steady at 88-89% on 40% FiO2. Will continue to assess.
--- NOTE | 2019-10-17 14:00 | NUR ---
Decreased Levophed to 5 mcg/min. Patient's BP is 122/61. Will continue to assess.
[2019-10-17] MEDS: ACETYLCYSTEINE 20%(200MG/ML) SOL 4ML IN SCH (15:23)
--- NOTE | 2019-10-17 16:00 | NUR ---
Decreased Diprovan to 20 mcg/kg/min and increased Fentanyl to 50 mcg/min in an attempt to decrease Diprovan usage, per pharmacy request. Will continue to monitor.
--- NOTE | 2019-10-17 18:50 | NUR ---
Spoke to Sasha and gave a brief update on plan of care after confirming patient's password. Sasha would like to speak to hematology nurse educator when they round in AM. Will endorse to mine shifter.
[2019-10-17] MEDS ORDERED: TPN*HIGH CONC* PER PHARMACY IV NR ×9 (20:00)
--- NOTE | 2019-10-17 20:00 | NUR ---
Opening Shift Note: Patient is intubated/sedated. ET size 8.0/24 @ lip. Vent settings: AC rate 14; vT 600; FiO2 40%; PEEP 8. Neuro: pupils are 5 mm in size/sluggish; flaccid extremities; + cough/gag. Cardio: NSR 80s-90s; SBPS 90s-100s; radial & DP pulses weak but palpable. Respiratory: lung sounds diminished throughout anterior; small amounts of blood orally; ET secretions none. GI: right nare NGT clamped; last BM 10/16/19 per report small smear. : trent inserted on 09/30/19 for strict I/O. Skin: multiple issues: see charting. IV right IJ TLC inserted on 09/30/19: running Propofol @ 20 mcg; Levo @ 5 mcg; TPN @ 55 ml/hr; Versed @ 15; Fentanyl @ 50. Pending: echo for NSTEMI & PT. Isolation precautions in place for positive COVID. Will continue to round/reposition as tolerated/perform oral care prn.
--- NOTE | 2019-10-17 21:00 | NUR ---
Sedation Vacation held at this time related to patient's unstable hemodynamic status.
[2019-10-17] MEDS: INSULIN LANTUS (GLARGINE) 1 /0.01ml (100units/ml) SC SCH (22:00)
[2019-10-17] MEDS: FAMOTIDINE 20 MG TAB PO SCH (22:00)
[2019-10-17] MEDS: NOREPINEPHRINE 8 MG/250ML KIT 250 ML IV SCH (22:30)
--- NOTE | 2019-10-17 22:30 | NUR ---
All IV tubing changed per protocol.
[2019-10-18] VITALS (96 sets, daily range): BP systolic 88–136; BP diastolic 49–75
[2019-10-18] MEDS: ACCU-CHEK COMFORT CURVE STRIP VI SCH ×5 (00:27→23:14)
[2019-10-18] MEDS: InsuLIN REG 1unit/0.01ml Soln (100units/ml) SC SCH ×5 (00:29→23:13)
[2019-10-18] MEDS: PROPOFOL 100 ML IV SCH ×3 (00:49→22:17)
--- NOTE | 2019-10-18 00:49 | NUR ---
Problems with oxygen saturation RT paged related to patient oxygen saturation sustaining in the low 80s on 50% FiO2. Patient presents with significant accessory muscle use to breath/breathing significantly over the ventilator RR 30s/frequent coughing/unable to pull volume. Sedation was increased to promote ventilator synchrony (fentanyl and propofol); levophed was increased related to SBP sustaining into the 80s. FiO2 was increased to 70%. Currently saturations are in the mid 90s after changes made. Addendum: 10/18/19 at 0350 by PIETRO SHANNON RN Wrong Time: 023
--- NOTE | 2019-10-18 01:19 | NUR ---
FiO2 increased from 40 to 50% related to oxygen saturation sustaining in the mid 80s.
[2019-10-18 05:29] LABS: Basophils # (auto) 0.1 10 ^3/uL (0-0.2); Basophils % (auto) 0.8 % (0.0-2.0); Eosinophils # (auto) 0.2 10 ^3/uL (0-0.8); Eosinophils % (auto) 2.3 % (0.0-7.0); Hematocrit 35.2 % (41.0-53.0); Hemoglobin 11.6 g/dL (13.5-17.5); Lymphocytes # (auto) 0.7 10 ^3/uL (0.4-5.4); Mean Corpuscular Hemoglobin 27.7 pg (28.0-32.0); Mean Corpuscular Hgb Conc. 32.9 g/dL (32.0-36.0); Mean Corpuscular Volume 84.1 fL (80.0-100.0); Monocytes # (auto) 0.4 10 ^3/uL (0-1.3); Monocytes % (auto) 4.3 % (0.0-12.0); Neutrophils # (auto) 7.9 10 ^3/uL (1.6-8.6); Neutrophils % (auto) 84.6 % (37.0-80.0); Nucleated Red Blood Cells % 0.5 %; Platelet Count (auto) 264 10^3/uL (140-450); Red Blood Cells 4.19 10^6/uL (4.5-5.90); Red Cell Distribution Width 16.8 % (11.8-14.3); White Blood Cell 9.3 10^3/uL (4.4-10.8)
[2019-10-18] MEDS: FUROSEMIDE 20 MG/2 ML VIAL IV SCH ×2 (05:41→18:03)
[2019-10-18 05:50] LABS: Albumin 2.6 g/dL (3.4-5.0); Calcium 8.6 mg/dL (8.5-10.1); Magnesium 2.4 mg/dL (1.6-2.6); Potassium 4.7 mmol/L (3.5-5.1)
[2019-10-18 05:54] LABS: BUN/Creatinine Ratio 44.2; Bilirubin, Total 0.8 mg/dL (0.2-1.0); Phosphorus 5.1 mg/dL (2.5-4.90); Total Protein 7.1 g/dL (6.4-8.2)
[2019-10-18] MEDS: IPRATROPIUM BROM 0.5 MG/2.5ML INH SOL NEB SCH ×3 (06:45→22:00)
[2019-10-18] MEDS: ALBUTEROL SULF 2.5 MG/0.5ML(0.5%) NEB SOLN NEB SCH ×3 (06:45→22:00)
[2019-10-18] MEDS: ACETYLCYSTEINE 20%(200MG/ML) SOL 4ML IN SCH ×3 (06:45→22:01)
--- NOTE | 2019-10-18 07:21 | NUR ---
REPORT RECEIVED FROM SQUASH CENTRE MANAGER RN
[2019-10-18] MEDS: cefTRIAXone 1GM/50ML D5W 50 ML IV SCH (07:39)
--- NOTE | 2019-10-18 08:01 | NUR ---
PATIENT NOT TOLERATING TURNING 02 SATURATIONS AND BLOOD PRESSURE DROPS WITH MINIMAL MOVEMENT.
[2019-10-18] MEDS: fentaNYL Drip 2500mCg/250mlNS 250 ML IV SCH ×2 (08:29→22:20)
[2019-10-18] MEDS: LINEZOLID 600MG/300ML 300 ML IV SCH ×2 (08:29→22:23)
--- NOTE | 2019-10-18 09:00 | NUR ---
SEDATION VACATION HELD AT THIS TIME PATIENT HEMODYNAMICALLY UNSTABLE FOR SEDATION HOLIDAY AT THIS TIME Addendum: 10/18/19 at 12 by Caio Moody RN Amended: Links added.
[2019-10-18] MEDS: BACITRACIN TOP OINT 1 UD PKG TOP SCH (09:43)
[2019-10-18] MEDS: DexAMETHasone SOD PHOS 4 MG/1ML SDV INJ IV SCH (09:43)
[2019-10-18] MEDS: ENOXAPARIN SOD 60 MG/0.6 ML SYRINGE SC SCH (09:43)
[2019-10-18] MEDS: ZINC SULFATE 220mg CAP or TAB PO SCH (09:43)
[2019-10-18] MEDS: AMIODARONE HCL 200 MG TAB PO SCH ×2 (09:43→22:38)
[2019-10-18] MEDS: ASCORBIC ACID 500 MG TAB PO SCH ×2 (09:43→22:38)
--- NOTE | 2019-10-18 09:59 | NUR ---
DR. CRAMER AT BEDSIDE
--- NOTE | 2019-10-18 10:04 | NUR ---
DR. MAGUIRE AT [facility]
[2019-10-18] MEDS: AZITHROMYCIN 500MG/ 250ML 250 ML IV SCH (10:23)
[2019-10-18] MEDS ORDERED: DEXTROSE (50%) 50ML SYRG IV SCH (12:00)
[2019-10-18] MEDS: NOREPINEPHRINE 8 MG/250ML KIT 250 ML IV SCH (12:59)
[2019-10-18] MEDS: MIDAZOLAM DRIP 50 mg/50mL 50 ML IV SCH ×3 (14:24→22:17)
[2019-10-18] MEDS: TPN*HIGH CONC* PER PHARMACY IV NR ×9 (20:10)
--- NOTE | 2019-10-18 20:20 | NUR ---
OPEN NOTES Received patient sedated with IV Propofol, Versed and Fentanyl - see IV spreadsheet Pupils both sluggishly reactive to light, cough and gag noted. No limb movement seen. Intubated and ventilated on AC mode, Fio2 50%. Suctioned secretions - orally noted some blood Oral care done. scabs noted on the lip. VS stable. received On IV Levophed at 7mcg/min - will titrate Right nares NGT - clamped. Patient NPO except meds. On IV TPN Hernandez catheter draining to yellowish output with sediments. Skin noted to have multiple skin tear and pressure sore - refer wound chart Both feet noted to have rashes Full assessment done- refer interventions
--- NOTE | 2019-10-18 20:30 | NUR ---
UNABLE TO FULLY TURN PATIENT TO SIDES PATIENT'S SATURATIONS FLUCTUATING 91-95% PATIENT PLACED ON LATERAL TURN ASSIST ON THE BED WILL CONTINUE TO MONITOR
--- NOTE | 2019-10-18 21:00 | NUR ---
sedation vacation not done
[2019-10-18] MEDS: FAMOTIDINE 20 MG TAB PO SCH (22:38)
--- NOTE | 2019-10-18 22:45 | NUR ---
CALLED BLOOD BANK RE: PLASMA NOT AVAILABLE YET
[2019-10-18] MEDS: INSULIN LANTUS (GLARGINE) 1 /0.01ml (100units/ml) SC SCH (23:12)
--- NOTE | 2019-10-18 23:30 | NUR ---
CENTRAL LINE DRESSING CENTRAL LINE DRESSING CHANGED ASEPTICALLY NO ACTIVE BLEEDING NOTED WILL CONTINUE TO MONITOR
[2019-10-19] VITALS (101 sets, daily range): BP systolic 73–122; BP diastolic 43–74
[2019-10-19] MEDS: MIDAZOLAM DRIP 50 mg/50mL 50 ML IV SCH ×5 (02:28→20:35)
[2019-10-19] MEDS: NOREPINEPHRINE 8 MG/250ML KIT 250 ML IV SCH ×2 (03:40→14:22)
--- NOTE | 2019-10-19 04:22 | NUR ---
PAGED/CALLED PULCRISTINE TALKED TO DR. GONZALEZ OVER THE PHONE. INFORMED HIM THAT PATIENT'S PIP HIGH 40-50 RT TALKED TO HIM WELL. ORDERS RECEIVED
--- NOTE | 2019-10-19 05:10 | NUR ---
HYGIENE CLEANED FRONT PART OF THE PATIENT WITH CHG WIPES GOWN CHANGED. ORAL CARE DONE UNABLE TO TURN - PATIENT DESATURATES TO LOW 88%
[2019-10-19] MEDS: ACCU-CHEK COMFORT CURVE STRIP VI SCH ×4 (05:33→23:09)
[2019-10-19] MEDS: InsuLIN REG 1unit/0.01ml Soln (100units/ml) SC SCH ×4 (05:35→23:10)
[2019-10-19] MEDS: FUROSEMIDE 20 MG/2 ML VIAL IV SCH ×2 (05:36→18:00)
[2019-10-19] MEDS: IPRATROPIUM BROM 0.5 MG/2.5ML INH SOL NEB SCH ×3 (05:39→22:00)
[2019-10-19] MEDS: ALBUTEROL SULF 2.5 MG/0.5ML(0.5%) NEB SOLN NEB SCH ×3 (05:40→22:00)
--- NOTE | 2019-10-19 05:40 | NUR ---
DESATURATION PATIENT'S SATS DROPPED TO LOW 86% RT NOTIFIED
[2019-10-19] MEDS: PROPOFOL 100 ML IV SCH ×2 (05:41→09:29)
[2019-10-19] MEDS: ACETYLCYSTEINE 20%(200MG/ML) SOL 4ML IN SCH ×3 (05:41→22:00)
[2019-10-19 05:56] LABS: Basophils # (auto) 0 10 ^3/uL (0-0.2); Basophils % (auto) 0.8 % (0.0-2.0); Eosinophils # (auto) 0.2 10 ^3/uL (0-0.8); Eosinophils % (auto) 3.1 % (0.0-7.0); Hematocrit 32.5 % (41.0-53.0); Hemoglobin 10.7 g/dL (13.5-17.5); Lymphocytes # (auto) 0.6 10 ^3/uL (0.4-5.4); Lymphocytes % (auto) 9.1 % (10.0-50.0); Mean Corpuscular Hgb Conc. 32.8 g/dL (32.0-36.0); Mean Corpuscular Volume 85.2 fL (80.0-100.0); Monocytes # (auto) 0.3 10 ^3/uL (0-1.3); Monocytes % (auto) 5.4 % (0.0-12.0); Neutrophils # (auto) 5.1 10 ^3/uL (1.6-8.6); Neutrophils % (auto) 81.6 % (37.0-80.0); Nucleated Red Blood Cells % 0.8 %; Platelet Count (auto) 177 10^3/uL (140-450); Red Blood Cells 3.81 10^6/uL (4.5-5.90); Red Cell Distribution Width 16.3 % (11.8-14.3); White Blood Cell 6.3 10^3/uL (4.4-10.8)
[2019-10-19 06:11] LABS: Albumin 2.6 g/dL (3.4-5.0); Calcium 8.6 mg/dL (8.5-10.1); Potassium 3.8 mmol/L (3.5-5.1)
[2019-10-19 06:19] LABS: Bilirubin, Total 0.7 mg/dL (0.2-1.0); Total Protein 6.6 g/dL (6.4-8.2)
[2019-10-19 06:43] LABS: Magnesium 2.3 mg/dL (1.6-2.6); Phosphorus 3.4 mg/dL (2.5-4.90)
--- NOTE | 2019-10-19 06:50 | NUR ---
CALLED BLOOD BANK TO FOLLOW UP ON THE CONVALESCENT PLASMA STILL PENDING DELIVERY
--- NOTE | 2019-10-19 07:00 | NUR ---
REPORT REPORT GIVEN TO ZAID PHILLIPS
--- NOTE | 2019-10-19 07:30 | NUR ---
REPORT REPORT RECEIVED FROM SCOTTIE MAR, CARE ASSUMED. PT RESTING, NO DISTRESS NOTED. VITALS REMAINING STABLE AT THIS TIME.
--- NOTE | 2019-10-19 08:25 | NUR ---
INITIAL CONTACT PHYSICAL ASSESSMENT COMPLETE. PT OBSERVED RESTING IN BED, INTUBATED ON VENTILATOR. TOLERATING VENTILATION WELL AT THIS TIME, NO DISTRESS NOTED. AFEBRILE. PULSES PALPABLE BILATERAL RADIAL AND PEDAL. SINUS RHYTHM NOTED ON BEDSIDE MONITOR. SCD'S ON BILATERAL EXTREMITIES. OXYGEN SATURATION 92-94%. PT INTERMITTENTLY USING ABDOMINAL MUSCLE FOR VENTILATION. RIGHT NARE NGT PRESENT, PATENT, AND CLAMPED AT THIS TIME. DYE CATHETER PATENT AND SECURED BELOW BLADDER. RIGHT IJ TLC, DRESSING IS CDI. SEE SKIN/WOUND ASSESSMENT. PT ISOLATED FOR COVID19. BED LOCKED IN LOWEST POSITION, ALARMS IN PLACE. PT ON CONTINUOUS ROTATION TURNING SCHEDULE. WILL CONTINUE TO MONITOR.
--- NOTE | 2019-10-19 09:00 | NUR ---
SEDATION VACATION SEDATION VACATION HELD AT THIS TIME DUE TO INCREASED FIO2 REQUIREMENT AND EPISODE OF DESATURATION.
--- NOTE | 2019-10-19 09:30 | NUR ---
FAMILY PT DAUGHTER KATHI CALLED FOR UPDATE. PASSWORD PROVIDED. UPDATED ON STATUS AND PLAN OF CARE.
[2019-10-19] MEDS: cefTRIAXone 1GM/50ML D5W 50 ML IV SCH (09:34)
[2019-10-19] MEDS: AZITHROMYCIN 500MG/ 250ML 250 ML IV SCH (09:37)
--- NOTE | 2019-10-19 11:13 | NUR ---
Nutrition Followup Notes Wt: 111.9 kg Pt is in isolation room d/t COVID positive. Pt continues to be intubated sedated with propofol @ 13.86ml/hr providing 364 kcal from lipids. Pt continues to be NPO receiving TPN nutrition support 57ml/hr, providing 130g proteins, 998 kcals, and 478 kcal NPCs. Pt with inadequate energy intake from PN support as it meets 65-84% of est caloric needs while TPN and propofol together provide 151-188% of energy needs. Est energy needs 2873-9920 kcal (14-18 kcal/kg BW 115.298kg), Est protein needs 69-86g (0.6-0.75g/kg BW 115.289 kg, r/t elevated RFT, no HD). Will reassess prn. LABS: BUN 51 H, GLU 174 H ALB 2.6 L GI: Pt had 1 bm 10/08 per RN doc. BS: 9 high risk. Please refer to wound assessment report for full details. PES: 1) Altered nutrition related lab values r.t current chronic medical condition aeb elevated RFTs, hyperglycemia, severe hypoalb Consider adding Nephrovite and Vit C 500mg BID for wound healing Recommendation: 1) Advance TPN to meet >75% of needs if propofol rate decreases 2) Consider Glucerna at 45 ml/hr on current rate of propofol 3) Advance diet as medically feasible to Renal Specific 70g if pt is not on HD 4) F/u 2-3 days
[2019-10-19] MEDS: ASCORBIC ACID 500 MG TAB PO SCH ×2 (11:45→22:51)
[2019-10-19] MEDS: AMIODARONE HCL 200 MG TAB PO SCH ×2 (11:45→22:51)
[2019-10-19] MEDS: ZINC SULFATE 220mg CAP or TAB PO SCH (11:45)
[2019-10-19] MEDS: ENOXAPARIN SOD 60 MG/0.6 ML SYRINGE SC SCH (11:45)
--- NOTE | 2019-10-19 11:50 | NUR ---
MD VISIT DR.YELAMANCHILI LOPEZ. ORDERED FOR RATE AND I-TIME CHANGE ON VENTILATOR. SEBASTIEN RT PAGED TO BEDSIDE. VENT CHANGES MADE. OXYGEN SATURATION IMPROVING. ABG ORDERED 2 HOURS POST VENT CHANGES. WILL NOTIFY MD OF RESULTS.
[2019-10-19] MEDS: BACITRACIN TOP OINT 1 UD PKG TOP SCH (11:52)
[2019-10-19] MEDS: LINEZOLID 600MG/300ML 300 ML IV SCH ×2 (12:37→22:52)
[2019-10-19] MEDS: DexAMETHasone SOD PHOS 4 MG/1ML SDV INJ IV SCH (12:37)
--- NOTE | 2019-10-19 14:19 | NUR ---
G SEBASTIEN RT NOTIFIED OF ABG RESULTS S/P VENTILATION CHANGES.
[2019-10-19] MEDS: fentaNYL Drip 2500mCg/250mlNS 250 ML IV SCH (14:31)
--- NOTE | 2019-10-19 17:30 | NUR ---
CARES/ELIMINATION COMPLETE LINEN CHANGE AND BED BATH GIVEN. BATH HAD LARGE LIQUID BROWN BOWEL MOVEMENT. RIGO CARE COMPLETE. SKIN REASSESSMENT PERFORMED. PATIENT REPOSITIONED ON SIDE. WOUND CARE COMPLETE. OPTIFOAM PLACED ON SACRUM. PT TOLERATED ACTIVITY WELL, NO DESATURATION NOTED. VITAL SIGNS REMAINING STABLE AT THIS TIME. BED LOCKED IN LOWEST POSITION, ALARMS IN PLACE.
--- NOTE | 2019-10-19 18:30 | NUR ---
FAMILY PT DAUGHTER KATHI CALLED FOR UPDATE. PASSWORD PROVIDED. UPDATED ON STATUS AND PLAN OF CARE.
--- NOTE | 2019-10-19 19:17 | NUR ---
REPORT REPORT GIVEN TO SCOTTIE MAR, CARE ENDORSED.
--- NOTE | 2019-10-19 19:30 | NUR ---
OPEN NOTES Received patient sedated with IV Propofol, Versed and Fentanyl - see IV spreadsheet Pupils both sluggishly reactive to light, cough and gag noted. No limb movement seen. Intubated and ventilated on PC mode, Fio2 60%. Suctioned secretions - orally noted some blood SR, Still On IV Levophed Right nares NGT - clamped. Patient NPO except meds. On IV TPN Hernandez catheter draining to yellowish output with sediments. Skin noted to have multiple skin tear and pressure sore - refer wound chart Lip scab slightly bleeding - applied pressure Both feet noted to have rashes Full assessment done- refer interventions
[2019-10-19] MEDS: TPN*HIGH CONC* PER PHARMACY IV NR ×9 (19:37)
[2019-10-19] MEDS ORDERED: TPN*HIGH CONC* PER PHARMACY IV NR ×10 (20:00)
--- NOTE | 2019-10-19 21:01 | NUR ---
PATIENT BREATHS 29-30/MIN WHEN SEDATION DECREASED Addendum: 10/19/19 at 2102 by Rayne Spivey RN Amended: Links added.
[2019-10-19] MEDS: FAMOTIDINE 20 MG TAB PO SCH (22:51)
[2019-10-19] MEDS: INSULIN LANTUS (GLARGINE) 1 /0.01ml (100units/ml) SC SCH (23:08)
[2019-10-20] VITALS (98 sets, daily range): BP systolic 87–138; BP diastolic 44–72
[2019-10-20] MEDS: MIDAZOLAM DRIP 50 mg/50mL 50 ML IV SCH ×6 (00:07→23:28)
--- NOTE | 2019-10-20 03:30 | NUR ---
HYGIENE/DRESSING CHANGED SPONGE BATH DONE. LINENS CHANGED. ORAL CARE DONE. REPOSITIONED SKIN TEAR DRESSING CHANGED. CLEANED WITH NS AND COVERED WITH OPTIFOAM GENTLE RIGHT EAR CLEANED
[2019-10-20 04:28] LABS: Basophils # (auto) 0.1 10 ^3/uL (0-0.2); Basophils % (auto) 0.8 % (0.0-2.0); Eosinophils # (auto) 0.1 10 ^3/uL (0-0.8); Hematocrit 32.8 % (41.0-53.0); Hemoglobin 10.8 g/dL (13.5-17.5); Lymphocytes # (auto) 0.8 10 ^3/uL (0.4-5.4); Lymphocytes % (auto) 9.7 % (10.0-50.0); Mean Corpuscular Hemoglobin 27.8 pg (28.0-32.0); Mean Corpuscular Hgb Conc. 32.9 g/dL (32.0-36.0); Mean Corpuscular Volume 84.4 fL (80.0-100.0); Monocytes # (auto) 0.5 10 ^3/uL (0-1.3); Monocytes % (auto) 6.8 % (0.0-12.0); Neutrophils # (auto) 6.6 10 ^3/uL (1.6-8.6); Neutrophils % (auto) 81.7 % (37.0-80.0); Nucleated Red Blood Cells % 0.8 %; Platelet Count (auto) 193 10^3/uL (140-450); Red Blood Cells 3.88 10^6/uL (4.5-5.90); Red Cell Distribution Width 16.2 % (11.8-14.3)
[2019-10-20] MEDS: NOREPINEPHRINE 8 MG/250ML KIT 250 ML IV SCH (04:39)
[2019-10-20 04:44] LABS: Albumin 2.5 g/dL (3.4-5.0); Calcium 8.4 mg/dL (8.5-10.1); Magnesium 2.1 mg/dL (1.6-2.6); Potassium 3.7 mmol/L (3.5-5.1)
[2019-10-20 04:46] LABS: BUN/Creatinine Ratio 59.3
[2019-10-20 04:48] LABS: Bilirubin, Total 0.8 mg/dL (0.2-1.0); Phosphorus 2.4 mg/dL (2.5-4.90); Total Protein 6.6 g/dL (6.4-8.2)
[2019-10-20] MEDS: PROPOFOL 100 ML IV SCH ×2 (06:14→18:29)
[2019-10-20] MEDS: ACCU-CHEK COMFORT CURVE STRIP VI SCH ×3 (06:20→17:58)
[2019-10-20] MEDS: InsuLIN REG 1unit/0.01ml Soln (100units/ml) SC SCH ×3 (06:29→17:58)
[2019-10-20] MEDS: ACETYLCYSTEINE 20%(200MG/ML) SOL 4ML IN SCH ×3 (06:35→22:35)
[2019-10-20] MEDS: IPRATROPIUM BROM 0.5 MG/2.5ML INH SOL NEB SCH ×3 (06:36→22:35)
[2019-10-20] MEDS: ALBUTEROL SULF 2.5 MG/0.5ML(0.5%) NEB SOLN NEB SCH ×3 (06:36→22:35)
[2019-10-20] MEDS: FUROSEMIDE 20 MG/2 ML VIAL IV SCH (06:41)
--- NOTE | 2019-10-20 07:00 | NUR ---
REPORT REPORT GIVEN TO ZAID PHILLIPS
--- NOTE | 2019-10-20 07:29 | NUR ---
REPORT REPORT RECEIVED FROM SCOTTIE MAR, CARE ASSUMED. PT RESTING, NO DISTRESS NOTED. VITALS REMAINING STABLE AT THIS TIME.
--- NOTE | 2019-10-20 08:00 | NUR ---
INITIAL CONTACT PHYSICAL ASSESSMENT COMPLETE. PT OBSERVED RESTING IN BED, INTUBATED ON VENTILATOR. TOLERATING VENTILATION WELL AT THIS TIME. AFEBRILE. PULSES PALPABLE BILATERAL RADIAL AND PEDAL. SINUS RHYTHM NOTED ON BEDSIDE MONITOR. SCD'S ON BILATERAL EXTREMITIES. OXYGEN SATURATION 94%. NO SIGNS OF DISTRESS NOTED. RIGHT NARE NGT PRESENT, PATENT, AND CLAMPED AT THIS TIME. DYE CATHETER PATENT AND SECURED BELOW BLADDER. RIGHT IJ TLC, DRESSING IS CDI. SEE SKIN/WOUND ASSESSMENT. PT ISOLATED FOR COVID19. BED LOCKED IN LOWEST POSITION, ALARMS IN PLACE. PT ON CONTINUOUS ROTATION TURNING SCHEDULE. WILL CONTINUE TO MONITOR.
[2019-10-20] MEDS: cefTRIAXone 1GM/50ML D5W 50 ML IV SCH (09:06)
[2019-10-20] MEDS: fentaNYL Drip 2500mCg/250mlNS 250 ML IV SCH (09:27)
[2019-10-20] MEDS: LINEZOLID 600MG/300ML 300 ML IV SCH (09:45)
--- NOTE | 2019-10-20 10:10 | NUR ---
ECTOPY PT HAVING BIGEMINAL PAC'S AND PVC'S. SINUS RHYTHM 80'S. NO OTHER ECTOPY. VITAL SIGNS REMAINING STABLE AT THIS TIME. WILL CONTINUE TO MONITOR.
--- NOTE | 2019-10-20 10:30 | NUR ---
FAMILY PATIENT DAUGHTER KATHI CALLED. PASSWORD PROVIDED. UPDATED ON PLAN AND STATUS.
--- NOTE | 2019-10-20 11:00 | NUR ---
MD VISIT DR.MOMIN LOPEZ. AWARE OF LABS, IV MEDICATIONS, AND VENTILATOR SETTINGS. NO NEW ORDERS RECEIVED AT THIS TIME.
[2019-10-20] MEDS: ASCORBIC ACID 500 MG TAB PO SCH ×2 (11:03→22:00)
[2019-10-20] MEDS: ZINC SULFATE 220mg CAP or TAB PO SCH (11:03)
[2019-10-20] MEDS: DexAMETHasone SOD PHOS 4 MG/1ML SDV INJ IV SCH (11:03)
[2019-10-20] MEDS: AMIODARONE HCL 200 MG TAB PO SCH ×2 (11:04→22:00)
[2019-10-20] MEDS: BACITRACIN TOP OINT 1 UD PKG TOP SCH (11:04)
[2019-10-20] MEDS: ENOXAPARIN SOD 40 MG/0.4 ML SYRINGE SC SCH (11:04)
--- NOTE | 2019-10-20 11:56 | NUR ---
MD VISIT ROUNDING. NO NEW ORDERS RECEIVED.
--- NOTE | 2019-10-20 15:00 | NUR ---
CARES/ELIMINATION PARTIAL LINEN CHANGE COMPLETE. RIGO CARE PERFORMED. SKIN REASSESSMENT PERFORMED. PATIENT REPOSITIONED ON SIDE. PT TOLERATED ACTIVITY WELL, NO DESATURATION NOTED. VITAL SIGNS REMAINING STABLE AT THIS TIME. BED LOCKED IN LOWEST POSITION, ALARMS IN PLACE.
--- NOTE | 2019-10-20 15:55 | NUR ---
TACHYPNEA AFTER PT REPOSITIONED IN BED, RESPIRATORY RATE STAYING ELEVATED 36-40. SEDATION INCREASED TO DECREASE TACHYPNEA. OXYGEN SATURATION MAINTAINING GREATER THAN 90%.
[2019-10-20] MEDS: FUROSEMIDE 40 MG/4 ML VIAL IV SCH (18:30)
--- NOTE | 2019-10-20 18:49 | NUR ---
Respiratory note: VENT CHECK DONE BY PTS ROOM DOOR DUE TO COVID-19 PRECAUTIONS. RECEIVED PT ON VENT V5, VENT CONNECTED TO RED OUTLET AND O2 SOURCE. ALARMS ARE SET AND AUDIBLE. AMBU BAG AND MASK AT BEDSIDE. PTS CURRENT BODY TEMP READS 98.6F. NO CHANGES MADE WILL CONTINUE TO MONITOR Q2H.
--- NOTE | 2019-10-20 19:39 | NUR ---
REPORT REPORT GIVEN TO NATHALIE MAR, CARE ENDORSED.
--- NOTE | 2019-10-20 19:40 | NUR ---
Received report from day shift RN. Assumed care of pt at this time. VSS
[2019-10-20] MEDS ORDERED: TPN*HIGH CONC* PER PHARMACY IV NR ×10 (20:00)
--- NOTE | 2019-10-20 20:14 | NUR ---
Respiratory note: VENT CHECK DONE BY PTS ROOM DOOR DUE TO COVID-19 PRECAUTIONS. NO VENT CHANGES MADE OR NEEDED AT THIS TIME. WILL CONTINUE TO MONITOR.
[2019-10-20] MEDS: FAMOTIDINE 20 MG TAB PO SCH (22:00)
[2019-10-20] MEDS: INSULIN LANTUS (GLARGINE) 1 /0.01ml (100units/ml) SC SCH (22:00)
--- NOTE | 2019-10-20 22:35 | NUR ---
Respiratory note: AT BEDSIDE IN FULL PPE FOR COVID-19 PRECAUTIONS. BS ARE COURSE SXD VIA ETT FOR THICK GREENISH/STEINBERG SECRETIONS. AEROSOL TX GIVEN VIA AEROGEN, NO ADVERSE REACTION NOTED. CURRENT BODY TEMP READS 98.6F. WILL CONTINUE TO MONITOR.
[2019-10-21] VITALS (80 sets, daily range): BP systolic 80–124; BP diastolic 45–71
--- NOTE | 2019-10-21 00:24 | NUR ---
Respiratory note: VENT CHECK DONE FROM DOOR DUE TO COVID-19 PRECAUTIONS. CURRENT BODY TEMP READS 98.1F. WILL CONTINUE TO MONITOR.
--- NOTE | 2019-10-21 02:18 | NUR ---
Respiratory note: VENT CHECK DONE FROM DOOR DUE TO COVID-19 PRECAUTIONS. CURRENT BODY TEMP READS 98.1F. WILL CONTINUE TO MONITOR.
[2019-10-21] MEDS: FUROSEMIDE 40 MG/4 ML VIAL IV SCH ×2 (05:48→17:33)
[2019-10-21] MEDS: ACCU-CHEK COMFORT CURVE STRIP VI SCH ×4 (05:49→17:34)
[2019-10-21] MEDS: InsuLIN REG 1unit/0.01ml Soln (100units/ml) SC SCH ×4 (05:49→17:34)
[2019-10-21] MEDS: fentaNYL Drip 2500mCg/250mlNS 250 ML IV SCH (05:50)
[2019-10-21] MEDS: ALBUTEROL SULF 2.5 MG/0.5ML(0.5%) NEB SOLN NEB SCH ×3 (06:25→22:36)
[2019-10-21] MEDS: ACETYLCYSTEINE 20%(200MG/ML) SOL 4ML IN SCH ×3 (06:25→22:36)
[2019-10-21] MEDS: IPRATROPIUM BROM 0.5 MG/2.5ML INH SOL NEB SCH ×3 (06:25→22:36)
--- NOTE | 2019-10-21 07:37 | NUR ---
End of Shift Note. Report given to day shift RN.
[2019-10-21] MEDS: DexAMETHasone SOD PHOS 4 MG/1ML SDV INJ IV SCH (08:19)
[2019-10-21] MEDS: ASCORBIC ACID 500 MG TAB PO SCH (08:20)
[2019-10-21] MEDS: AMIODARONE HCL 200 MG TAB PO SCH (08:20)
[2019-10-21] MEDS: ENOXAPARIN SOD 40 MG/0.4 ML SYRINGE SC SCH (08:21)
[2019-10-21] MEDS: ZINC SULFATE 220mg CAP or TAB PO SCH (08:21)
[2019-10-21] MEDS: cefTRIAXone 1GM/50ML D5W 50 ML IV SCH (08:21)
[2019-10-21 09:33] LABS: Basophils # (auto) 0.1 10 ^3/uL (0-0.2); Basophils % (auto) 1.1 % (0.0-2.0); Eosinophils # (auto) 0.2 10 ^3/uL (0-0.8); Eosinophils % (auto) 1.8 % (0.0-7.0); Hematocrit 32.2 % (41.0-53.0); Hemoglobin 10.6 g/dL (13.5-17.5); Lymphocytes # (auto) 0.8 10 ^3/uL (0.4-5.4); Lymphocytes % (auto) 9.3 % (10.0-50.0); Mean Corpuscular Hgb Conc. 32.9 g/dL (32.0-36.0); Mean Corpuscular Volume 84.9 fL (80.0-100.0); Monocytes # (auto) 0.7 10 ^3/uL (0-1.3); Monocytes % (auto) 8.4 % (0.0-12.0); Neutrophils # (auto) 6.8 10 ^3/uL (1.6-8.6); Neutrophils % (auto) 79.4 % (37.0-80.0); Nucleated Red Blood Cells % 1.1 %; Platelet Count (auto) 162 10^3/uL (140-450); Red Cell Distribution Width 16.3 % (11.8-14.3); White Blood Cell 8.6 10^3/uL (4.4-10.8)
[2019-10-21] MEDS: BACITRACIN TOP OINT 1 UD PKG TOP SCH (09:43)
[2019-10-21 09:54] LABS: Albumin 2.4 g/dL (3.4-5.0); Calcium 8.6 mg/dL (8.5-10.1); Magnesium 2.3 mg/dL (1.6-2.6); Potassium 3.7 mmol/L (3.5-5.1)
[2019-10-21 10:00] LABS: Bilirubin, Total 0.8 mg/dL (0.2-1.0); Phosphorus 2.5 mg/dL (2.5-4.90); Pre Albumin 42.1 mg/dL (20.0-40.0); Total Protein 6.4 g/dL (6.4-8.2)
[2019-10-21] MEDS: MIDAZOLAM DRIP 50 mg/50mL 50 ML IV SCH ×2 (10:02→17:45)
[2019-10-21] MEDS: PROPOFOL 100 ML IV SCH (10:05)
[2019-10-21] MEDS: NOREPINEPHRINE 8 MG/250ML KIT 250 ML IV SCH (11:10)
--- NOTE | 2019-10-21 12:18 | NUR ---
Nutrition Followup Notes Wt: 112.0 kg Pt is in isolation room d/t COVID positive. Pt continues to be intubated sedated with propofol @ 3.459 ml/hr providing 91 kcal from lipids. Pt continues to be NPO receiving TPN nutrition support 57ml/hr, providing 130g proteins, 998 kcals, and 478 kcal NPCs. Pt with inadequate energy intake from PN support as it meets 65-84% of est caloric needs while TPN and propofol together provide 151-188% of energy needs. Est energy needs 5416-0354 kcal (14-18 kcal/kg BW 115.298kg), Est protein needs 69-86g (0.6-0.75g/kg BW 115.289 kg, r/t elevated RFT, no HD). Will reassess prn. LABS: BUN 51H, GLUC 199H, Alb 2.5L, Ca 8.4L GI: Pt had 1 BM 10/19 per RN doc. BS: 9 high risk. Please refer to wound assessment report for full details. PES: 1) Altered nutrition related lab values r.t current chronic medical condition aeb elevated RFTs, hyperglycemia, severe hypoalb Consider adding Nephrovite and Vit C 500mg BID for wound healing Recommendation: 1) Advance TPN to meet >75% of needs if propofol rate decreases 2) Consider Glucerna at 45 ml/hr on current rate of propofol 3) Advance diet as medically feasible to Renal Specific 70g if pt is not on HD 4) F/u 2-3 days
[2019-10-21] MEDS: ACETAMINOPHEN 325 MG TAB PO PRN (17:30)
[2019-10-21] MEDS ORDERED: TPN*HIGH CONC* PER PHARMACY IV NR ×10 (20:00)
--- NOTE | 2019-10-21 21:00 | NUR ---
NO SEDATION VACATION PERFORMED AT THIS TIME IT IS INAPPROPRIATE; WILL CONT. TO MONITOR.
--- NOTE | 2019-10-21 22:00 | NUR ---
UPDATED PT. DAUGHTER ON PT. STATUS AND PLAN OF CARE VIA TELEPHONE.
[2019-10-22] VITALS (94 sets, daily range): BP systolic 93–140; BP diastolic 52–75
[2019-10-22] MEDS: FUROSEMIDE 40 MG/4 ML VIAL IV SCH ×2 (06:00→18:01)
[2019-10-22] MEDS: InsuLIN REG 1unit/0.01ml Soln (100units/ml) SC SCH ×5 (06:00→22:56)
[2019-10-22] MEDS: ACCU-CHEK COMFORT CURVE STRIP VI SCH ×5 (06:00→23:42)
[2019-10-22] MEDS: ALBUTEROL SULF 2.5 MG/0.5ML(0.5%) NEB SOLN NEB SCH ×3 (06:36→23:02)
[2019-10-22] MEDS: IPRATROPIUM BROM 0.5 MG/2.5ML INH SOL NEB SCH ×3 (06:36→23:02)
[2019-10-22] MEDS: ACETYLCYSTEINE 20%(200MG/ML) SOL 4ML IN SCH ×3 (06:37→23:03)
[2019-10-22 08:20] LABS: Albumin 2.4 g/dL (3.4-5.0); Calcium 8.5 mg/dL (8.5-10.1); Magnesium 2.3 mg/dL (1.6-2.6); Potassium 3.3 mmol/L (3.5-5.1)
[2019-10-22 08:23] LABS: BUN/Creatinine Ratio 65.8; Phosphorus 3.1 mg/dL (2.5-4.90); Total Protein 6.3 g/dL (6.4-8.2)
--- NOTE | 2019-10-22 08:30 | NUR ---
UPDATED PT. DAUGHTER ON PT. STATUS AND PLAN OF CARE VIA TELEPHONE.
--- NOTE | 2019-10-22 08:47 | NUR ---
DR. Ang CRAMER HERE TO SEE PATIENT. SEE MD NOTES AND EMR FOR ANY NEW ORDERS.
[2019-10-22] MEDS: cefTRIAXone 1GM/50ML D5W 50 ML IV SCH (08:53)
[2019-10-22] MEDS: fentaNYL Drip 2500mCg/250mlNS 250 ML IV SCH ×2 (09:16→18:01)
[2019-10-22] MEDS: AMIODARONE HCL 200 MG TAB PO SCH ×3 (09:56→22:00)
[2019-10-22] MEDS: ENOXAPARIN SOD 40 MG/0.4 ML SYRINGE SC SCH (09:56)
[2019-10-22] MEDS: BACITRACIN TOP OINT 1 UD PKG TOP SCH (09:56)
[2019-10-22] MEDS: ASCORBIC ACID 500 MG TAB PO SCH ×3 (09:56→22:00)
[2019-10-22] MEDS: ZINC SULFATE 220mg CAP or TAB PO SCH (09:56)
[2019-10-22] MEDS: DexAMETHasone SOD PHOS 4 MG/1ML SDV INJ IV SCH (09:56)
[2019-10-22 12:14] LABS: Basophils # (auto) 0.1 10 ^3/uL (0-0.2); Basophils % (auto) 0.9 % (0.0-2.0); Eosinophils # (auto) 0.8 10 ^3/uL (0-0.8); Eosinophils % (auto) 5.9 % (0.0-7.0); Hematocrit 31.5 % (41.0-53.0); Hemoglobin 10.2 g/dL (13.5-17.5); Lymphocytes # (auto) 0.6 10 ^3/uL (0.4-5.4); Lymphocytes % (auto) 4.3 % (10.0-50.0); Mean Corpuscular Hemoglobin 27.7 pg (28.0-32.0); Mean Corpuscular Hgb Conc. 32.4 g/dL (32.0-36.0); Mean Corpuscular Volume 85.6 fL (80.0-100.0); Monocytes # (auto) 0.9 10 ^3/uL (0-1.3); Monocytes % (auto) 6.6 % (0.0-12.0); Neutrophils # (auto) 11.6 10 ^3/uL (1.6-8.6); Neutrophils % (auto) 82.3 % (37.0-80.0); Nucleated Red Blood Cells % 0.6 %; Platelet Count (auto) 170 10^3/uL (140-450); Red Blood Cells 3.68 10^6/uL (4.5-5.90); Red Cell Distribution Width 16.5 % (11.8-14.3); White Blood Cell 14.1 10^3/uL (4.4-10.8)
--- NOTE | 2019-10-22 21:00 | NUR ---
sedation vacation not performed as it is not appropriate
[2019-10-22] MEDS: TPN*HIGH CONC* PER PHARMACY IV NR ×9 (21:55)
[2019-10-22] MEDS: FAMOTIDINE 20 MG TAB PO SCH ×2 (22:00)
[2019-10-22] MEDS: INSULIN LANTUS (GLARGINE) 1 /0.01ml (100units/ml) SC SCH ×2 (22:58)
[2019-10-23] VITALS (102 sets, daily range): BP systolic 91–147; BP diastolic 49–78
[2019-10-23] MEDS: NOREPINEPHRINE 8 MG/250ML KIT 250 ML IV SCH (00:45)
[2019-10-23] MEDS: ACCU-CHEK COMFORT CURVE STRIP VI SCH ×3 (06:00→18:15)
[2019-10-23] MEDS: InsuLIN REG 1unit/0.01ml Soln (100units/ml) SC SCH ×3 (06:00→19:40)
[2019-10-23] MEDS: FUROSEMIDE 40 MG/4 ML VIAL IV SCH ×2 (06:00→19:40)
[2019-10-23] MEDS: ALBUTEROL SULF 2.5 MG/0.5ML(0.5%) NEB SOLN NEB SCH ×3 (06:38→23:02)
[2019-10-23] MEDS: IPRATROPIUM BROM 0.5 MG/2.5ML INH SOL NEB SCH ×3 (06:39→23:02)
[2019-10-23] MEDS: ACETYLCYSTEINE 20%(200MG/ML) SOL 4ML IN SCH ×3 (06:39→23:02)
[2019-10-23 07:27] LABS: Basophils # (auto) 0.2 10 ^3/uL (0-0.2); Basophils % (auto) 1.6 % (0.0-2.0); Eosinophils # (auto) 0.5 10 ^3/uL (0-0.8); Hematocrit 30.2 % (41.0-53.0); Hemoglobin 9.6 g/dL (13.5-17.5); Lymphocytes % (auto) 8.4 % (10.0-50.0); Mean Corpuscular Hemoglobin 27.4 pg (28.0-32.0); Mean Corpuscular Hgb Conc. 31.7 g/dL (32.0-36.0); Mean Corpuscular Volume 86.4 fL (80.0-100.0); Monocytes # (auto) 1.2 10 ^3/uL (0-1.3); Monocytes % (auto) 9.7 % (0.0-12.0); Neutrophils % (auto) 76.3 % (37.0-80.0); Nucleated Red Blood Cells % 1.4 %; Platelet Count (auto) 172 10^3/uL (140-450); Red Blood Cells 3.49 10^6/uL (4.5-5.90); Red Cell Distribution Width 16.7 % (11.8-14.3); White Blood Cell 11.8 10^3/uL (4.4-10.8)
[2019-10-23 07:31] LABS: Potassium 3.7 mmol/L (3.5-5.1)
[2019-10-23 07:46] LABS: Albumin 2.4 g/dL (3.4-5.0); Calcium 8.5 mg/dL (8.5-10.1); Magnesium 2.2 mg/dL (1.6-2.6); Phosphorus 3.4 mg/dL (2.5-4.90); Pre Albumin 36.2 mg/dL (20.0-40.0); Total Protein 6.4 g/dL (6.4-8.2)
--- NOTE | 2019-10-23 08:05 | NUR ---
REPORT REPORT RECEIVED FROM DELVIS RNSAJI. PT IN ISOLATION FOR +COVID. PT INTUBATED AND SEDATED AND ON LEVOPHED FOR BP SUPPORT. VISUALIZED PT THROUGH GLASS DOOR. CONTINUE TO MONITOR.
[2019-10-23] MEDS: PROPOFOL 100 ML IV SCH ×4 (08:13→21:30)
--- NOTE | 2019-10-23 08:40 | NUR ---
MD VISIT DR MAGUIRE HERE AND UPDATED ON THE PT'S CURRENT CONDITION. HE TALKED ABOUT LIKELY NEED FOR THE PT TO BE TRACHED.
--- NOTE | 2019-10-23 08:40 | NUR ---
ASSESSMENT PT IN ISOLATION FOR + COVID. PT INTUBATED AND SEDATED. NO SPONTANEOUS MOVEMENT NOTED. PT WITH VENTILATOR SETTINGS OF PRESSURE CONTROL WITH PRESSURE OF 28, RATE OF 25, PEEP OF 10, AND 75% FIO2. RATE CHANGED TO 28 AND PEEP TO 12, PER MD ORDERS. LUNGS CLEAR . ETT SUCTION FOR THICK CREAMY FLUID. ORAL CARE PROVIDED. PT WITH SCABS AT BOTH CORNERS OF HIS MOUTH FROM EARLIER BLEEDING, PER REPORT. ORAL CARE PROVIDED. BLOOD TINGED FLUID FROM MOUTH. TELE SR 71 WITH INVERTED T WAVE IN LEADS II, III, V, AVF AND DEPRESSED ST IN LEADS II, III, AVF, AND ELEVATED ST IN LEADS AVR AND AVL. PALPABLE PULSES TO ALL EXTREMITIES. SCDS TO BLE. ABD SOFT AND NON TENDER WITH HYPOACTIVE BOWEL SOUNDS. RIGHT NARES NGT WITH + PLACEMENT AND NO RESIDUAL NOTED. DYE CATHETER DRAINING YELLOW URINE WITH SEDIMENT. LAST BM 10/18. SKIN TEARS TO LEFT HAND AND LFA, SKIN FLAP INTACT AND SEALING. SKIN TEARS ALSO TO OUTER EDGE OF RIGHT HAND, TOP OF RIGHT HAND, AND BETWEEN THE RIGHT THUMB AND INDEX FINGER. ALL SKIN TEARS WITH OPTIFOAM DRESSINGS IN PLACE. ALL IVF AND MEDICATIONS INFUSING TO RIJ TLC, SITE BENIGN. RAILS UP X4 AND BED IN LOW POSITION FOR PT SAFETY. CONTINUE TO MONITOR.
--- NOTE | 2019-10-23 08:40 | NUR ---
PT TEACHING PT UNABLE TO BENEFIT FROM PT TEACHING AT THIS TIME HE IS INTUBATED AND SEDATED Addendum: 10/23/19 at 2016 by Lolis La RN Amended: Links added.
--- NOTE | 2019-10-23 09:30 | NUR ---
RT NOTE: Blair LI CAME INTO ICU. NOTIFIED THAT PIP WAS OVER 45 WITH NEW VENT ORDERS AND SPO2 WAS NOW 89 VS 91 PRIOR. INITIALLY ANOTHER SET OF ORDERS WERE GIVEN TO INCREASE PRESSURE TO 30 AND BRING PEEP BACK TO 10 WITH FIO2 INCREASED FROM 75 TO 80. WHILE IN ROOM AND MD OUT OF ROOM, CHANGES WERE MADE WITH NO CHANGE IN EXHALED TIDAL VOLUME OR PIP. FINAL ORDERS GIVEN TO LEAVE PRESSURE SET AT 30 AND DECREASE PEEP TO 8 WHILE INCREASING FIO2 TO 85%. VT INCREASED TO [employer] OF 500, PIP DECREASED TO 40 AND SPO2 SIMEON TO 93%. NO FURTHER CHANGES NOTED AT THIS TIME. REPEAT ABG FOR 1130.
[2019-10-23] MEDS: cefTRIAXone 1GM/50ML D5W 50 ML IV SCH (09:58)
[2019-10-23] MEDS: ASCORBIC ACID 500 MG TAB PO SCH ×2 (10:30→22:30)
[2019-10-23] MEDS: ZINC SULFATE 220mg CAP or TAB PO SCH (10:30)
[2019-10-23] MEDS: AMIODARONE HCL 200 MG TAB PO SCH ×2 (10:30→22:30)
[2019-10-23] MEDS: DexAMETHasone SOD PHOS 4 MG/1ML SDV INJ IV SCH (10:30)
[2019-10-23] MEDS: BACITRACIN TOP OINT 1 UD PKG TOP SCH (10:30)
[2019-10-23] MEDS: ENOXAPARIN SOD 40 MG/0.4 ML SYRINGE SC SCH (10:30)
--- NOTE | 2019-10-23 11:36 | NUR ---
FAMILY RECEIVED A PHONE CALL FROM PT'S DAUGHTER, DENNIS. AFTER VERIFYING PASSWORD, I UPDATED HER AND ANSWERED HER QUESTIONS. I WILL TRY AND HAVE THE MDS CONTACT HER TO GIVE HER AN UPDATE.
--- NOTE | 2019-10-23 12:25 | NUR ---
RT NOTE: CALL MADE TO ICU TO INFORM RN OF NO CRITICAL VALUES ON ABG, BUT THAT PO2 HAD DROPPED 10 POINTS SO TO PLEASE INCREASE FIO2 TO 95% WHEN NEXT IN ROOM.
--- NOTE | 2019-10-23 12:51 | NUR ---
Nutrition Followup Notes Wt: 112.0 kg Pt is in isolation room d/t COVID positive. Pt continues to be intubated sedated with propofol @ 20.754 ml/hr providing 547 kcal from lipids. Pt continues to be NPO receiving TPN nutrition support 63ml/hr, providing 120g proteins, 1313 kcals, and 833 kcal NPCs. Pt with inadequate energy intake from PN support as it meets 139-173% of est caloric needs while TPN and propofol together provide 89-115% of energy needs. Est energy needs 8139-5351 kcal (14-18 kcal/kg BW 115.298kg), Est protein needs 69-86g (0.6-0.75g/kg BW 115.289 kg, r/t elevated RFT, no HD). Will reassess prn. LABS: GLU 163 H, ALB 2.4 L BUN 45 H GI: Pt had 1 BM 10/19 per RN doc. BS: 10 high risk. Please refer to wound assessment report for full details. PES: 1) Altered nutrition related lab values r.t current chronic medical condition aeb elevated RFTs, hyperglycemia, severe hypoalb Consider adding Nephrovite and Vit C 500mg BID for wound healing Recommendation: 1) Advance TPN to meet >75% of needs if propofol rate decreases 2) Consider Glucerna at 45 ml/hr on current rate of propofol 3) Advance diet as medically feasible to Renal Specific 70g if pt is not on HD 4) F/u 2-3 days
--- NOTE | 2019-10-23 15:40 | NUR ---
FAMILY DAUGHTER CALLED AND AFTER PROVIDING PASSWPRD, I UPDATE HER ON THE PT'S CURRENT CONDITION AND POC.
--- NOTE | 2019-10-23 17:18 | NUR ---
MD/PHONE SPOKE WITH DR RAND BY PHONE, AND MADE AWARE THAT PT DID NOT TOLERATED THE CHSNGE DOWN TO 50% FIO2. INFORMED HIM THAT PT EVENTUALLY DROPPED DOWN TO 81-82 % AND HAD TO HAVE O2 TURNED ALL THE WAY UP TO 100% FIO2 TO ALLOW O2 SATS TO RECOVER. FIO2 CURRENTLY AT 75% WITH O2 SAT 90-92%. NO NEW ORDERS RECEIVED. 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 Addendum: 10/23/19 at 1721 by Lolis La RN ERROR/WRONG CHART
[2019-10-23] MEDS: MIDAZOLAM DRIP 50 mg/50mL 50 ML IV SCH ×2 (18:42→22:36)
--- NOTE | 2019-10-23 19:30 | NUR ---
OPENING SHIFT REPORT RECEIVED FROM DAY SHIFT RN. ASSUMED CARE OF PATIENT. PATIENT INTUBATED AND SEDATED WITH NO SIGNS OR SYMPTOMS OF SOB, PAIN OR DISTRESS. NEGATIVE COUGH / GAG. RIGHT INTERNAL JUGULAR TLC - CLEAN/DRY/INTACT. DYE HUNG TO GRAVITY. SEDATION: VERSED - 15MG/HR FENTANYL - 150MCG/HR PROPOFOL - 30MCG/KG/MIN VASOPRESSOR: LEVOPHED - 5MCG/MIN BED IN LOWEST POSITION, SIDE RAILS UP X2. WILL CONTINUE TO MONITOR.
--- NOTE | 2019-10-23 19:45 | NUR ---
REPORT 'REPORT GIVEN TO DEE EDMONDSON RN.
[2019-10-23] MEDS: TPN*HIGH CONC* PER PHARMACY IV NR ×9 (19:57)
[2019-10-23] MEDS ORDERED: TPN*HIGH CONC* PER PHARMACY IV NR ×8 (20:00)
--- NOTE | 2019-10-23 21:17 | NUR ---
SPOKE TO FAMILY (DENNIS) PASSWORD VERIFIED. UPDATED DENNIS ON PATIENT STATUS. ALL QUESTIONS AND CONCERNS ADDRESSED AND ANSWERED.
[2019-10-23] MEDS: FAMOTIDINE 20 MG TAB PO SCH (22:30)
[2019-10-23] MEDS: INSULIN LANTUS (GLARGINE) 1 /0.01ml (100units/ml) SC SCH (22:30)
[2019-10-23] MEDS: fentaNYL Drip 2500mCg/250mlNS 250 ML IV SCH (23:30)
[2019-10-24] VITALS (101 sets, daily range): BP systolic 82–160; BP diastolic 42–88
[2019-10-24] MEDS: InsuLIN REG 1unit/0.01ml Soln (100units/ml) SC SCH ×5 (00:09→23:37)
[2019-10-24] MEDS: ACCU-CHEK COMFORT CURVE STRIP VI SCH ×5 (00:10→23:55)
[2019-10-24] MEDS: NOREPINEPHRINE 8 MG/250ML KIT 250 ML IV SCH (00:30)
[2019-10-24] MEDS: PROPOFOL 100 ML IV SCH ×5 (02:25→23:56)
--- NOTE | 2019-10-24 03:30 | NUR ---
MORNING CARE PERFORMED PARTIAL BATH WITH WASH CLOTHS AND CHG WIPES. PARTIAL LINEN CHANGE AND GOWN CHANGED. REPOSITIONED FOR COMFORT. SKIN REASSESSED AT THIS TIME. ORAL AND DYE CARE PERFORMED. WILL CONTINUE TO MONITOR.
--- NOTE | 2019-10-24 03:55 | NUR ---
DESATURATION PATIENT 02 SAT SUSTAINING AT 88%. TITRATED UP ON FI02 FROM 70% TO 80%. RT MADE AWARE. WILL CONTINUE TO MONITOR.
[2019-10-24 04:04] LABS: Hematocrit 31.3 % (41.0-53.0); Mean Corpuscular Hemoglobin 27.7 pg (28.0-32.0); Mean Corpuscular Hgb Conc. 31.9 g/dL (32.0-36.0); Mean Corpuscular Volume 86.8 fL (80.0-100.0); Platelet Count (auto) 187 10^3/uL (140-450); Red Blood Cells 3.61 10^6/uL (4.5-5.90); Red Cell Distribution Width 16.5 % (11.8-14.3); White Blood Cell 13.7 10^3/uL (4.4-10.8)
[2019-10-24 04:22] LABS: Albumin 2.5 g/dL (3.4-5.0); Calcium 8.4 mg/dL (8.5-10.1); Potassium 4.2 mmol/L (3.5-5.1)
[2019-10-24 04:27] LABS: BUN/Creatinine Ratio 55.4; Bilirubin, Total 1.1 mg/dL (0.2-1.0); Phosphorus 3.6 mg/dL (2.5-4.90); Total Protein 6.8 g/dL (6.4-8.2)
[2019-10-24 04:30] LABS: Basophils % (manual) 0 (0.0-2.0); Blast Cells 0; Eosinophils % (manual) 0 (0-7); Metamyelocytes % 0; Myelocytes % 0; Promyelocytes % 0; Reactive Lymphocytes 0
[2019-10-24] MEDS: MIDAZOLAM DRIP 50 mg/50mL 50 ML IV SCH ×6 (05:30→23:56)
[2019-10-24] MEDS: FUROSEMIDE 40 MG/4 ML VIAL IV SCH ×2 (06:18→18:00)
--- NOTE | 2019-10-24 06:30 | NUR ---
RT AT BEDSIDE / DESATURATION PATIENT SUSTAINING 02 SAT - 88% ON FI02 80%. RT TITRATED FI02 TO 90%. WILL CONTINUE TO MONITOR.
--- NOTE | 2019-10-24 06:43 | NUR ---
OXYGEN SATURATION CURRENT PATIENT 02 SAT - 91% ON FI02 90%. WILL CONTINUE TO MONITOR.
[2019-10-24] MEDS: ALBUTEROL SULF 2.5 MG/0.5ML(0.5%) NEB SOLN NEB SCH ×3 (07:03→22:07)
[2019-10-24] MEDS: ACETYLCYSTEINE 20%(200MG/ML) SOL 4ML IN SCH ×3 (07:03→22:07)
[2019-10-24] MEDS: IPRATROPIUM BROM 0.5 MG/2.5ML INH SOL NEB SCH ×3 (07:03→22:06)
[2019-10-24 07:10] LABS: Band Neutrophils % (manual) 5; Lymphocytes % (manual) 7 (10.0-50.0); Monocytes % (manual) 7 (0-12)
--- NOTE | 2019-10-24 07:30 | NUR ---
REPORT RECEIVED FROM TECHNICAL SUPPORT INTERN NURSE. PATIENT RESTING IN BED AT THIS TIME. RESPIRATIONS EVEN AND UNLABORED. NO SIGNS OF ACUTE DISTRESS NOTED. BED IN LOW POSITION. WILL CONTINUE TO MONITOR.
--- NOTE | 2019-10-24 07:39 | NUR ---
END OF SHIFT REPORT GIVEN TO DAY SHIFT RN. CARE ENDORSED.
--- NOTE | 2019-10-24 08:30 | NUR ---
DUE TO PATIENTS INCREASED FIO2 OF 90% AND PATIENT DESATURATES TO 85% WHEN LOWERING HOB UNABLE TO TURN PATIENT TO ASSESS BACK. UNABLE TO TURN PATIENT AT THIS TIME. PLACE PATIENT ON ASSISTED TURNS ON BED SETTINGS.
--- NOTE | 2019-10-24 09:10 | NUR ---
DR Blair CRAMER AT BEDSIDE TO ASSESS PATIENT AND DISCUSS PLAN OF CARE. NO NEW ORDERS AT THIS TIME.
[2019-10-24] MEDS: cefTRIAXone 1GM/50ML D5W 50 ML IV SCH (09:51)
[2019-10-24] MEDS: ASCORBIC ACID 500 MG TAB PO SCH ×2 (10:00→22:18)
[2019-10-24] MEDS: ZINC SULFATE 220mg CAP or TAB PO SCH (10:00)
[2019-10-24] MEDS: BACITRACIN TOP OINT 1 UD PKG TOP SCH (10:00)
[2019-10-24] MEDS: ENOXAPARIN SOD 40 MG/0.4 ML SYRINGE SC SCH (10:00)
[2019-10-24] MEDS: DexAMETHasone SOD PHOS 4 MG/1ML SDV INJ IV SCH (10:00)
[2019-10-24] MEDS: AMIODARONE HCL 200 MG TAB PO SCH ×2 (10:00→22:17)
--- NOTE | 2019-10-24 14:45 | NUR ---
WOUND CARE NOTE: IN TO ASSESS PATIENT'S SKIN INTEGRITY AT THIS TIME. PER BEDSIDE NURSE, PATIENT IS TOO UNSTABLE FOR TURNING/REPOSITIONING AT THIS TIME. PATIENT CONTINUES TO BE INTUBATED, SEDATED, AIRBORNE ISOLATION FOR POSITIVE COVID 19 INFECTION. CURRENT KAYLAH SCORE IS 10. HE IS RESTING ON ICU LOW AIRLOSS BED. RIGHT EAR MACERATED SCAB NOTED. WILL DC ORDER FOR HONEY AND OPTIFOAM, LEAVING EAR OPEN TO AIR. UPDATED SKIN/WOUND CARE PLAN. WILL ATTEMPT TO REASSESS WHEN PATIENT IS MORE STABLE AND ABLE TO TURN.
[2019-10-24] MEDS: fentaNYL Drip 2500mCg/250mlNS 250 ML IV SCH (15:30)
--- NOTE | 2019-10-24 15:30 | NUR ---
DR YANES AT BEDSIDE TO ASSESS PATIENT AND DISCUSS PLAN OF CARE. MD WILL CALL DAUGHTER AND DISCUSS PLAN OF CARE.
--- NOTE | 2019-10-24 18:25 | NUR ---
VENT: TITRATED FIO2 DOWN TO 85%. SPO2 94%. NOTIFIED ZAID ANDERSON.
--- NOTE | 2019-10-24 19:00 | NUR ---
UNABLE TO TURN PATIENT ENTIRE SHIFT DUE TO PATIENT INSTABILITY ON VENTILATOR. PATIENT REMAINED ON 90% FIO2. MD AND FAMILY AWARE.
--- NOTE | 2019-10-24 19:28 | NUR ---
Opening Shift Note Assumed care of patient, who is sedated and -2 RASS at this time. Sedatives titrated accordingly. See IV spreadsheet. No S/S of distress/SOB or pain. Bed is in lowest position and locked. Call light within reach. Board updated. Continuos EKG and pulse oximetry monitoring in place. BP cuff to right arm set to take measurements q 15 minutes. Will continue to monitor for changes Q1hr and PRN.
[2019-10-24] MEDS ORDERED: TPN*HIGH CONC* PER PHARMACY IV NR ×8 (20:00)
--- NOTE | 2019-10-24 21:00 | NUR ---
Unable to perform sedation vacation at this time. Patient is too hemodynamically unstable. Addendum: 10/25/19 at 0038 by ROBERT MADERA RN Amended: Links added.
--- NOTE | 2019-10-24 22:15 | NUR ---
PT DESAT TO 82% AFTER TURNED/REPOSITIONED BY RN AT BEDSIDE. SUCTIONED WITH LAVAGE FOR MODERATE THICK YELLOW SECRETIONS. INCREASED FIO2 TO 90%, PT NOW MAINTAINING SPO2 92-93%. RN AWARE OF CHANGES. WILL CONTINUE TO MONITOR.
[2019-10-24] MEDS: FAMOTIDINE 20 MG TAB PO SCH (22:17)
[2019-10-24] MEDS: INSULIN LANTUS (GLARGINE) 1 /0.01ml (100units/ml) SC SCH (22:19)
[2019-10-25] VITALS (98 sets, daily range): BP systolic 83–165; BP diastolic 48–93
--- NOTE | 2019-10-25 00:02 | NUR ---
Patient deoxygenated while turning to 84%. Patient placed on 100% FiO2 and returned to 90% after two minutes. Will continue to assess. No secretions noted from ET tube.
[2019-10-25] MEDS: NOREPINEPHRINE 8 MG/250ML KIT 250 ML IV SCH ×2 (01:30→15:15)
[2019-10-25] MEDS: MIDAZOLAM DRIP 50 mg/50mL 50 ML IV SCH ×5 (03:26→22:49)
--- NOTE | 2019-10-25 03:38 | NUR ---
Patient desaturated once agian while turning but returned to 91% on 100% FiO2. Will continue to assess.
[2019-10-25 04:52] LABS: Hematocrit 32.3 % (41.0-53.0); Hemoglobin 10.5 g/dL (13.5-17.5); Mean Corpuscular Hgb Conc. 32.4 g/dL (32.0-36.0); Mean Corpuscular Volume 86.3 fL (80.0-100.0); Platelet Count (auto) 199 10^3/uL (140-450); Red Blood Cells 3.74 10^6/uL (4.5-5.90); Red Cell Distribution Width 16.9 % (11.8-14.3); White Blood Cell 16.5 10^3/uL (4.4-10.8)
[2019-10-25 05:14] LABS: Basophils % (manual) 0 (0.0-2.0); Blast Cells 0; Metamyelocytes % 0; Myelocytes % 0; Promyelocytes % 0; Reactive Lymphocytes 0
--- NOTE | 2019-10-25 05:16 | NUR ---
Unable to perform complete bed bath and linen change. Patient destaurated to 82% on 100% FiO2 when we moved the patient up in bed to begin bed bath. I performed a CHG bath on all visible/ reachable parts of body but was unable to cleanse back. Changed sheets and pillowcases.
[2019-10-25 05:17] LABS: Albumin 2.4 g/dL (3.4-5.0); Calcium 8.8 mg/dL (8.5-10.1); Magnesium 2.2 mg/dL (1.6-2.6)
[2019-10-25] MEDS: PROPOFOL 100 ML IV SCH ×5 (05:18→21:59)
[2019-10-25 05:20] LABS: BUN/Creatinine Ratio 75.4; Bilirubin, Total 1.1 mg/dL (0.2-1.0); Phosphorus 3.2 mg/dL (2.5-4.90); Total Protein 7.1 g/dL (6.4-8.2)
[2019-10-25 05:54] LABS: Band Neutrophils % (manual) 7; Eosinophils % (manual) 2 (0-7); Lymphocytes % (manual) 11 (10.0-50.0); Monocytes % (manual) 7 (0-12)
[2019-10-25] MEDS: InsuLIN REG 1unit/0.01ml Soln (100units/ml) SC SCH ×3 (06:18→17:19)
--- NOTE | 2019-10-25 06:26 | NUR ---
Upon assessing patient I discovered a large wet patch underneath his central line. Propofol was discovered to be leaking from 4 way stop-cock attachment. Line was secured to attachment but still leaking. Obtained a new four way stop-cock and attempted to infuse propofol. No issues with new stop cock. Flushed central line to ensure no obstruction. Line patent. Propofol now infusing at ordered rate again. Will continue to assess.
--- NOTE | 2019-10-25 06:28 | NUR ---
Patient has desaturated to 82% on 100% FiO2 after adjusting patient to switch 4 way stop cock. Patient is still breathing against ventilator and is -1 RASS. BP has increased to 165/93. Propofol is now infusing with other sedatives at ordered rate.
[2019-10-25] MEDS: FUROSEMIDE 40 MG/4 ML VIAL IV SCH ×2 (06:48→17:52)
--- NOTE | 2019-10-25 07:16 | NUR ---
REPORT RECEIVED FROM NET WPF DEVELOPER NURSE. PATIENT RESTING IN BED AT THIS TIME. RESPIRATIONS EVEN BUT LABORED WITH ACCESSORY MUSCLE BREATHING. BED IN LOW POSITION, UNABLE TO TURN PATIENT AT THIS TIME. WILL CONTINUE TO MONITOR.
--- NOTE | 2019-10-25 07:16 | NUR ---
Closing shift note. Care endorsed to ZAID Seymour. Patient is now saturating 88% on 100% Fio2 and does not appear to be be breathing agianst ventilator anymore. He appears -3 RASS.
[2019-10-25] MEDS: ACCU-CHEK COMFORT CURVE STRIP VI SCH ×3 (07:33→17:50)
[2019-10-25] MEDS: ALBUTEROL SULF 2.5 MG/0.5ML(0.5%) NEB SOLN NEB SCH ×3 (07:39→22:34)
[2019-10-25] MEDS: ACETYLCYSTEINE 20%(200MG/ML) SOL 4ML IN SCH ×3 (07:39→22:34)
[2019-10-25] MEDS: IPRATROPIUM BROM 0.5 MG/2.5ML INH SOL NEB SCH ×3 (07:39→22:34)
--- NOTE | 2019-10-25 08:26 | NUR ---
DR YANES CALLED FOR UPDATE ON PATIENT STATUS. ALL QUESTIONS AND CONCERNS ADDRESSED AT THIS TIME.
[2019-10-25] MEDS: cefTRIAXone 1GM/50ML D5W 50 ML IV SCH (08:45)
[2019-10-25] MEDS: ACETAMINOPHEN 325 MG TAB PO PRN ×2 (08:45→17:05)
--- NOTE | 2019-10-25 09:52 | NUR ---
DR CRAMER ON UNIT TO ASSESS PATIENT AND DISCUSS PLAN OF CARE. MD INFORMED THAT PATIENT HAS STARTED TO REMAIN IN TO LOW 80'S SATURATIONS ON 100% FIO2. PER MD THERE ARE NO OTHER ADJUSTMENTS THAT WE CAN DO AT THIS TIME. MD SPOKE WITH PATIENTS DAUGHTER VIA TELEPHONE ON EXPLAINED PATIENTS CURRENT STATUS. ALL QUESTIONS AND CONCERNS ADDRESSED AT THIS TIME.
[2019-10-25] MEDS: BACITRACIN TOP OINT 1 UD PKG TOP SCH (10:00)
--- NOTE | 2019-10-25 10:00 | NUR ---
HELD BACITRICIN OINTMENT FOR RIGHT EAR PER WOUND CARE NURSE RECOMMENDATION TO HELP IMPROVE SKIN MOISTURE TO THAT AREA.
[2019-10-25] MEDS: DexAMETHasone SOD PHOS 4 MG/1ML SDV INJ IV SCH (10:07)
[2019-10-25] MEDS: ZINC SULFATE 220mg CAP or TAB PO SCH (10:07)
[2019-10-25] MEDS: ENOXAPARIN SOD 40 MG/0.4 ML SYRINGE SC SCH (10:07)
[2019-10-25] MEDS: ASCORBIC ACID 500 MG TAB PO SCH ×2 (10:07→21:38)
[2019-10-25] MEDS: AMIODARONE HCL 200 MG TAB PO SCH ×2 (10:07→21:38)
--- NOTE | 2019-10-25 12:10 | NUR ---
Nutrition Followup Notes Wt: 112.7 kg Pt is in isolation room d/t COVID positive. Pt continues to be intubated sedated with propofol @ 34.589 ml/hr providing 913 kcal from lipids. Pt continues to be NPO receiving TPN nutrition support 63ml/hr, providing 135g proteins, 1254 kcals, and 714 kcal NPCs. Pt with partial adequate energy intake from PN support as it meets 60-78% of est caloric needs while TPN and propofol together provide 104-134% of energy needs. TPN meets 119-150% of protein needs Est energy needs 2322-7142 kcal (14-18 kcal/kg BW 112.7kg), Est protein needs 90-113g (0.8-0.1g/kg BW 112.7 kg). Will reassess prn. LABS: BUN 52H, GLUC 118H, Creat 0.64L, AST 147H, ALT 254H, Alb 2.4L GI: Pt had 1 BM 10/19 per RN doc. BS: 10 high risk. Please refer to wound assessment report for full details. PES: 1) Altered nutrition related lab values r.t current chronic medical condition aeb elevated RFTs, hyperglycemia, severe hypoalb Consider adding Nephrovite and Vit C 500mg BID for wound healing Recommendation: 1) Advance TPN to meet >75% of needs if propofol rate decreases 2) Consider Glucerna at 45 ml/hr on current rate of propofol 3) F/u 2-3 days
[2019-10-25] MEDS: fentaNYL Drip 2500mCg/250mlNS 250 ML IV SCH (16:54)
--- NOTE | 2019-10-25 17:50 | NUR ---
CENTRAL LINE DRESSING CHANGED USING STERILE TECHNIQUE. PATIENT TOLERATED WELL. PATIENT NO LONGER HAS SUTURES THAT ARE INTACT HOLDING LINE IN PLACE. NO NOTED REDNESS OR DRAINAGE. PATIENT TOLERATED WELL.
--- NOTE | 2019-10-25 19:00 | NUR ---
UNABLE TO TURN PATIENT ENTIRE SHIFT DUE TO PATIENT INSTABILITY ON VENTILATOR. PATIENT REMAINED ON 100% FIO2. MD AND FAMILY AWARE.
[2019-10-25] MEDS ORDERED: TPN*HIGH CONC* PER PHARMACY IV NR ×9 (20:00)
--- NOTE | 2019-10-25 20:00 | NUR ---
OPEN NOTES Received patient sedated with IV Propofol, Versed and Fentanyl - see IV spreadsheet Intubated and ventilated on PC mode, Fio2 100%. Suctioned secretions - orally noted some blood SR, Still On IV Levophed Right nares NGT - clamped. On IV TPN Hernandez catheter draining to yellowish output with sediments. Skin noted to have multiple skin tear and pressure sore - refer wound chart Unable to turn patient - on lateral rotation Full assessment done- refer interventions will continue to monitor
--- NOTE | 2019-10-25 20:00 | NUR ---
Unable to turn According to day shift RN easily desaturates kept on lateral rotation
--- NOTE | 2019-10-25 21:02 | NUR ---
unable to do sedation vacation patient desaturates easily Addendum: 10/25/19 at 2103 by Rayne Spivey RN Amended: Links added.
[2019-10-25] MEDS: FAMOTIDINE 20 MG TAB PO SCH (21:38)
[2019-10-25] MEDS: INSULIN LANTUS (GLARGINE) 1 /0.01ml (100units/ml) SC SCH (21:58)
[2019-10-26] VITALS (102 sets, daily range): BP systolic 73–123; BP diastolic 6–72
[2019-10-26] MEDS: InsuLIN REG 1unit/0.01ml Soln (100units/ml) SC SCH ×4 (00:19→18:00)
[2019-10-26] MEDS: ACCU-CHEK COMFORT CURVE STRIP VI SCH ×4 (00:19→18:00)
[2019-10-26] MEDS: PROPOFOL 100 ML IV SCH ×4 (01:05→10:41)
--- NOTE | 2019-10-26 01:20 | NUR ---
PATIENT'S BP DROPPED TO 70 MMHG SYSTOLIC AFTER IV TUBING WAS CHANGED WILL MONITOR Addendum: 10/26/19 at 0303 by Rayne Spivey RN NOTED SATURATION DROPPED TO 89% AND HR WENT UP TO 100/MIN
--- NOTE | 2019-10-26 01:30 | NUR ---
RE-ASSESS BP,HR AND SATS SLOWLY GETTING BETTER
[2019-10-26] MEDS: MIDAZOLAM DRIP 50 mg/50mL 50 ML IV SCH ×6 (02:27→17:26)
[2019-10-26] MEDS: NOREPINEPHRINE 8 MG/250ML KIT 250 ML IV SCH (02:28)
[2019-10-26] MEDS: fentaNYL Drip 2500mCg/250mlNS 250 ML IV SCH ×2 (02:30→12:47)
--- NOTE | 2019-10-26 05:30 | NUR ---
HYGIENE/UNABLE TO CHANGE LINENS CLEANED PATIENT'S FRONT BODY PART. GOWN CHANGED. TRIED TURNING PATIENT USING TURN ASSIST - DESATURATED TO 90% BECAUSE OF THAT LINENS WERE NOT CHANGED. SATURATION PICKED UP TO 96% BUT THEN DROPPED BACK TO 93% ORAL CARE DONE WILL CONTINUE TO MONITOR
[2019-10-26 05:46] LABS: Basophils # (auto) 0.1 10 ^3/uL (0-0.2); Basophils % (auto) 0.7 % (0.0-2.0); Eosinophils # (auto) 0.2 10 ^3/uL (0-0.8); Eosinophils % (auto) 1.2 % (0.0-7.0); Hematocrit 32.8 % (41.0-53.0); Hemoglobin 10.5 g/dL (13.5-17.5); Lymphocytes # (auto) 1.2 10 ^3/uL (0.4-5.4); Lymphocytes % (auto) 6.9 % (10.0-50.0); Mean Corpuscular Hemoglobin 28.1 pg (28.0-32.0); Mean Corpuscular Hgb Conc. 32.1 g/dL (32.0-36.0); Mean Corpuscular Volume 87.3 fL (80.0-100.0); Monocytes # (auto) 1.2 10 ^3/uL (0-1.3); Monocytes % (auto) 6.8 % (0.0-12.0); Neutrophils # (auto) 14.6 10 ^3/uL (1.6-8.6); Neutrophils % (auto) 84.4 % (37.0-80.0); Nucleated Red Blood Cells % 2.7 %; Platelet Count (auto) 274 10^3/uL (140-450); Red Blood Cells 3.75 10^6/uL (4.5-5.90); Red Cell Distribution Width 17.3 % (11.8-14.3); White Blood Cell 17.3 10^3/uL (4.4-10.8)
[2019-10-26 06:09] LABS: Potassium 5.2 mmol/L (3.5-5.1)
[2019-10-26 06:21] LABS: Albumin 2.3 g/dL (3.4-5.0); BUN/Creatinine Ratio 67.5; Bilirubin, Total 2.2 mg/dL (0.2-1.0); Calcium 8.9 mg/dL (8.5-10.1); Magnesium 2.8 mg/dL (1.6-2.6); Phosphorus 6.4 mg/dL (2.5-4.90); Total Protein 7.3 g/dL (6.4-8.2)
[2019-10-26] MEDS: FUROSEMIDE 40 MG/4 ML VIAL IV SCH ×2 (06:21→18:35)
--- NOTE | 2019-10-26 07:01 | NUR ---
Respiratory note: RECEIVED PATIENT ON V5 V200 VENT ORALLY INTUBATED WITH AN 8.0 ETT SECURED VIA ODALYS AT THE 24CM MARKING AT THE LIP, AND MECHANICALLY VENTILATED WITH THE CHARTED SETTINGS. SPO2 94%, LUNG SOUNDS DIM T/O, MODERATE AMOUNT OF THICK LIGHT STEINBERG SECRETIONS WHEN SUCTIONED. SKIN IS WARM/DRY TO THE TOUCH AND IS BROKEN ON LIPS. THERE IS A NGT PLACED IN THE RIGHT NARE, AND A TRIPLE LUMEN CENTRAL LINE IS PLACED IN THE RIGHT IJ. PITTING EDEMA NOTED IN BILATERAL UPPER AND LOWER EXTREMITIES. NO NEW AM CXR TO ASSESS. PATIENT IS UNRESPONSIVE TO STIMULI AND IS SEDATED ON VERSED AND FENTANYL DRIPS, HE IS RESTING COMFORTABLY AND TOLERATING VENT WELL, NO CHANGES MADE. VENT PLUGGED INTO RED OUTLET AND ALL ALARMS ARE SET AND AUDIBLE. WILL CONTINUE TO ASSESS PATIENT WELL VENTILATOR FUNCTION. [employer] RUN INLINE.
[2019-10-26] MEDS: ALBUTEROL SULF 2.5 MG/0.5ML(0.5%) NEB SOLN NEB SCH ×3 (07:02→22:10)
[2019-10-26] MEDS: IPRATROPIUM BROM 0.5 MG/2.5ML INH SOL NEB SCH ×3 (07:02→22:10)
[2019-10-26] MEDS: ACETYLCYSTEINE 20%(200MG/ML) SOL 4ML IN SCH ×2 (07:03→22:10)
--- NOTE | 2019-10-26 08:30 | NUR ---
ASSESSMENT IN ISOLATION FOR + COVID . PT RESTING IN BED WITH EYES CLOSED, SEDATED WHILE INTUBATED. VENTILATOR SETTINGS: PRESSURE CONTROL MODE WITH PRESSURE OF 30, RATE OF 28, PEPP OF 8 AND 100% FIO2. LUNGS CLEAR THROUGHOUT. O2 SAT OF 93%. TELE SR 87. RIGHT NARES NGT, + PLACEMENT CLAMPED AND WITH RESIDUAL OF 55ML. ABD SOFT WITH VERY HYPOACTIVE BOWEL SOUNDS. DYE CATHETER DRAINING YELLOW URINE WITH SEDIMENT. LAST BM WAS 10/18. SEE WOUND CARE ASSESSMENT FOR SKIN CONDITION. TURNED FOR COMFORT. RAILS UP X4 AND BED IN LOW POSITION FOR PT SAFETY. CONTINUE TO MONITOR.
--- NOTE | 2019-10-26 09:00 | NUR ---
NO SEDATION VACATION PT ON 100% FIO2. Addendum: 10/26/19 at 2012 by Lolis La RN Amended: Links added.
[2019-10-26] MEDS: cefTRIAXone 1GM/50ML D5W 50 ML IV SCH (10:14)
[2019-10-26] MEDS: DexAMETHasone SOD PHOS 4 MG/1ML SDV INJ IV SCH (10:14)
[2019-10-26] MEDS: BACITRACIN TOP OINT 1 UD PKG TOP SCH (10:35)
[2019-10-26] MEDS: ASCORBIC ACID 500 MG TAB PO SCH (10:41)
[2019-10-26] MEDS: ZINC SULFATE 220mg CAP or TAB PO SCH (10:42)
[2019-10-26] MEDS: ENOXAPARIN SOD 40 MG/0.4 ML SYRINGE SC SCH (10:42)
[2019-10-26] MEDS: AMIODARONE HCL 200 MG TAB PO SCH (10:42)
--- NOTE | 2019-10-26 18:00 | NUR ---
RECEIVED A PHONE CALL FROM PT'S DAUGHTER , DENNIS, AND AFTER VERIFYING PASSWORD I UPDATED HER AND ANSWERED HER QQUESTIONS.
--- NOTE | 2019-10-26 19:30 | NUR ---
report received and assumed care; see interventions for assessment; vs stable at this time; pt. intubated/vented/sedated; pt. too unstable to turn as per am rn report-pt. desats to low 80's and slowly recovers; pt. on a 100% FIO2 already; will cont. to monitor.
--- NOTE | 2019-10-26 19:50 | NUR ---
REPORT REPORT GIVEN TO SAJI EDMONDSON RN.
[2019-10-26] MEDS ORDERED: TPN*HIGH CONC* PER PHARMACY IV NR ×6 (20:00)
--- NOTE | 2019-10-26 21:00 | NUR ---
sedation vacation not performed as it is inappropriate at this time.
[2019-10-27] VITALS (98 sets, daily range): BP systolic 77–117; BP diastolic 49–68
[2019-10-27] MEDS: InsuLIN REG 1unit/0.01ml Soln (100units/ml) SC SCH ×4 (01:17→18:45)
[2019-10-27] MEDS: AMIODARONE HCL 200 MG TAB PO SCH ×2 (01:57→09:59)
[2019-10-27] MEDS: FAMOTIDINE 20 MG TAB PO SCH (01:58)
[2019-10-27] MEDS: ASCORBIC ACID 500 MG TAB PO SCH ×2 (01:59→09:59)
[2019-10-27] MEDS: INSULIN LANTUS (GLARGINE) 1 /0.01ml (100units/ml) SC SCH (02:00)
[2019-10-27] MEDS: FUROSEMIDE 40 MG/4 ML VIAL IV SCH ×2 (06:00→18:30)
[2019-10-27] MEDS: ACCU-CHEK COMFORT CURVE STRIP VI SCH ×4 (06:00→18:30)
[2019-10-27] MEDS: IPRATROPIUM BROM 0.5 MG/2.5ML INH SOL NEB SCH ×3 (06:27→22:37)
[2019-10-27] MEDS: ACETYLCYSTEINE 20%(200MG/ML) SOL 4ML IN SCH ×3 (06:27→22:37)
[2019-10-27] MEDS: ALBUTEROL SULF 2.5 MG/0.5ML(0.5%) NEB SOLN NEB SCH ×3 (06:27→22:37)
--- NOTE | 2019-10-27 07:14 | NUR ---
PAGED DR. CRAMER REGARDING CRITICAL ABG RESULTS
[2019-10-27] MEDS ORDERED: SODIUM BICARBONATE 8.4 % INJ 50ML VIAL IV ONE ×2 (07:20→19:45)
--- NOTE | 2019-10-27 07:30 | NUR ---
PER DR. CRAMER INCREASED RR 32
--- NOTE | 2019-10-27 07:30 | NUR ---
REPORT REPORT RECEIVED FROM RADIATION TECHNICIAN RNSAJI. PT IN ISOLATION FOR + COVID. VIEWED PT THROUGH GLASS DOORS. CONTINUE TO MONITOR.
[2019-10-27] MEDS: PROPOFOL 100 ML IV SCH ×4 (07:47→17:32)
--- NOTE | 2019-10-27 08:00 | NUR ---
ASSESSMENT PT IN ISOLATION FOR + COVID. PT SEDATED ON DIPRIVAN AND FENTANYL AND WITH NO MOVEMENT NOTED, NO COUGH OR GAG AND PUPILS 4 AND FIXED. PT WITH ALL IVF MEDS AND FLUIDS INFUSING THROUGH A TLC TO THE RIJ, SITE BENIGN. ON THE VENTILATOR WITH SETTINGS OF: 8 FR ETT/ 24 AT THE LIP,
[2019-10-27] MEDS: cefTRIAXone 1GM/50ML D5W 50 ML IV SCH (09:00)
--- NOTE | 2019-10-27 09:00 | NUR ---
SEDATION VACATION DEFERRED ON THE SEDATION VACATION PT UNSTABLE . Addendum: 10/27/19 at 1354 by Lolis La RN Amended: Links added.
[2019-10-27] MEDS: ENOXAPARIN SOD 40 MG/0.4 ML SYRINGE SC SCH (09:59)
[2019-10-27] MEDS: ZINC SULFATE 220mg CAP or TAB PO SCH (09:59)
[2019-10-27] MEDS: BACITRACIN TOP OINT 1 UD PKG TOP SCH (10:00)
--- NOTE | 2019-10-27 10:00 | NUR ---
CALLED PHARMACY FOR DECADRON OUR PYXIS IS EMPTY.
[2019-10-27] MEDS: MIDAZOLAM DRIP 50 mg/50mL 50 ML IV SCH ×3 (10:50→17:32)
[2019-10-27 11:22] LABS: Albumin 2.3 g/dL (3.4-5.0); Calcium 8.8 mg/dL (8.5-10.1); Magnesium 2.4 mg/dL (1.6-2.6); Potassium 4.4 mmol/L (3.5-5.1)
[2019-10-27] MEDS: DexAMETHasone SOD PHOS 10MG/1ML VIAL INJ IV SCH (11:32)
[2019-10-27] MEDS: NOREPINEPHRINE 8 MG/250ML KIT 250 ML IV SCH (11:36)
[2019-10-27 11:39] LABS: Bilirubin, Total 2.3 mg/dL (0.2-1.0); Phosphorus 5.9 mg/dL (2.5-4.90)
--- NOTE | 2019-10-27 11:54 | NUR ---
FAMILY RECEIVED A PHONE CALL FROM PT'S DAUGHTER, DENNIS, AND AFTER VERIFYING PASSWORD, I UPDATED HER AND ANSWERED HER QUESTIONS. I WILL TRY TO HAVE DR YANES CALL HER WITH AN UPDATE.
--- NOTE | 2019-10-27 12:15 | NUR ---
MD/PHONE RECEIVED A PHONE CALL FROM DR YANES. I UPDATED HIM ON THE PT'S CURRENT CONDITION INCLUDING DRIPS, ABG RESULTS AND VENT CHANGES BY JL SCHMIDT AND DAUGHTER'S REQUEST TO SPEAK WITH HIM. I PROVIDED THE MD WITH THE DAUGHTER'S NAME AND HER PHONE NUMBER AND HE STATED THAT HE WOULD CALL HER.
[2019-10-27] MEDS: fentaNYL Drip 2500mCg/250mlNS 250 ML IV SCH (12:45)
[2019-10-27 13:08] LABS: Hematocrit 32.3 % (41.0-53.0); Mean Corpuscular Hemoglobin 27.3 pg (28.0-32.0); Platelet Count (auto) 243 10^3/uL (140-450); Red Blood Cells 3.68 10^6/uL (4.5-5.90); Red Cell Distribution Width 17.3 % (11.8-14.3); White Blood Cell 19.8 10^3/uL (4.4-10.8)
[2019-10-27 13:10] LABS: Basophils % (manual) 0 (0.0-2.0); Blast Cells 0; Eosinophils % (manual) 0 (0-7); Metamyelocytes % 0; Promyelocytes % 0; Reactive Lymphocytes 0
[2019-10-27 14:23] LABS: Band Neutrophils % (manual) 4; Lymphocytes % (manual) 2 (10.0-50.0); Monocytes % (manual) 5 (0-12); Myelocytes % 2
--- NOTE | 2019-10-27 14:35 | NUR ---
Nutrition Followup Notes Wt: 112.6 kg Pt is COVID positive. Pt continues to be intubated sedated with propofol @ 27.672 ml/hr providing 731 kcal from lipids. Pt continues to be NPO receiving TPN nutrition support @ 46 ml/hr, providing 105g proteins, 1134 kcals, and 714 NPCs. Pt with partial adequate energy intake from PN support as it meets 56-72% of est caloric needs while TPN and propofol together provide 92-118% of energy needs. TPN meets 93-117% of protein needs Est energy needs 9665-5517 kcal (14-18 kcal/kg BW 112.7kg), Est protein needs 90-113g (0.8-0.1g/kg BW 112.7 kg). Will reassess prn. LABS: BUN 79H, GLUC 218H, A1c 9.6 H, AST 598H, ALT 620H, Alk Phos 296 H, Bili 2.2 H, Alb 2.3L GI: Pt had no BM today per RN doc. BS: 7 high risk. Please refer to wound assessment report for full details. PES: 1) Altered nutrition related lab values r.t current chronic medical condition aeb elevated RFTs, hyperglycemia, severe hypoalb Consider adding Nephrovite and Vit C 500mg BID for wound healing Recommendation: 1) Advance TPN to meet >75% of needs if propofol rate decreases 2) Consider Glucerna at 45 ml/hr on current rate of propofol 3) F/u 2-3 days
--- NOTE | 2019-10-27 15:10 | NUR ---
G CRITICAL VALUES REPORTED TO DR. CRAMER VIA TELEPHONE.
--- NOTE | 2019-10-27 18:20 | NUR ---
ACCUCHECK OF 141 AND PT GIVEN 2 UNITS OF REGULAR INSULIN SQ.
--- NOTE | 2019-10-27 18:46 | NUR ---
Respiratory note: RECEIVED PT ON VENT,AT BEDSIDE IN FULL PPE FOR COVID -19 PRECAUTIONS. ALARMS ARE SET AND AUDIBLE. PT DESATING TO MID 80S FIO2 INCREASED TO 100%. ETT MOVED FORM RIGHT TO LEFT WITHOUT INCIDENT. AMBU BAG AND MASK AT BEDSIDE. BS ARE COURSE. SXD VIA ETT FOR SMALL STEINBERG/BLOOD TINGE, VENT TUBING DRAINED DUE TO ACCUMULATED RAIN OUT IN TUBING. CURRENT TEMP REDS 100.2F. WILL CONTINUE TO MONITOR. RN SAJI Evans COMMUNICATED ONO2 CHANGE.
--- NOTE | 2019-10-27 18:47 | NUR ---
BP OF 88/51 AND HELD SCHEDULED DOSE OF LASIX 40 MG IV. INCREASED LEVOPHED BY 2 MCG TO 18. CONTINUE TO MONITOR BP. O2 SAT DOWN TO 85%. HAVE SUCTIONED VIA ETT AND ORALLY FOR SCANT FLUID. GURGLING SOUND NOTED. ASKED RT WILFRIDO, TO CHECK ON PT WHICH SHE DID.
--- NOTE | 2019-10-27 19:00 | NUR ---
O2 SATS HAD COME UP TO 87% ONLY. RT WILFRIDO, INCREASED FIO2 BACK TO 100%. CONTINUE TO MONITOR.
--- NOTE | 2019-10-27 19:30 | NUR ---
REPORT RECEIVED AND ASSUMED CARE; SEE INTERVENTIONS FOR ASSESSMENT; VS STABLE AT THIS TIME- WITH EXCEPTION OF SBP IN HIGH 80'S WHILE ON LEVOPHED GTT AND WILL TITRATE PER PROTOCOL/ AND LOW SATS IN 88-91%, WITH PT. ON 100% FIO2; AWARE; SEE IV SPREADSHEET FOR GTTS; WILL CONT. TO MONITOR.
--- NOTE | 2019-10-27 19:38 | NUR ---
REPORT REPORT GIVEN TO SAJI EDMONDSON RN,
[2019-10-27] MEDS: TPN*HIGH CONC* PER PHARMACY IV NR ×7 (20:06)
--- NOTE | 2019-10-27 21:00 | NUR ---
SEDATION VACATION NOT PERFORMED IT IS INAPPROPRIATE AT THIS TIME.
--- NOTE | 2019-10-27 21:20 | NUR ---
S/W DAUGHTER-DENNIS- AND UPDATED ON PLAN OF CARE AND PT. POOR PROGNOSIS; ANSWERED ALL QUESTIONS SATISFACTORILY.
--- NOTE | 2019-10-27 22:30 | NUR ---
Respiratory note: AT BEDSIDE IN FULL PPE FOR COVID PRECAUTIONS. SXD FOR SMALL CREAMY STEINBERG SECRETIONS. MED NEB TX GIVEN VIA AEROGEN, NO ADVERSE REACTION NOTED. PTS CURRENT TEMP READS 99.9F. WILL CONTINUE TO MONITOR.
[2019-10-28] VITALS (95 sets, daily range): BP systolic 71–167; BP diastolic 40–80
[2019-10-28] MEDS: ACCU-CHEK COMFORT CURVE STRIP VI SCH ×4 (00:20→18:15)
[2019-10-28] MEDS: AMIODARONE HCL 200 MG TAB PO SCH ×3 (00:20→22:00)
[2019-10-28] MEDS: ASCORBIC ACID 500 MG TAB PO SCH ×3 (00:20→22:00)
[2019-10-28] MEDS: INSULIN LANTUS (GLARGINE) 1 /0.01ml (100units/ml) SC SCH ×2 (00:20→22:00)
[2019-10-28] MEDS: FAMOTIDINE 20 MG TAB PO SCH ×2 (00:20→22:00)
[2019-10-28] MEDS: InsuLIN REG 1unit/0.01ml Soln (100units/ml) SC SCH ×4 (01:04→18:00)
--- NOTE | 2019-10-28 04:25 | NUR ---
s/w dr. cruz through exchange service and reported low sbp in 70's with levophed gtt at max, needing second pressor, and abg results of base excess -8 and sodium bicarb ordered as well.
[2019-10-28] MEDS ORDERED: SODIUM BICARBONATE 8.4 % INJ 50ML VIAL IV ONE ×6 (04:30→14:30)
[2019-10-28] MEDS ORDERED: DOPamine 1600MCG/ML D5W 250 ML IV ONE (04:31)
[2019-10-28] MEDS: FUROSEMIDE 40 MG/4 ML VIAL IV SCH ×2 (06:00→18:54)
[2019-10-28] MEDS: ACETYLCYSTEINE 20%(200MG/ML) SOL 4ML IN SCH ×2 (06:17→18:29)
[2019-10-28] MEDS: ALBUTEROL SULF 2.5 MG/0.5ML(0.5%) NEB SOLN NEB SCH ×3 (06:17→18:28)
[2019-10-28] MEDS: IPRATROPIUM BROM 0.5 MG/2.5ML INH SOL NEB SCH ×3 (06:17→18:29)
[2019-10-28] MEDS: PROPOFOL 100 ML IV SCH ×4 (07:00→20:00)
[2019-10-28] MEDS: NOREPINEPHRINE 8 MG/250ML KIT 250 ML IV SCH ×3 (07:00→20:00)
--- NOTE | 2019-10-28 07:10 | NUR ---
CALL PLACED TO DR GIBSON RE: ADDITIONAL PRESSOR FOR LOW BP
--- NOTE | 2019-10-28 07:45 | NUR ---
CALL PLACED TO DR CRAMER RE: ABG RESULTS.
[2019-10-28] MEDS: DOPamine 1600MCG/ML D5W 250 ML IV SCH ×3 (08:00→23:00)
--- NOTE | 2019-10-28 08:12 | NUR ---
DR CRAMER RETURNS CALL - INFORMED OF ABG RESULTS - ORDERS RECEIVED.
--- NOTE | 2019-10-28 08:35 | NUR ---
updated daughter-jonathon, on pt. status and poor prognosis; pt. having low sbp's and o2 sats; cont. with plan of care abnd full code status at this time.
--- NOTE | 2019-10-28 09:00 | NUR ---
Sedation vacation held secondary to patient on PC vent mode. Addendum: 10/28/19 at 2101 by Viviane Aguilar RN Amended: Links added.
[2019-10-28] MEDS: cefTRIAXone 1GM/50ML D5W 50 ML IV SCH (09:41)
--- NOTE | 2019-10-28 09:45 | NUR ---
Dr Soler visits - discusses patient condition with continuity writer and RT Chula Quintana - orders received.
[2019-10-28 10:08] LABS: Hematocrit 31.3 % (41.0-53.0); Hemoglobin 9.8 g/dL (13.5-17.5); Mean Corpuscular Hemoglobin 27.3 pg (28.0-32.0); Mean Corpuscular Hgb Conc. 31.2 g/dL (32.0-36.0); Mean Corpuscular Volume 87.3 fL (80.0-100.0); Platelet Count (auto) 203 10^3/uL (140-450); Red Blood Cells 3.58 10^6/uL (4.5-5.90); Red Cell Distribution Width 18.4 % (11.8-14.3); White Blood Cell 23.7 10^3/uL (4.4-10.8)
[2019-10-28 10:10] LABS: Basophils % (manual) 0 (0.0-2.0); Blast Cells 0; Eosinophils % (manual) 0 (0-7); Metamyelocytes % 0; Promyelocytes % 0; Reactive Lymphocytes 0
[2019-10-28] MEDS: ZINC SULFATE 220mg CAP or TAB PO SCH (10:15)
[2019-10-28] MEDS: BACITRACIN TOP OINT 1 UD PKG TOP SCH (10:15)
[2019-10-28 10:26] LABS: BUN/Creatinine Ratio 64.5; Calcium 8.4 mg/dL (8.5-10.1); Potassium 5.3 mmol/L (3.5-5.1)
[2019-10-28 10:31] LABS: Band Neutrophils % (manual) 3; Lymphocytes % (manual) 2 (10.0-50.0); Monocytes % (manual) 2 (0-12); Myelocytes % 2
[2019-10-28] MEDS: DexAMETHasone SOD PHOS 10MG/1ML VIAL INJ IV SCH (11:00)
--- NOTE | 2019-10-28 11:20 | NUR ---
Patient's daughter Sasha hickey - updated on current patient condition in regards to abnormal labs and ABGs - verbalized understanding. Addendum: 10/29/19 at 1243 by Viviane Aguilar RN DEALER CARD ROOM OFFERED TO PATIENT'S DAUGHTER CHOICE TO COME TO HOSPITAL AND SEE PATIENT FOR SHORT TIME PERIOD OUTSIDE OF ROOM - STATES SHE WILL THINK ABOUT IT AND INFORM DEALER CARD ROOM OF HER DECISION.
[2019-10-28 11:24] LABS: Magnesium 2.7 mg/dL (1.6-2.6); Phosphorus 8.9 mg/dL (2.5-4.90)
--- NOTE | 2019-10-28 11:40 | NUR ---
Critical labs called to Dr Moran- order received.
[2019-10-28] MEDS: fentaNYL Drip 2500mCg/250mlNS 250 ML IV SCH (12:27)
[2019-10-28] MEDS: MIDAZOLAM DRIP 50 mg/50mL 50 ML IV SCH ×3 (12:59→23:00)
--- NOTE | 2019-10-28 14:07 | NUR ---
Patient's daughter phones - updated on patient condition - verbalizes understanding.
--- NOTE | 2019-10-28 14:10 | NUR ---
Call placed to Dr Soler re: ABG's drawn at 1349 - returned call - orders received.
[2019-10-28] MEDS ORDERED: fentaNYL Drip 2500mCg/250mlNS 250 ML IV SCH (16:38)
--- NOTE | 2019-10-28 18:10 | NUR ---
DR CRAMER NOTIFIED OF LOW SATURATIONS 78-82, RT PAGED X 3 TO EVALUATE.
--- NOTE | 2019-10-28 18:30 | NUR ---
Respiratory note: CALLED DR. CRAMER REGARDING PT CONTINUING TO DESAT INTO THE 70'S. NO NEW ORDERS AT THIS TIME. PT LAVAGED AND SUCTIONED, GIVEN MED NEB TX. SPO2 STILL IN 70'S. WILL CONTINUE TO MONITOR PT.
--- NOTE | 2019-10-28 18:40 | NUR ---
DR CRAMER RETURNS CALL - UPDATED ON LOW SAO2 78-82 -NO NEW ORDERS RECEIVED.
--- NOTE | 2019-10-28 19:30 | NUR ---
OPENING SHIFT RECEIVED REPORT FROM DAY SHIFT RN. ASSUMED CARE OF PATIENT. PATIENT INTUBATED AND SEDATED WITH NO SIGNS OR SYMPTOMS OF SOB, PAIN OR DISTRESS. 02 SAT - LOW 80'S, MD AWARE. SBP IN THE LOW 80'S, MD AWARE. RIGHT INTERNAL JUGULAR TLC - CLEAN/DRY/INTACT. DYE HUNG TO GRAVITY. PATIENT UNSTABLE TO TURN AT THIS TIME. SEDATION: VERSED - 11MG/HR FENTANYL - 200MCG/HR PROPOFOL - 40MCG/KG/MIN VASOPRESSOR: LEVOPHED - 30MCG/MIN WILL CONTINUE TO MONITOR.
--- NOTE | 2019-10-28 19:45 | NUR ---
SPOKE WITH PATIENT'S DAUGHTER DENNIS RE: VISIT TO SEE PATIENT - STATES FAMILY HAS DECIDED NOT TO COME TO HOSPITAL. DAUGHTER TEARFUL - SUPPORT GIVEN. UPDATE ON PATIENT CONDITION ALSO GIVEN - VERBALIZED UNDERSTANDING.
[2019-10-28] MEDS ORDERED: TPN*HIGH CONC* PER PHARMACY IV NR ×6 (20:00)
[2019-10-28] MEDS ORDERED: TPN PER PHARMACY IV NR ×6 (20:00)
[2019-10-28] MEDS: TPN*HIGH CONC* PER PHARMACY IV NR ×7 (20:25)
--- NOTE | 2019-10-28 23:05 | NUR ---
LOW BP SBP SUSTAINING IN THE LOW 80'S.RESTARTED DOPAMINE GTT AT 5MCG/KG/MIN. WILL CONTINUE TO MONITOR.
--- NOTE | 2019-10-28 23:30 | NUR ---
DESATURATION PATIENT DESATURATED TO LOW 70'S. CURRENT BP: 122/60. DOPAMINE GTT STOPPED AT THIS TIME. WILL CONTINUE TO MONITOR.
--- NOTE | 2019-10-28 23:35 | NUR ---
SPOKE WITH DR. HORTA MADE AWARE THAT PATIENT DESATURATED ONCE STARTED ON DOPAMINE GTT. SBP SUSTAINING IN THE LOW 80'S. RECEIVED ORDERS TO START VASOPRESSIN GTT. TORB. WILL CONTINUE TO MONITOR.
[2019-10-28] MEDS ORDERED: VASOPRESSIN 50 UNITS in D5W 5% 247.5 ML IV SCH (23:45)
[2019-10-28] MEDS ORDERED: VASOPRESSIN 20 UNIT/ML ONE (23:47)
[2019-10-29] VITALS (29 sets, daily range): BP systolic 37–117; BP diastolic 12–57
--- NOTE | 2019-10-29 01:40 | NUR ---
RT / DESATURATION SPOKE WITH RT AND MADE AWARE ABOUT PATIENT DESATURATING AND SUSTAINING IN THE LOW 70'S. PATIENT SUCTIONED - SCANT SECRETIONS FROM ETT AND ORALLY. WILL CONTINUE TO MONITOR.
--- NOTE | 2019-10-29 02:16 | NUR ---
FAMILY UPDATED SPOKE WITH DENNIS (DAUGHTER) PASSWORD VERIFIED. UPDATED DAUGHTER OF PATIENT STATUS, MADE AWARE OF DECLINE IN PATIENT STATUS. DAUGHTER WILL CALL BACK IN REGARDS TO CODE STATUS. PATIENT CURRENTLY FULL CODE AT THIS TIME.
--- NOTE | 2019-10-29 03:49 | NUR ---
DAUGHTER CALLED BACK UPDATED DAUGHTER ON PATIENT STATUS - PATIENT NOT IMPROVING. DAUGHTER REQUESTED THAT PATIENT CODE STATUS CHANGED TO DNR, REQUEST VERIFIED WITH ICU POWER PRESS SUPERVISOR. ALL QUESTIONS AND CONCERNS ADDRESSED AND ANSWERED AT THIS TIME.
[2019-10-29] MEDS: PROPOFOL 100 ML IV SCH (04:15)
[2019-10-29] MEDS: MIDAZOLAM DRIP 50 mg/50mL 50 ML IV SCH (04:15)
[2019-10-29 05:33] LABS: Hematocrit 31.8 % (41.0-53.0); Hemoglobin 9.7 g/dL (13.5-17.5); Mean Corpuscular Hemoglobin 27.8 pg (28.0-32.0); Mean Corpuscular Hgb Conc. 30.4 g/dL (32.0-36.0); Mean Corpuscular Volume 91.2 fL (80.0-100.0); Platelet Count (auto) 168 10^3/uL (140-450); Red Blood Cells 3.49 10^6/uL (4.5-5.90); Red Cell Distribution Width 19.1 % (11.8-14.3)
[2019-10-29 05:53] LABS: Calcium 7.8 mg/dL (8.5-10.1)
[2019-10-29] MEDS: FUROSEMIDE 40 MG/4 ML VIAL IV SCH (06:00)
[2019-10-29] MEDS: InsuLIN REG 1unit/0.01ml Soln (100units/ml) SC SCH ×2 (06:00)
[2019-10-29] MEDS: ACCU-CHEK COMFORT CURVE STRIP VI SCH ×2 (06:00)
[2019-10-29 06:07] LABS: Bilirubin, Total 5.3 mg/dL (0.2-1.0); Magnesium 2.8 mg/dL (1.6-2.6); Total Protein 6.7 g/dL (6.4-8.2)
--- NOTE | 2019-10-29 06:11 | NUR ---
SPOKE WITH FAMILY (DENNIS) CLARIFIED DNR CODE STATUS - FAMILY DOES NOT WANT CPR / DEFIBRILLATION / CARDIOVERSION / CARDIAC MEDICATION. FAMILY OK WITH VASOPRESSORS. WILL CONTINUE TO MONITOR.
[2019-10-29] MEDS ORDERED: PHENYLEPHRINE IV 250 ML IV ONE (06:16)
[2019-10-29 06:17] LABS: White Blood Cell 35.1 10^3/uL (4.4-10.8)
[2019-10-29 06:18] LABS: Basophils % (manual) 0 (0.0-2.0); Blast Cells 0; Eosinophils % (manual) 0 (0-7); Metamyelocytes % 0; Promyelocytes % 0; Reactive Lymphocytes 0
--- NOTE | 2019-10-29 06:20 | NUR ---
SPOKE WITH DR. HORTA MADE AWARE PATIENT DNR WITH VASOPRESSORS ONLY. SBP SUSTAINING IN THE 40'S, RECEIVED ORDERS TO START NORSYNEPHRINE AT 180MCG/MIN. TORB. NOTED AND CARRIED OUT. WILL CONTINUE TO MONITOR.
[2019-10-29] MEDS: PHENYLEPHRINE IV 250 ML IV SCH ×2 (06:30→08:39)
--- NOTE | 2019-10-29 06:30 | NUR ---
HOSPITALIST - GURIND[facility] [employer] SPOTTER. SIGNED DNR FORM.
--- NOTE | 2019-10-29 07:00 | NUR ---
UNABLE TO GET ABG. LOW BP. WILL ATTEMPT LATER.
[2019-10-29 07:01] LABS: Potassium 7.1 mmol/L (3.5-5.1)
[2019-10-29 07:02] LABS: Phosphorus 12.2 mg/dL (2.5-4.90)
[2019-10-29 07:28] LABS: Band Neutrophils % (manual) 7; Lymphocytes % (manual) 1 (10.0-50.0); Monocytes % (manual) 3 (0-12); Myelocytes % 4
--- NOTE | 2019-10-29 07:30 | NUR ---
END OF SHIFT REPORT GIVEN TO DAY SHIFT RN. CARE ENDORSED.
[2019-10-29] MEDS: ACETYLCYSTEINE 20%(200MG/ML) SOL 4ML IN SCH (07:33)
[2019-10-29] MEDS: IPRATROPIUM BROM 0.5 MG/2.5ML INH SOL NEB SCH (07:34)
[2019-10-29] MEDS: ALBUTEROL SULF 2.5 MG/0.5ML(0.5%) NEB SOLN NEB SCH (07:34)
--- NOTE | 2019-10-29 07:45 | NUR ---
DR. LEIJA CALLED AND INFORMED OF CRITICAL LABS, NEW DNR STATUS AND PATIENTS CURRENT CONDITION.
--- NOTE | 2019-10-29 08:00 | NUR ---
PATIENT TO HEMODYNAMICALLY UNSTABLE TO BE REPOSITIONED. BLOOD PRESSURE ONLY OBTAINABLE AT TIMES. DR. CRAMER MADE AWARE OF DNR STATUS AND FACT THAT PATIENT BLOOD PRESSURE EXTREMELY LOW EVEN THOUGH PATIENT IS MAXED OUT ON PRESSORS.
--- NOTE | 2019-10-29 08:33 | NUR ---
SPOKE WITH DAUGHTER UPDATED HER ON PATIENTS CURRENT CONDITION. PATIENT ACTIVELY DYING. DAUGHTER STATES THAT NO ONE IS COMING AT THIS TIME.
[2019-10-29] MEDS: cefTRIAXone 1GM/50ML D5W 50 ML IV SCH (09:00)
[2019-10-29] MEDS: AMIODARONE HCL 200 MG TAB PO SCH (10:00)
[2019-10-29] MEDS ORDERED: ENOXAPARIN SOD 60 MG/0.6 ML SYRINGE SC SCH (10:00)
[2019-10-29] MEDS: DexAMETHasone SOD PHOS 10MG/1ML VIAL INJ IV SCH (10:00)
[2019-10-29] MEDS: BACITRACIN TOP OINT 1 UD PKG TOP SCH (10:00)
[2019-10-29] MEDS ORDERED: NOREPINEPHRINE BITARTRATE 16 MG in SODIUM CHL 0.9% 250 ML IV SCH (11:30)
[2019-10-29] MEDS ORDERED: PHENYLEPHRINE INJ 40 MG in SODIUM CHL 0.9% 250 ML IV SCH (11:30)
--- NOTE | 2019-10-29 12:25 | NUR ---
[employer] ROUTE DRIVER NOTIFIED PATIENT'S DAUGHTER OF PATIENT'S - DAUGHTER TEARFUL, SUPPORT GIVEN. DAUGHTER STATES THAT PATIENT HAS ARRANGEMENTS AT [facility]. CONSENT TO RELEASE BODY TO MORTUARY RECEIVED VIA TELEPHONE.
--- NOTE | 2019-10-29 12:25 | NUR ---
REQUESTED BY DR. SIGALA TO PRONOUNCE PT. PT WAS ADMITTED 09/29, INTUBATED ON ARRIVAL. POSITIVE COVID. HAS HX NM, HTN, CHF, DM, SARCOIDOSIS. MADE DNR ON 10/28. FOUND PULSELESS AND APNEIC. ASYSTOLE IN 3 LEADS. ABSENCE OF PULSE AND RESP AFTER 0NE FULL MINUTE OF AUSCULTATION. NO DTR'S, GAG OR CORNEAL REFLEXES. TOD 1220
--- NOTE | 2019-10-29 12:40 | NUR ---
SOLDER SPRAYER CONTACTED - WILL RETURN CALL WITH CASE NUMBER.
--- NOTE | 2019-10-29 12:40 | NUR ---
CALL TO [facility] TO REPORT . RELEASE NUMBER OBTAINED #[id number] [phone].
--- NOTE | 2019-10-29 13:36 | NUR ---
SPOKE TO [facility] SHIP LABORER APPLIANCE MECHANIC. STATES NO RELEASE # AT THIS TIME. STATES TO BE REPORTED BY MORTUARY.
--- NOTE | 2019-10-29 16:59 | NUR ---
[facility] HERE TO PRODUCT MANAGEMENT INTERN BODY.
[2019-10-29] MEDS ORDERED: INSULIN R IV NR ×6 (20:00)
[2019-10-29] MEDS ORDERED: SODIUM CHLORIDE IV NR ×6 (20:00)
[2019-10-29] MEDS ORDERED: MULTIPLE VITAMIN IV NR ×6 (20:00)
[2019-10-29] MEDS ORDERED: [UNRECOGNIZED DRUG - OTHER] IV NR ×6 (20:00)
[2019-10-30] MEDS ORDERED: ENOXAPARIN SOD 40 MG/0.4 ML SYRINGE SC SCH (10:00)
== END 2019-10-29 16:40 | disposition expired | DRG 870 ==
LOC: EDBD 12:02 → ER 12:02 → TELE 12:03 → ICU WEST 10-02 00:01
PROVIDERS: ADMIT Emergency Medicine; ATTEND Hospitalist
PROC: 5A1955Z Respiratory Ventilation, Greater than 96 Consecutive Hours (ICD-10-PCS; principal; 2019-09-30)
PROC: 0BH17EZ Insertion of Endotracheal Airway into Trachea, Via Natural or Artificial Opening (ICD-10-PCS; 2019-09-30)
PROC: 02HV33Z Insertion of Infusion Device into Superior Vena Cava, Percutaneous Approach (ICD-10-PCS; 2019-09-30)
PROC: 30233K1 Transfusion of Nonautologous Frozen Plasma into Peripheral Vein, Percutaneous Approach (ICD-10-PCS; 2019-10-21)
DX: A41.89 Other specified sepsis (principal); U07.1 COVID-19; J96.01 Acute respiratory failure with hypoxia; E11.10 Type 2 diabetes mellitus with ketoacidosis without coma; J12.89 Other viral pneumonia; I21.4 Non-ST elevation (NSTEMI) myocardial infarction; R65.21 Severe sepsis with septic shock; J96.02 Acute respiratory failure with hypercapnia; N17.9 Acute kidney failure, unspecified; J98.11 Atelectasis; K72.90 Hepatic failure, unspecified without coma; Z66 Do not resuscitate; I50.9 Heart failure, unspecified; E66.01 Morbid (severe) obesity due to excess calories; I11.0 Hypertensive heart disease with heart failure; M19.90 Unspecified osteoarthritis, unspecified site; E87.6 Hypokalemia; Z68.35 Body mass index [BMI] 35.0-35.9, adult; Z88.5 Allergy status to narcotic agent; Z88.8 Allergy status to other drugs, medicaments and biological substances; Z91.041 Radiographic dye allergy status
CPT/HCPCS: 31500; 36415; 36569; 36600; 71045; 74018; 80048; 80053; 80061; 80076; 80307; 81001; 82010; 82040; 82728; 82805; 82962; 83036; 83605; 83615; 83735; 83880; 83930; 84100; 84132; 84478; 84484; 85007; 85025; 85027; 85379; 85610; 85730; 86141; 86850; 86900; 86901; 87040; 87070; 87077; 87081; 87086; 87186; 87205; 87804; 87880; 93005; 93970; 94002; 94003; 94640; 99291; C9113; G0378; J0153; J0330; J0690; J0696; J1100; J1815; J2250; J2543; J2704; J3480; J7060; J7131